=== PATIENT | female | born 1935 | race Caucasian/White ===

== ENCOUNTER 2017-01-10 18:32 | Emergency (ER) | payer MEDICARE ==
[2017-01-10] MEDS ORDERED: Ondansetron INJ* 2 MG/ML VIAL IV ONE (19:07)
[2017-01-10] MEDS ORDERED: Morphine INJ* 2 MG/ML 1 ML SYRINGE IV ONE (19:07)
[2017-01-10] MEDS ORDERED: NS 0.9% 1000 ML* 2,000 ML IV ONE (19:07)
[2017-01-10 19:52] LABS: Hematocrit 38 % (35-47); Hemoglobin 12.6 g/dl (12.0-16.0); Mean Corpuscular HGB Conc 33 g/dl (31-36); Mean Corpuscular Hemoglobin 31 pg (27-31); Mean Corpuscular Volume 94 fL (80-97); Mean Platelet Volume 9 um3 (7.4-10.4); Red Blood Count 4.05 10^6/ul (4.0-5.4); Red Cell Distribution Width 14 % (10.5-15); White Blood Count 5.8 10^3/ul (3.5-10.8)
[2017-01-10 20:09] LABS: Troponin I 0.03 ng/mL (<0.04)
[2017-01-10 20:11] LABS: ALT 9 U/L (7-52); AST 15 U/L (13-39); Albumin 3.8 g/dL (3.2-5.2); Alkaline Phosphatase 64 U/L (34-104); Amylase 68 U/L (29-103); Anion Gap 6 mmol/L (2-11); BUN/Creatinine Ratio 21.4 (8-20); Blood Urea Nitrogen 18 mg/dL (6-24); C Reactive Protein < 1.00 mg/L (< 5.00); CO2 Carbon Dioxide 25 mmol/L (22-32); Calcium 8.6 mg/dL (8.6-10.3); Chloride 107 mmol/L (101-111); Creatine Kinase 26 U/L (10-223); EGFR African American 83.3 (>60); EGFR Non-African American 64.8 (>60); Globulin 2.5 g/dL (2-4); Glucose 90 mg/dL (70-100); Lipase 22 U/L (11.0-82.0); Potassium 3.6 mmol/L (3.5-5.0); Sodium 138 mmol/L (133-145); Total Protein 6.3 g/dL (6.4-8.9)
[2017-01-10] MEDS ORDERED: Iohexol 300* (CONTRAST) 10 ML SDV IV ONE (20:57)
[2017-01-10 21:03] LABS: Urine Bacteria Absent (Absent); Urine Bilirubin Negative (Negative); Urine Glucose Negative (Negative); Urine Nitrite Negative (Negative)
--- NOTE | 2017-01-10 21:46 | RAD ---
CLINICAL HISTORY: Bilateral lower quadrant abdominal pain COMPARISON: None TECHNIQUE: Multiple contiguous axial CT scans were obtained of the abdomen and pelvis after the administration of intravenous contrast. Coronal and sagittal multiplanar reformations are submitted for review. Oral contrast was administered. Delayed images were obtained through the abdomen and pelvis. FINDINGS: LUNG BASES: The lung bases are clear. LIVER: The liver is diffusely low in attenuation compared to the spleen. There are low-attenuation lesions of the liver, the largest measuring 30 Hounsfield units in attenuation and is partially calcified. The others are too small to definitively characterize BILE DUCTS: There is no intrahepatic or extrahepatic biliary dilatation. GALLBLADDER: The gallbladder is normal, without pericholecystic inflammatory change. PANCREAS: The pancreas is normal, without mass or ductal dilatation. SPLEEN: Normal in size and appearance. UPPER GI TRACT: Evaluation of the gastrointestinal tract is limited by incomplete gastric distention. The upper GI tract is unremarkable. SMALL BOWEL AND MESENTERY: The small bowel is normal in contour, course, and caliber. There is no obstruction or dilatation. COLON: The colon is normal in contour, course, caliber. There is no pericolonic inflammatory change. There is large amount of stool within the colon. There is a tubular, vermiform, hollow viscus that is blind ending, and originates from the cecum, consistent with a normal appendix. There is no periappendiceal inflammatory change. ADRENALS: There is a 1.3 cm left adrenal nodule measuring 15 tonsils units in attenuation KIDNEYS: Simple renal cysts are noted BLADDER: The bladder is incompletely distended but is grossly normal. PELVIC ORGANS: The pelvic organs are not visualized. AORTA: There is calcific atherosclerotic disease of the abdominal aorta and its branches, without aneurysmal dilatation IVC: Unremarkable LYMPH NODES: There is no lymphadenopathy by size criteria. ABDOMINAL WALL: There is no evidence for abdominal wall hernia. BONES AND SOFT TISSUES: There is diffuse osteopenia. Degenerative changes are noted of the spine OTHER: None IMPRESSION: 1. INDETERMINATE LOW-ATTENUATION LESIONS OF THE LIVER. CLINICALLY INDICATED, THIS CAN BE FURTHER EVALUATED WITH HEPATIC ULTRASOUND, CONTRAST ENHANCED MRI OF THE ABDOMEN, MULTIPHASE CONTRAST-ENHANCED LIVER PROTOCOL CT OF THE ABDOMEN. 2. ATHEROSCLEROSIS. 3. INDETERMINATE LEFT ADRENAL NODULE. AN INCIDENTAL FINDING IN THE ABSENCE OF HISTORY OF MALIGNANCY, THIS CAN BE FOLLOWED UP WITH ADRENAL PROTOCOL MRI OR ADRENAL PROTOCOL CT IN ONE YEAR. 4. NO ACUTE CT PATHOLOGY OF THE VISUALIZED ABDOMEN OR PELVIS
--- NOTE | 2017-01-10 22:08 | ED ---
Mraielena Crawford Auryana, scribed for Chacorta Bo MD on 01/10/17 at 1910 . Abdominal Pain/Female - HPI Summary HPI Summary: 81 year old female comes in with intermittent abdominal fullness and bloating starting "a while ago". Patient states that she came in today because she has not been getting better. She reports small bowel movements-some improvement today, vomiting x1 on 4 days ago, decreased appetite with weight loss, and facial flushing, but denies diarrhea, blood in stool, SOB, chest pain, fever, and chills. Pain is improved with bowel movements. Recent course of ABX for U.R.I. Patient also reports that she has been under a lot of stress-10/28/16 's passing- and believes she has "ulcers". She denies any recent colonoscopy. PMHx is significant for hysterectomy and depression but denies any history of diverticulitis. Social history is significant for tobacco and alcohol use - History of Current Complaint Chief Complaint: EDAbdPain Stated Complaint: ABD PAIN Time Seen by Provider: 01/10/17 18:49 Hx Obtained From: Patient Hx Last Menstrual Period: N/A ?: No Onset/Duration: Gradual Onset, Still Present Timing: Intermittent Episode Lasting Severity Initially: Mild Severity Currently: Mild Location: Diffuse Radiates: No Character: Other: - bloating Aggravating Factor(s): Nothing Alleviating Factor(s): Nothing Associated Signs and Symptoms: Positive: Decreased Appetite - with weight loss, Vomiting - x1 4 days ago, Other: - small bowel movements, facial flushing. Negative: Chest Pain, Blood in Stool, Diarrhea Allergies/Adverse Reactions: Allergies Allergy/AdvReac Type Severity Reaction Status Date / Time No Known Allergies Allergy Verified 01/10/17 19:23 Home Medications: Home Medications Fluoxetine HCl [Prozac] 40 mg PO 01/10/17 [History] PMH/Surg Hx/FS Hx/Imm Hx Cardiovascular History: Denies: Hx Congenital Heart Disease Respiratory History: Denies: Hx Chronic Obstructive Pulmonary Disease (COPD) Psychiatric History: Reports: Hx Depression - Surgical History Surgery Procedure, Year, and Place: Hysterectomy Infectious Disease History: No Infectious Disease History: Denies: Traveled Outside the [place] in Last 30 Days - Family History Known Family History: Positive: Other - parkinsons - Social History Occupation: Retired Lives: With Family Alcohol Use: Occasionally Alcohol Amount: pt Hx Substance Use: No Substance Use Type: Reports: None Hx Tobacco Use: Yes Smoking Status (MU): Current Every Day Smoker Type: Cigarettes Review of Systems Constitutional: Other - facial flushing Eyes: Negative ENT: Negative Cardiovascular: Negative Negative: Chest Pain Respiratory: Negative Negative: Shortness Of Breath, Cough Positive: Abdominal Pain - fullness, Vomiting - 4 days ago, Other - decreased appetite with weight loss and small bowel movements. Negative: Nausea Genitourinary: Negative Musculoskeletal: Negative Skin: Negative Neurological: Negative Psychological: Normal All Other Systems Reviewed And Are Negative: Yes Physical Exam - Summary Physical Exam Summary: The patient is well-nourished in no acute distress and in no acute pain. The skin is warm and dry and skin color reflects adequate perfusion. Decreased skin turgor. HEENT: The head is normocephalic and atraumatic. The pupils are equal and reactive. The conjunctivae are clear and without drainage. Nares are patent and without drainage. Mouth reveals dry mucous membranes and the throat is without erythema and exudate. The external ears are intact. The ear canals are patent and without drainage. The tympanic membranes are intact. Neck is supple with full range of motion and non-tender. There are no carotid bruits. There is no neck vein distension. Respiratory: Chest is non-tender. Lungs are clear to auscultation and breath sounds are symmetrical and equal. No rales, rhonchi or wheezing. Cardiovascular: Heart is regular rate and rhythm. There is no murmur or rub auscultated. There is no peripheral edema and pulses are symmetrical and equal. Abdomen: The abdomen is soft and tender in the RLQ/LLQ. No percussion tenderness. No bruit. There are normal bowel sounds heard in all four quadrants and there is no organomegaly palpated. No pulsatile mass. Musculoskeletal: There is no back pain noted. Extremities are non-tender with full range of motion. There is good capillary refill- 2 seconds. There is no peripheral edema or calf tenderness elicited. Neurological: Patient is alert and oriented to person, place and time. The patient has symmetrical motor strength in all four extremities. Cranial nerves are grossly intact. Deep tendon reflexes are symmetrical and equal in all four extremities. Psychiatric: The patient has an appropriate affect and does not exhibit any anxiety or depression. Triage Information Reviewed: Yes Vital Signs On Initial Exam: Initial Vitals Temp Pulse Resp BP Pulse Ox 98.2 F 89 16 190/86 96 01/10/17 18:33 01/10/17 18:33 01/10/17 18:33 01/10/17 18:33 01/10/17 18:33 Vital Signs Reviewed: Yes - [place] Coma Scale Coma Scale Total: 15 Diagnostics - Vital Signs Vital Signs Temp Pulse Resp BP Pulse Ox 01/10/17 18:45 86 158/74 95 01/10/17 18:44 85 97 01/10/17 18:35 98.2 F 89 16 190/86 96 01/10/17 18:33 98.2 F 89 16 190/86 96 - Laboratory Lab Results: Lab Results 01/10/17 01/10/17 01/10/17 Range/Units 18:30 18:30 18:30 WBC 5.8 (3.5-10.8) 10^3/ul RBC 4.05 (4.0-5.4) 10^6/ul Hgb 12.6 (12.0-16.0) g/dl Hct 38 (35-47) % MCV 94 (80-97) fL MCH 31 (27-31) pg MCHC 33 (31-36) g/dl RDW 14 (10.5-15) % Plt Count 221 (150-450) 10^3/ul MPV 9 (7.4-10.4) um3 Neut % (Auto) 67.9 (38-83) % Lymph % (Auto) 21.0 L (25-47) % Coal % (Auto) 7.9 (1-9) % Eos % (Auto) 2.2 (0-6) % Baso % (Auto) 1.0 (0-2) % Absolute Neuts (auto) 4.0 (1.5-7.7) 10^3/ul Absolute Lymphs (auto) 1.2 (1.0-4.8) 10^3/ul Absolute Monos (auto) 0.5 (0-0.8) 10^3/ul Absolute Eos (auto) 0.1 (0-0.6) 10^3/ul Absolute Basos (auto) 0.1 (0-0.2) 10^3/ul Absolute Nucleated RBC 0 10^3/ul Nucleated RBC % 0 Sodium 138 (133-145) mmol/L Potassium 3.6 (3.5-5.0) mmol/L Chloride 107 (101-111) mmol/L Carbon Dioxide 25 (22-32) mmol/L Anion Gap 6 (2-11) mmol/L BUN 18 (6-24) mg/dL Creatinine 0.84 (0.51-0.95) mg/dL Est GFR ( Amer) 83.3 (>60) Est GFR (Non-Af Amer) 64.8 (>60) BUN/Creatinine Ratio 21.4 H (8-20) Glucose 90 (70-100) mg/dL Lactic Acid 0.6 (0.5-2.0) mmol/L Calcium 8.6 (8.6-10.3) mg/dL Total Bilirubin 0.40 (0.2-1.0) mg/dL AST 15 (13-39) U/L ALT 9 (7-52) U/L Alkaline Phosphatase 64 (34-104) U/L Total Creatine Kinase 26 (10-223) U/L Troponin I 0.03 (<0.04) ng/mL C-Reactive Protein < 1.00 (< 5.00) mg/L Total Protein 6.3 L (6.4-8.9) g/dL Albumin 3.8 (3.2-5.2) g/dL Globulin 2.5 (2-4) g/dL Albumin/Globulin Ratio 1.5 (1-3) Amylase 68 (29-103) U/L Lipase 22 (11.0-82.0) U/L Urine Color Urine Appearance Urine pH (5-9) Ur Specific [place] (1.010-1.030) Urine Protein (Negative) Urine Ketones (Negative) Urine Blood (Negative) Urine Nitrate (Negative) Urine Bilirubin (Negative) Urine Urobilinogen (Negative) Ur Leukocyte Esterase (Negative) Urine WBC (Auto) (Absent) Urine RBC (Auto) (Absent) Urine Bacteria (Absent) Urine Glucose (Negative) 01/10/17 Range/Units 20:40 WBC (3.5-10.8) 10^3/ul RBC (4.0-5.4) 10^6/ul Hgb (12.0-16.0) g/dl Hct (35-47) % MCV (80-97) fL MCH (27-31) pg MCHC (31-36) g/dl RDW (10.5-15) % Plt Count (150-450) 10^3/ul MPV (7.4-10.4) um3 Neut % (Auto) (38-83) % Lymph % (Auto) (25-47) % Coal % (Auto) (1-9) % Eos % (Auto) (0-6) % Baso % (Auto) (0-2) % Absolute Neuts (auto) (1.5-7.7) 10^3/ul Absolute Lymphs (auto) (1.0-4.8) 10^3/ul Absolute Monos (auto) (0-0.8) 10^3/ul Absolute Eos (auto) (0-0.6) 10^3/ul Absolute Basos (auto) (0-0.2) 10^3/ul Absolute Nucleated RBC 10^3/ul Nucleated RBC % Sodium (133-145) mmol/L Potassium (3.5-5.0) mmol/L Chloride (101-111) mmol/L Carbon Dioxide (22-32) mmol/L Anion Gap (2-11) mmol/L BUN (6-24) mg/dL Creatinine (0.51-0.95) mg/dL Est GFR ( Amer) (>60) Est GFR (Non-Af Amer) (>60) BUN/Creatinine Ratio (8-20) Glucose (70-100) mg/dL Lactic Acid (0.5-2.0) mmol/L Calcium (8.6-10.3) mg/dL Total Bilirubin (0.2-1.0) mg/dL AST (13-39) U/L ALT (7-52) U/L Alkaline Phosphatase (34-104) U/L Total Creatine Kinase (10-223) U/L Troponin I (<0.04) ng/mL C-Reactive Protein (< 5.00) mg/L Total Protein (6.4-8.9) g/dL Albumin (3.2-5.2) g/dL Globulin (2-4) g/dL Albumin/Globulin Ratio (1-3) Amylase (29-103) U/L Lipase (11.0-82.0) U/L Urine Color Straw Urine Appearance Clear Urine pH 7.0 (5-9) Ur Specific [place] 1.006 L (1.010-1.030) Urine Protein Negative (Negative) Urine Ketones Trace H (Negative) Urine Blood Negative (Negative) Urine Nitrate Negative (Negative) Urine Bilirubin Negative (Negative) Urine Urobilinogen Negative (Negative) Ur Leukocyte Esterase Trace H (Negative) Urine WBC (Auto) Trace(0-5/hpf) (Absent) Urine RBC (Auto) Trace(0-2/hpf) (Absent) Urine Bacteria Absent (Absent) Urine Glucose Negative (Negative) Result Diagrams: 01/10/17 18:30 01/10/17 18:30 Lab Statement: Any lab studies that have been ordered have been reviewed, and results considered in the medical decision making process. - CT ABD/PEL CT Interpretation: Positive (See Comments) - IMPRESSION: 1. INDETERMINATE LOW- ATTENUATION LESIONS OF THE LIVER. CLINICALLY INDICATED, THIS CAN BE FURTHER EVALUATED WITH HEPATIC ULTRASOUND, CONTRAST ENHANCED MRI OF THE ABDOMEN, MULTIPHASE CONTRAST-ENHANCED LIVER PROTOCOL CT OF THE ABDOMEN. 2. ATHEROSCLEROSIS. 3. INDETERMINATE LEFT ADRENAL NODULE. AN INCIDENTAL FINDING IN THE ABSENCE OF HISTORY OF MALIGNANCY, THIS CAN BE FOLLOWED UP WITH ADRENAL PROTOCOL MRI OR ADRENAL PROTOCOL CT IN ONE YEAR. 4. NO ACUTE CT PATHOLOGY OF THE VISUALIZED ABDOMEN OR PELVIS CT Interpretation Completed By: Radiologist - EKG 18:36 Cardiac Rate: Tachycardia EKG Rhythm: Sinus Tachycardia ST Segment: Normal Ectopy: None EKG Interpretation: Sinus Rhythm with PACs, no ST elevation, NML axis, No STEMI Re-Evaluation - Re-Evaluation First Eval Re-Evaluation Time: 20:58 - assess pain level and overall condition Change: Improved Comment: states feels a little better- refused pain medication Second Eval Re-Evaluation Time: 21:51 - discussed CT ABD/PEL results Change: Improved Comment: will discharge home Abdominal Pain Fem Course/Dx - Course Course Of Treatment: 81 year old female comes to the ED with abdominal bloating/ fullness, decreased appetite with weight loss, and small bowel movements. She reports being very stressed since husbands passing (10/28/16). Labs, EKG, and CT ABD/PEL ordered. Labs- NML. EKG shows sinus tachycardia with PACs-no STEMI, no ST elevation, nml axis. CT ABD/PEL- IMPRESSION: 1. INDETERMINATE LOW- ATTENUATION LESIONS OF THE LIVER. CLINICALLY INDICATED, THIS CAN BE FURTHER EVALUATED WITH HEPATIC ULTRASOUND, CONTRAST ENHANCED MRI OF THE ABDOMEN, MULTIPHASE CONTRAST-ENHANCED LIVER PROTOCOL CT OF THE ABDOMEN. 2. ATHEROSCLEROSIS. 3. INDETERMINATE LEFT ADRENAL NODULE. AN INCIDENTAL FINDING IN THE ABSENCE OF HISTORY OF MALIGNANCY, THIS CAN BE FOLLOWED UP WITH ADRENAL PROTOCOL MRI OR ADRENAL PROTOCOL CT IN ONE YEAR. 4. NO ACUTE CT PATHOLOGY OF THE VISUALIZED ABDOMEN OR PELVIS. Will discharge home. advise to increase fluids, take miralax , and follow up with Daphne Hatfield. - Diagnoses Differential Diagnosis: Positive: Appendicitis, Bowel Obstruction, Constipation , Diverticulitis, Gall Bladder Disease, Other - colitis Provider Diagnoses: Constipation, Dehydration Discharge - Discharge Plan Condition: Stable Disposition: HOME Patient Education Materials: Constipation (ED), Dehydration (ED), Polyethylene Glycol 3350 (By mouth) Referrals: Daphne Wood MD [Primary Care Provider] - 2 Days Additional Instructions: Increase fluids to stay hydrated and take Miralax for constipation relief The documentation as recorded by the Marielena rivera Auryana accurately reflects the service I personally performed and the decisions made by , Chacorta Bo MD.
[2017-01-10 22:50] VITALS: BP 179/74
== END 2017-01-10 22:50 | disposition home or self-care (01) ==
LOC: ED 18:32
DX: K59.00 Constipation, unspecified (principal); E86.0 Dehydration; R63.0 Anorexia; R11.10 Vomiting, unspecified
CPT/HCPCS: 36415; 74177; 80053; 81003; 81015; 82150; 82550; 83605; 83690; 84484; 85025; 86140; 87086; 93005; 96374; 96375; 99283; J2270; J2405; Q9967

== ENCOUNTER 2017-06-17 01:36 | Emergency (ER) | payer MEDICARE ==
[2017-06-17 02:31] LABS: Hematocrit 33 % (35-47); Hemoglobin 11.3 g/dl (12.0-16.0); Mean Corpuscular HGB Conc 34 g/dl (31-36); Mean Corpuscular Hemoglobin 32 pg (27-31); Mean Corpuscular Volume 94 fL (80-97); Mean Platelet Volume 9 um3 (7.4-10.4); Red Blood Count 3.55 10^6/ul (4.0-5.4); Red Cell Distribution Width 14 % (10.5-15); White Blood Count 5.2 10^3/ul (3.5-10.8)
[2017-06-17 02:48] LABS: Albumin 3.9 g/dL (3.2-5.2); BUN/Creatinine Ratio 33.7 (8-20); C Reactive Protein 2.61 mg/L (< 5.00); Calcium 8.8 mg/dL (8.6-10.3); EGFR African American 84.2 (>60); EGFR Non-African American 65.5 (>60); Globulin 2.5 g/dL (2-4); Potassium 3.5 mmol/L (3.5-5.0); Total Bilirubin 0.3 mg/dL (0.2-1.0); Total Protein 6.4 g/dL (6.4-8.9); Troponin I 0.01 ng/mL (<0.04)
[2017-06-17] MEDS ORDERED: Iohexol 300* (CONTRAST) 10 ML SDV IV ONE (04:38)
[2017-06-17 06:15] LABS: Urine Bilirubin Negative (Negative); Urine Glucose Negative (Negative); Urine Nitrite Negative (Negative)
--- NOTE | 2017-06-17 07:53 | RAD ---
INDICATION: Abdominal pain COMPARISON: None TECHNIQUE: An AP portable view obtained at 0224 hours is submitted. FINDINGS: Bones/Soft Tissues: There are no acute bony findings. Cardiomediastinal: The cardiomediastinal silhouette is normal. Lungs: There are no infiltrates. Pleura: There are no pleural effusions. Other: None IMPRESSION: NEGATIVE EXAMINATION
--- NOTE | 2017-06-17 08:04 | RAD ---
INDICATION: 82-year-old with right lower quadrant pain COMPARISON: CT January 10, 2017 TECHNIQUE: Axial source images were obtained from the hemidiaphragms to the symphysis pubis following administration of oral and intravenous contrast. 59 mL Omnipaque 300 was utilized. Coronal and sagittal reconstructed images were acquired. Lung bases: There are emphysematous changes in the lung bases. Liver: The liver is mildly enlarged. There are no new suspicious. There are several low-density hepatic lesions which likely cysts or hemangiomas. The appearance is stable. There is no ductal dilatation. Gallbladder: There are no calcified gallstones. There is no evidence of wall thickening or pericholecystic fluid. Spleen: The spleen is normal in size. There are no masses. Pancreas: There is no focal pancreatic mass or ductal dilatation. Adrenal glands: There is suspected mild adrenal hyperplasia. Kidneys: The kidneys are normal in size and position. There are prompt nephrograms and there is prompt excretion bilaterally. There are no new renal parenchymal masses. There are renal cysts, unchanged . There are several renal calcifications. Unchanged. These may represent nonobstructive calculi or could be vascular in origin. Adenopathy: There is no evidence of adenopathy by size criteria. Fluid collections: There are no free or localized fluid collections. Vessels:There are atherosclerotic changes involving the aorta and iliac vessels. There is no focal aneurysm. The IVC appears normal. GI tract: There are no acute CT bowel findings. There is no obstruction. The stomach and small bowel appear normal. The lower GI tract is normal. The cecum, ileocecal valve, and terminal ileum appear normal. The appendix is visualized and appear normal. Pelvic organs: There is hysterectomy. There is no adnexal mass Bladder: There are no bladder masses. Abdominal and pelvic soft tissues: There is a small fat-containing left inguinal hernia.. Osseous structures: There are no acute osseous findings. Other: None IMPRESSION: NO ACUTE CT FINDINGS. NO MASS OR INFLAMMATORY CHANGES. NORMAL APPENDIX.
[2017-06-17 08:32] VITALS: BP 189/83
--- NOTE | 2017-06-17 14:25 | ED ---
Liban Crawford Rebecca, scribed for Yenny Jerez MD on 06/17/17 at 0410 . Abdominal Pain/Female - HPI Summary HPI Summary: Pt is an 82 y/o F BIBA who presents to ED c/o RLE pain. Pt reports the pain has been present for "quite a while." The pain worsened tonight while she was standing in her kitchen where EMS found her guarding upon arrival. Upon arrival in the ED, pain has significantly improved, now ranked 1-2/10 and charcaterized as aching, though on triage pain was noted to be 3/10. Sx aggravated by nothing , alleviated by spontaneous resolution. Denies SOB. Pt was not given pain medication while en route to [facility] ED. Pt confirms that her appendix is still present. Pt recently picked up Librax and Prozac. - History of Current Complaint Chief Complaint: EDAbdPain Stated Complaint: ABD PAIN Hx Obtained From: Patient Hx Last Menstrual Period: N/A Onset/Duration: Still Present, Worse Since - Tonight Severity Initially: Severe Severity Currently: Mild Pain Intensity: 2 Pain Scale Used: 0-10 Numeric Location: Discrete At: RLQ Character: Other: - Aching Aggravating Factor(s): Nothing Alleviating Factor(s): Spontaneous Resolution Associated Signs and Symptoms: Positive: Negative Allergies/Adverse Reactions: Allergies Allergy/AdvReac Type Severity Reaction Status Date / Time No Known Allergies Allergy Verified 01/10/17 19:23 Home Medications: Home Medications chlordiazePOXIDE/Clidinium [Librax] 2.5 - 5 mg PO DAILY 06/17/17 [History Confirmed 06/17/17] PMH/Surg Hx/FS Hx/Imm Hx Endocrine/Hematology History: Denies: Hx Diabetes Cardiovascular History: Denies: Hx Congenital Heart Disease, Hx Hypertension Respiratory History: Denies: Hx Chronic Obstructive Pulmonary Disease (COPD) History: Denies: Hx Dialysis, Hx Renal Disease Psychiatric History: Reports: Hx Depression - Surgical History Surgery Procedure, Year, and Place: Hysterectomy Infectious Disease History: No Infectious Disease History: Denies: Traveled Outside the [place] in Last 30 Days - Family History Known Family History: Positive: Other - parkinsons - Social History Alcohol Use: Daily Alcohol Amount: several per day Hx Substance Use: No Substance Use Type: Reports: None Hx Tobacco Use: Yes Smoking Status (MU): Current Every Day Smoker Type: Cigarettes Review of Systems Negative: Shortness Of Breath Positive: Abdominal Pain All Other Systems Reviewed And Are Negative: Yes Physical Exam Triage Information Reviewed: Yes Vital Signs On Initial Exam: Initial Vitals Temp Pulse Resp BP Pulse Ox 98.4 F 78 16 139/66 98 06/17/17 01:41 06/17/17 01:41 06/17/17 01:41 06/17/17 01:41 06/17/17 01:41 Vital Signs Reviewed: Yes Appearance: Positive: Well-Appearing, Well-Nourished, Pain Distress - Mild Skin: Positive: Warm, Skin Color Reflects Adequate Perfusion Head/Face: Positive: Normal Head/Face Inspection Eyes: Positive: Conjunctiva Clear ENT: Positive: Normal ENT inspection Neck: Positive: Supple Respiratory/Lung Sounds: Positive: Clear to Auscultation, Breath Sounds Present , Other - No respiratory distress Cardiovascular: Positive: RRR, Pulses are Symmetrical in both Upper and Lower Extremities, Other - Brisk capillary refill. Negative: Murmur Abdomen Description: Positive: Nontender, No Organomegaly, Soft. Negative: CVA Tenderness (R), CVA Tenderness (L), Distended, Guarding, Hepatomegaly, McBurney' s Point Tenderness, Peritoneal Signs, Pulsatile Mass, Splenomegaly Bowel Sounds: Positive: Present Musculoskeletal: Positive: Strength/ROM Intact Neurological: Positive: Sensory/Motor Intact, Alert, Oriented to Person Place, Time, Facial Symmetry, Speech Normal Psychiatric: Positive: Normal - Brandon Coma Scale Coma Scale Total: 15 Diagnostics - Vital Signs Vital Signs Temp Pulse Resp BP Pulse Ox 06/17/17 04:00 81 23 95 06/17/17 03:54 80 22 179/85 94 06/17/17 03:30 81 23 195/86 94 06/17/17 03:00 79 21 175/83 95 06/17/17 02:34 80 23 155/79 96 06/17/17 01:41 98.4 F 78 16 139/66 98 - Laboratory Lab Results: Lab Results 06/17/17 06/17/17 06/17/17 Range/Units 02:20 02:20 02:20 WBC 5.2 (3.5-10.8) 10^3/ul RBC 3.55 L (4.0-5.4) 10^6/ul Hgb 11.3 L (12.0-16.0) g/dl Hct 33 L (35-47) % MCV 94 (80-97) fL MCH 32 H (27-31) pg MCHC 34 (31-36) g/dl RDW 14 (10.5-15) % Plt Count 196 (150-450) 10^3/ul MPV 9 (7.4-10.4) um3 Neut % (Auto) 70.0 (38-83) % Lymph % (Auto) 17.4 L (25-47) % Navarro % (Auto) 7.9 (1-9) % Eos % (Auto) 3.9 (0-6) % Baso % (Auto) 0.8 (0-2) % Absolute Neuts (auto) 3.7 (1.5-7.7) 10^3/ul Absolute Lymphs (auto) 0.9 L (1.0-4.8) 10^3/ul Absolute Monos (auto) 0.4 (0-0.8) 10^3/ul Absolute Eos (auto) 0.2 (0-0.6) 10^3/ul Absolute Basos (auto) 0 (0-0.2) 10^3/ul Absolute Nucleated RBC 0 10^3/ul Nucleated RBC % 0 INR (Anticoag Therapy) (0.89-1.11) APTT (26.0-36.3) seconds Sodium 137 (133-145) mmol/L Potassium 3.5 (3.5-5.0) mmol/L Chloride 104 (101-111) mmol/L Carbon Dioxide 25 (22-32) mmol/L Anion Gap 8 (2-11) mmol/L BUN 28 H (6-24) mg/dL Creatinine 0.83 (0.51-0.95) mg/dL Est GFR ( Amer) 84.2 (>60) Est GFR (Non-Af Amer) 65.5 (>60) BUN/Creatinine Ratio 33.7 H (8-20) Glucose 140 H (70-100) mg/dL Lactic Acid 1.9 (0.5-2.0) mmol/L Calcium 8.8 (8.6-10.3) mg/dL Total Bilirubin 0.30 (0.2-1.0) mg/dL AST 15 (13-39) U/L ALT 12 (7-52) U/L Alkaline Phosphatase 75 (34-104) U/L Total Creatine Kinase 31 (10-223) U/L Troponin I 0.01 (<0.04) ng/mL C-Reactive Protein 2.61 (< 5.00) mg/L B-Natriuretic Peptide ( - 100) pg/mL Total Protein 6.4 (6.4-8.9) g/dL Albumin 3.9 (3.2-5.2) g/dL Globulin 2.5 (2-4) g/dL Albumin/Globulin Ratio 1.6 (1-3) Amylase 57 (29-103) U/L Lipase 20 (11.0-82.0) U/L 06/17/17 06/17/17 Range/Units 02:20 02:20 WBC (3.5-10.8) 10^3/ul RBC (4.0-5.4) 10^6/ul Hgb (12.0-16.0) g/dl Hct (35-47) % MCV (80-97) fL MCH (27-31) pg MCHC (31-36) g/dl RDW (10.5-15) % Plt Count (150-450) 10^3/ul MPV (7.4-10.4) um3 Neut % (Auto) (38-83) % Lymph % (Auto) (25-47) % Navarro % (Auto) (1-9) % Eos % (Auto) (0-6) % Baso % (Auto) (0-2) % Absolute Neuts (auto) (1.5-7.7) 10^3/ul Absolute Lymphs (auto) (1.0-4.8) 10^3/ul Absolute Monos (auto) (0-0.8) 10^3/ul Absolute Eos (auto) (0-0.6) 10^3/ul Absolute Basos (auto) (0-0.2) 10^3/ul Absolute Nucleated RBC 10^3/ul Nucleated RBC % INR (Anticoag Therapy) 0.84 L (0.89-1.11) APTT 28.4 (26.0-36.3) seconds Sodium (133-145) mmol/L Potassium (3.5-5.0) mmol/L Chloride (101-111) mmol/L Carbon Dioxide (22-32) mmol/L Anion Gap (2-11) mmol/L BUN (6-24) mg/dL Creatinine (0.51-0.95) mg/dL Est GFR ( Amer) (>60) Est GFR (Non-Af Amer) (>60) BUN/Creatinine Ratio (8-20) Glucose (70-100) mg/dL Lactic Acid (0.5-2.0) mmol/L Calcium (8.6-10.3) mg/dL Total Bilirubin (0.2-1.0) mg/dL AST (13-39) U/L ALT (7-52) U/L Alkaline Phosphatase (34-104) U/L Total Creatine Kinase (10-223) U/L Troponin I (<0.04) ng/mL C-Reactive Protein (< 5.00) mg/L B-Natriuretic Peptide 91 ( - 100) pg/mL Total Protein (6.4-8.9) g/dL Albumin (3.2-5.2) g/dL Globulin (2-4) g/dL Albumin/Globulin Ratio (1-3) Amylase (29-103) U/L Lipase (11.0-82.0) U/L Result Diagrams: 06/17/17 02:20 06/17/17 02:20 Lab Statement: Any lab studies that have been ordered have been reviewed, and results considered in the medical decision making process. - Radiology CXR Xray Interpretation: No Acute Changes - NAD Radiology Interpretation Completed By: ED Physician - CT CT Abd/Pel CT Interpretation Completed By: Radiologist - Non bowel obstruction, colitis, diverticulitis, free fluid or free air. Normal appendix. Small probable hepatic cysts or hemangiomas, one with a punctate calcification. Unremarkable pancreas and galbladder. Bilateral renal cysts. Vascular calcifications versus small nonobstructing stones right kidney. Indeterminate 2 cm left adrenal nodule. Small left inguinal region hernia containing fat. Hysterectomy. Emphysematous changes lung bases. ED phsyician reviewed radiology report and agrees. - EKG 0405 Cardiac Rate: NL - 82 bpm EKG Rhythm: Sinus Rhythm EKG Interpretation: Nl AV/IV CT, nl QTC, LAD EKG Comparison: Other - Compared with EKG on 01/10/2017 she is now in sinus rhythm Re-Evaluation - Re-Evaluation First Eval Re-Evaluation Time: 05:35 Change: Improved Comment: Pt reports that she is feeling pretyt well with pain improves. Reports that her renuka is currently not present and that if she were home at this time, she would not have called EMS. Pt is surprised that her BP has been elevated because she is typically hypotensive. Denies dysuria and SOB. While evaluaitng the pt, her BP is 173/85. Denies SUTTON, chest pain. She receives injections and states that she epxerineced L-sided temporal pain a few days ago, but that pain is currently not bothering her. Typically BP is around 130/70-60. Second Eval Re-Evaluation Time: 06:43 Change: Improved Comment: Pt was asleep upon arrival in the room and she is without any pain. Denies any SUTTON, CP, SOB. BP was 171/77. Abdominal Pain Fem Course/Dx - Course Course Of Treatment: Pt is an 82 y/o F BIBA who presents to ED c/o RLE pain. Pt reports the pain has been present for "quite a while." The pain worsened tonight while she was standing in her kitchen where EMS found her guarding upon arrival. Upon arrival in the ED, pain has significantly improved, now ranked 1-2 /10 and charcaterized as aching, though on triage pain was noted to be 3/10. Sx aggravated by nothing, alleviated by spontaneous resolution. Denies SOB. Pt was not given pain medication while en route to [facility] ED. Pt confirms that her appendix is still present. Pt recently picked up Librax and Prozac. CXR reveals no acute findings, as read by ED physicain. CT Abd/Pel report found above. UA negative for UTI. Troponin of 0.01. Pt will be D/C to home with Dx of abdominal pain and asymptomatic hypertension. She understands and agrees. Patient medications reviewed this visit. Elevated BP noted. - Diagnoses Provider Diagnoses: Abdominal pain, Asymptomatic hypertension Discharge - Discharge Plan Condition: Stable Disposition: HOME Patient Education Materials: Acute Abdominal Pain (ED), Hypertension (ED) Referrals: Daphne Reyes MD [Primary Care Provider] - Additional Instructions: See Dr. Reyes as scheduled today. Your CT abd and pelvis with oral and IV contrast was negative. Your appenix was normal. We have given you a copy of your labs. You had elevated blood pressure while you were here in the ER, without any chest pain, shortness of breath or headache or neurologic changes. The highest was 198/72 and the lowest BP after 171/77 after it had been elevated. Your initial BP was 139/66. Return to the ED if you have any new or worsening symptoms. The documentation as recorded by the Liban rivera Rebecca accurately reflects the service I personally performed and the decisions made by me, Yenny Jerez MD.
== END 2017-06-17 10:06 | disposition home or self-care (01) ==
LOC: ED 01:36
DX: R10.9 Unspecified abdominal pain (principal); F17.210 Nicotine dependence, cigarettes, uncomplicated; I10 Essential (primary) hypertension
CPT/HCPCS: 36415; 71010; 74177; 80053; 81003; 82150; 82550; 83605; 83690; 83880; 84484; 85025; 85610; 85730; 86140; 93005; 99284; Q9967

== ENCOUNTER 2019-11-08 00:40 | Inpatient (IN) | payer MEDICARE ==
--- NOTE | 2019-11-08 00:56 | ED ---
Adult Trauma - HPI Summary HPI Summary: Complains of left hip pain status post mechanical fall. Patient on floor for 2 hours before being found. Patient denies any other pain, injury or symptoms. - History of Current Complaint Chief Complaint: EDFall Stated Complaint: LEG INJURY PER EMS Time Seen by Provider: 11/08/19 00:49 Hx Obtained From: Patient Hx Last Menstrual Period: N/A Mechanism of Injury: Fall Loss of Consciousness: unsure Onset of Pain: Immediate Onset Severity: Moderate Current Severity: Moderate Pain Intensity: 6 Pain Scale Used: 0-10 Numeric Location: Abdomen/Pelvis Character: Aching, Sharp Aggravating Factor(s): Movement Alleviating Factor(s): Nothing Associated Signs & Symptoms: Positive: Negative - Additional Pertinent History Primary Care Physician: MARCELO - Allergy/Home Medications Allergies/Adverse Reactions: Allergies Allergy/AdvReac Type Severity Reaction Status Date / Time No Known Allergies Allergy Verified 11/08/19 00:47 Home Medications: Home Medications FLUoxetine CAP* [PROzac CAP*] 60 mg PO DAILY 11/08/19 [History Confirmed ] PMH/Surg Hx/FS Hx/Imm Hx Endocrine/Hematology History: Denies: Hx Diabetes Cardiovascular History: Denies: Hx Congenital Heart Disease, Hx Hypertension Respiratory History: Denies: Hx Chronic Obstructive Pulmonary Disease (COPD) History: Denies: Hx Dialysis, Hx Renal Disease Musculoskeletal History: Reports: Hx Back Problems - low back pain reported in session Sensory History: Denies: Hx Contacts or Glasses, Hx Hearing Aid Opthamlomology History: Denies: Hx Contacts or Glasses EENT History: Denies: Hx Deafness Psychiatric History: Reports: Hx Depression - Surgical History Surgery Procedure, Year, and Place: Hysterectomy Infectious Disease History: No Infectious Disease History: Denies: Hx of Known/Suspected MRSA, Traveled Outside the [place] in Last 30 Days - Family History Known Family History: Positive: Other - Parkinson's - Social History Alcohol Use: Daily Alcohol Amount: several per day Hx Substance Use: No Substance Use Type: Reports: None Hx Tobacco Use: Yes Smoking Status (MU): Current Every Day Smoker Type: Cigarettes Review of Systems Constitutional: Negative Eyes: Negative ENT: Negative Cardiovascular: Negative Respiratory: Negative Gastrointestinal: Negative Genitourinary: Negative Musculoskeletal: Other Skin: Negative Neurological/Mental Status: Negative Psychological: Normal All Other Systems Reviewed And Are Negative: Yes Physical Exam - Summary Physical Exam Summary: Tenderness to palpation of left hip. No obvious deformity, ecchymosis, erythema , swelling. Normal exam of remainder of left lower extremity. PMS intact distally. Normal physical exam otherwise. Triage Information Reviewed: Yes Vital Signs On Initial Exam: Initial Vitals Temp Pulse Resp BP Pulse Ox 98.4 F 89 18 172/81 100 11/08/19 00:45 11/08/19 00:45 11/08/19 00:45 11/08/19 00:45 11/08/19 00:45 Vital Signs Reviewed: Yes Appearance: Positive: Well-Appearing Skin: Positive: Warm Head/Face: Positive: Normal Head/Face Inspection Eyes: Positive: Normal Neck: Positive: Supple Respiratory/Lung Sounds: Positive: Clear to Auscultation Cardiovascular: Positive: Normal Abdomen Description: Positive: Nontender Musculoskeletal: Positive: Normal Neurological: Positive: Normal Psychiatric: Positive: Normal AVPU Assessment: Alert - Brandon Coma Scale Best Eye Response: 4 - Spontaneous Best Motor Response: 6 - Obeys Commands Best Verbal Response: 5 - Oriented Coma Scale Total: 15 Procedures - Sedation Patient Received Moderate/Deep Sedation with Procedure: No Diagnostics - Vital Signs Vital Signs Temp Pulse Resp BP Pulse Ox 11/08/19 00:45 98.4 F 89 18 172/81 100 - Laboratory Result Diagrams: 11/08/19 19:32 11/08/19 19:32 Lab Statement: Any lab studies that have been ordered have been reviewed, and results considered in the medical decision making process. Adult Trauma Course/Dx - Course Course Of Treatment: Complains of left hip pain status post mechanical fall. Patient on floor for 2 hours before being found. Patient denies any other pain , injury or symptoms. Vital signs within normal limits. X-ray positive for left lateral neck fracture. Admitted to hospitalist. - Diagnoses Provider Diagnoses: Hip fracture, left Discharge ED - Sign-Out/Discharge Documenting (check all that apply): Patient Departure - Discharge Plan Condition: Stable Disposition: ADMITTED TO [facility] - Billing Disposition and Condition Condition: STABLE Disposition: Admitted to [facility]
[2019-11-08 01:57] LABS: ABS Lymphocytes 0.4 10^3/ul (1.0-4.8); ABS Monocytes 0.3 10^3/ul (0-0.8); Eosinophil % 0.2 %; Hematocrit 35 % (35-47); Hemoglobin 11.6 g/dL (12.0-16.0); Lymphocyte % 3.9 %; Mean Corpuscular HGB Conc 34 g/dL (31-36); Mean Corpuscular Hemoglobin 33 pg (27-31); Mean Corpuscular Volume 97 fL (80-97); Mean Platelet Volume 9.4 fL (7.4-10.4); Nucleated Red Blood Cells % 0.1; Platelet Count 222 10^3/uL (150-450); Red Blood Count 3.55 10^6 /uL (3.70-4.87); Red Cell Distribution Width 14 % (10-15); White Blood Count 9.6 10^3/uL (3.5-10.8)
[2019-11-08 02:14] LABS: ALT 18 U/L (7-52); AST 23 U/L (13-39); Albumin 4.5 g/dL (3.2-5.2); Albumin/Globulin Ratio 1.8 (1-3); Alkaline Phosphatase 102 U/L (34-104); Anion Gap 9 mmol/L (2-11); BUN/Creatinine Ratio 22.7 (8-20); Blood Urea Nitrogen 29 mg/dL (6-24); C Reactive Protein < 1.00 mg/L (<8.01); CO2 Carbon Dioxide 24 mmol/L (22-32); Calcium 9.1 mg/dL (8.6-10.3); Chloride 105 mmol/L (101-111); Creatine Kinase 69 U/L (10-223); EGFR African American 47.8 (>60); EGFR Non-African American 39.5 (>60); Globulin 2.5 g/dL (2-4); Glucose 136 mg/dL (70-100); Potassium 3.5 mmol/L (3.5-5.0); Sodium 138 mmol/L (135-145)
[2019-11-08] MEDS ORDERED: Morphine 4 MG/ML VIAL (1 ml) 4 MG/ML VIAL IV ONE (02:47)
[2019-11-08] MEDS ORDERED: Ondansetron INJ* 2 MG/ML VIAL IV ONE (02:47)
[2019-11-08] MEDS ORDERED: HYDROcodone/ACETAMIN 5-325 MG* 1 TAB PO PRN (03:10)
[2019-11-08] MEDS ORDERED: Morphine 4 MG/ML VIAL (1 ml) 4 MG/ML VIAL IV PRN (03:10)
--- OUTSIDE RECORDS SUMMARY | 2019-11-08 03:11 | XMS REPORT | Continuity of Care Document ---
:1935 External Reference #:[id number] Author Name Daphne Reyes MD Address [address] [place] [address] Problems Active Problems Provider Date Tobacco user Elisa Fields MD Onset: 06/05/2013 Age related macular degeneration Elisa Fields MD Onset: 03/27/2015 Major depressive disorder Elisa Fields MD Onset: 03/27/2015 Alcohol abuse Yunier Abbott PA Onset: 03/29/2016 Social History Type Date Description Comments Sex Unknown Tobacco Use Start: Unknown Patient is a current >60 years X 1 pack, now cigarette smoker, smokes 3/4 pack year every day ETOH Use Currently consumes alcohol Martini 1-2 shots qday Tobacco Use Start: Unknown Patient is a current smoker, smokes every day Smoking Status Reviewed: 06/25/19 Patient is a current smoker, smokes every day Allergies, Adverse Reactions, Alerts Active Allergies Reaction Severity Comments Date NKDA 01/19/2011 None 06/29/2007 Medications Active Medications SIG Qnty Indications Ordering Provider Date Loperamide HCL 1 po qd may take 30caps R19.7 Daphne Reyes 06/25/2019 2mg a second prn MD Garrick Capsules loose stool-Hold if no BM x 2 days Pantoprazole Sodium 1 by mouth every K21.9 Daphne Reyes 06/14/2019 day MD Garrick 20mg Tablets DR Metamucil Smooth 1/2 cap a day Daphne Reyes 12/01/2018 Texture MD Garrick 28.3% Powder Theragran-M E44.1 Daphne Reyes 10/17/2018 Tablets MD Garrick Vitamin D3 1 by mouth every E55.9 Daphne Reyes 09/29/2018 1000Unit day MD Garrick Capsules Fluticasone 2 sprays in each 16gm M26.601 Daphne Reyes 09/26/2018 Propionate nostril daily MD Garrick 50mcg/Act Suspension Fluoxetine HCL take 3 capsules 90caps F33.9 Daphne Reyes 11/25/2015 20mg by mouth once MD Garrick Capsules daily History Medications Chlordiazepoxide-Clidinium 1 po qd january 30caps R19.7 Amy, 06/25/2019 - 5-2.5mg Capsules take a Daphne Mccauley MD 06/25/2019 second prn Pantoprazole Sodium 1 by mouth 90tabs M54.5 Amy, 04/30/2019 - 40mg Tablets DR every day Daphne Mccauley MD 06/14/2019 Immunizations CPT Code Status Date Vaccine Lot # [id number] Given 06/25/2019 Influenza Vac, Quadrivalent, Split, 0.5mL Dosage, [id number] Im Use 16142 Given 05/19/2018 Influenza Vac, Quadrivalent, Split, 0.5mL Dosage, [id number] Im Use 22403 Given 06/17/2017 Influenza Vac, Quadrivalent, Split, 0.5mL Dosage, [id number] Im Use 80960 Given 02/14/2017 Pneumococcal 23 Immunization Adult Or [id number] Immunosuppressed Patient 11783 Given 05/31/2016 Influenza Vac, Quadrivalent, Split, 0.5mL Dosage, [id number] Im Use 72004 Given 12/02/2015 Tdap (Adacel) Ages 7 And Above Only [id number] 45006 Given 07/08/2015 Prevnar 13 Pneumococal Conjugate Vaccine [id number] 11364 Given 09/17/2009 Afluria Or Fluvirin Flu Vac Intramuscular [id number] 41726 Given 07/19/2007 Afluria Or Fluvirin Flu Vac Intramuscular 26580 Given 07/21/2005 Afluria Or Fluvirin Flu Vac Intramuscular [id number] 60935 Given 07/20/2004 Afluria Or Fluvirin Flu Vac Intramuscular Vital Signs Date Vital Result Comment 10/01/2019 2:02pm Body Temperature 98.8 F Weight 97.00 lb Heart Rate 88 /min BP Systolic 130 mmHg BP Diastolic 74 mmHg Height 62.5 inches 5'2.50" BMI (Body Mass Index) 17.5 kg/m2 06/25/2019 2:10pm Body Temperature 98.7 F Weight 98.00 lb Heart Rate 92 /min BP Systolic 128 mmHg BP Diastolic 60 mmHg Height 62.5 inches 5'2.50" BMI (Body Mass Index) 17.6 kg/m2 Results Test Acquired Date Facility Test Result H/L Range Note Laboratory test finding 10/01/2019 [facility] Vitamin B12 <pending> Vit D 25Oh <pending> Laboratory test finding 10/01/2019 [facility] Folate <pending> Iron Panel 04/30/2019 [facility] Iron, Total 79 g/dL 50-170 1 Transferrin 201.0 mg/dL Low 203.0-362.0 Tibc (calc) 281 g/dL 261-478 % Iron Saturation 28.1 % 13.0-45.0 Laboratory test finding 04/30/2019 [facility] Ferritin 96.7 ng/ml 11.0- 306.8 Vitamin D 25 Hydroxy 50 ng/mL 30-100 2 CBC with Auto Diff-fcmg 04/30/2019 [facility] WBC 5.2 K/uL 4.1-11.0 RBC 3.69 M/uL Low 4.00-5.40 Hemoglobin 11.6 gm/dL Low 12.0-16.0 Hematocrit 34.2 % Low 36.0-47.0 MCV 92.7 fL 80.0-97.0 MCH 31.3 pg 27.0-32.0 MCHC 33.8 g/dL 32.0-36.0 RDW 13.7 % 11.5-14.5 PLT Count 251 K/ul 140-400 MPV 11.2 FL High 7.1-10.7 Neutrophil 65.5 % 35.0-75.0 Lymphocyte 19.5 % 16.0-52.0 Monocyte 8.3 % 2.0-10.0 Eosinophil 4.9 % 0.0-5.0 Basophil 1.8 % 0.0-4.0 Abs Neutrophils 3.4 K/uL 2.1-8.0 Abs Lymphocytes 1.0 K/uL 0.8-5.5 Abs Monocytes 0.4 K/uL 0.1-1.0 Abs Eosinophils 0.3 K/uL 0.0-0.5 Abs Basophils 0.1 K/uL 0.0-0.3 Laboratory test finding 04/26/2019 [facility] H. Pylori Stool Ag SEE NOTE 3 Stool Panel 04/26/2019 [facility] Enteric Pathogens By PCR SEE NOTE 4 Lactoferrin,Fecal POSITIVE (Neg) 5 C Diff Toxin B/PCR-RL 04/26/2019 [facility] Specimen Description STOOL C Diff Toxin B NEGATIVE (Neg) 027 Nap1 B1 NEGATIVE (Neg) Comment NOTE: IF REFLEX <SEE NOTE> 6 Ova And Parasite Exm 04/26/2019 [facility] Oap Wet Mount Negative 7 [phone] Oap Trichrome Stain Negative 8 CBC with Auto Diff-fcmg 04/25/2019 [facility] WBC 4.7 K/uL 4.1-11.0 RBC 3.88 M/uL Low 4.00-5.40 Hemoglobin 12.1 gm/dL 12.0-16.0 Hematocrit 36.1 % 36.0-47.0 MCV 93.1 fL 80.0-97.0 MCH 31.3 pg 27.0-32.0 MCHC 33.6 g/dL 32.0-36.0 RDW 14.0 % 11.5-14.5 PLT Count 227 K/ul 140-400 MPV 10.0 FL 7.1-10.7 Neutrophil 72.6 % 35.0-75.0 Lymphocyte 17.9 % 16.0-52.0 Monocyte 5.9 % 2.0-10.0 Eosinophil 2.4 % 0.0-5.0 Basophil 1.2 % 0.0-4.0 Abs Neutrophils 3.4 K/uL 2.1-8.0 Abs Lymphocytes 0.8 K/uL 0.8-5.5 Abs Monocytes 0.3 K/uL 0.1-1.0 Abs Eosinophils 0.1 K/uL 0.0-0.5 Abs Basophils 0.1 K/uL 0.0-0.3 Comprehensive Met Panel-[facility] 04/25/2019 [facility] Sodium 142 mmol/L 135- 146 9 Potassium 4.5 mmol/L 3.5-5.2 Chloride# 105 mmol/L 97-110 10 Carbon Dioxide 27 mmol/L 24-34 Calcium 9.4 mg/dL 8.5-10.5 11 Glucose 108 mg/dL High 70-105 BUN 27 mg/dL High 6-26 Creatinine 1.1 mg/dL 0.5-1.4 Total Protein 6.7 g/dL 6.0-8.0 Albumin 4.1 g/dL 3.6-4.9 Globulin 2.6 g/dL 2.0-3.5 A/G Ratio 1.6 Ratio 1.0-2.2 Total Bilirubin 0.3 mg/dL 0.1-1.3 Alkaline Phosphatase 92 U/L 24-140 Alt 12 U/L 3-42 Ast 16 U/L 8-42 Anion Gap 10 mmol/L 5-15 12 Female Egfr 45 Low >60 13 Male Egfr 60 Low >60 14 Laboratory test finding 04/25/2019 [facility] Lipase 25 U/L 11-82 1 This sample is drawn by:NB. 2 Clinical Guidelines for recommended serum 25(OH)Vitamin D Deficient at less than 20 ng/mL Insufficient at 20 to <30 ng/mL Sufficient at 30-100 ng/mL Toxicity at greater than 100 ng/mL 3 SPECIMEN DESCRIPTION STOOL RESULT NEGATIVE FOR H. PYLORI ANTIGEN BY EIA REPORT STATUS FINAL 04/27/2019 Unless otherwise specified, testing performed [place] [address] 4 SPECIMEN DESCRIPTION STOOL SPECIAL REQUESTS NONE RESULT NEGATIVE FOR ENTERIC PATHOGENS BY PCR. NOTE: THIS MOLECULAR ASSAY DETECTS THE FOLLOWING ENTERIC PATHOGENS: CAMPYLOBACTER GROUP (COLI, JEJUNI, GOLD), SALMONELLA SPECIES, SHIGELLA SPECIES (DYSENTERIAE, BOYDII, SONNEI, FLEXNERI), VIBRIO GROUP (CHOLERAE, PARAHAEMOLYTICUS), YERSINIA ENTEROCOLITICA, SHIGA TOXIN 1, SHIGA TOXIN 2, NOROVIRUS GROUP 1 AND 2, ROTAVIRUS A. REPORT STATUS FINAL 04/27/2019 Unless otherwise specified, testing performed by [facility] [address] [place] [address] 5 PERFORMED AT [address] [place] [address] Unless otherwise specified, testing performed by [facility] [address] [place] [address] 6 NOTE: IF REFLEX CULTURE FOR KLEBSIELLA OXYTOCA IS CLINICALLY INDICATED, PLEASE CONTACT THE [facility] ([phone]) WITHIN 3 DAYS OF THIS REPORT. Unless otherwise specified, testing performed by [facility] [address] [place] [address] 7 Reference range: Negative 8 Reference range: Negative TEST INFORMATION: Ova and Parasite Exam, Fecal (Immunocompromised or Travel History) Method for identification of Ova and Parasites includes wet mount and trichromes stain. Due to the various shedding cycles of many parasites, three separate stool specimens collected over a 5-7-day period are recommended for ova and parasite examination. A single negative result does not rule out the possibility of a parasitic infection. Stool antigen testing is the optimal test method for determining the parasitic presence of Giardia, Cryptosporidium spp, or Entamoeba histolytica. The ova and parasite exam does not specifically detect Cryptosporidium, Cyclospora, Cystoisospora, and Microsporidia. For Cryptosporidium, refer to Cryptosporidium Antigen by EIA ([employer] test code 1823743). For Cyclospora and Cystoisospora, refer to Parasitology Stain by Modified [facility]-Fast ([employer] test code 6020568). For Microsporidia, refer to Microsporidia Stain ([employer] test code 2323893). Performed by [facility], [address] [place] [id number] www[facility], Aj Ramos MD, Lab. Director 9 Updated reference range on new analyzer 10 Updated reference range on new analyzer 11 Updated reference range 01-10-2019 12 Updated Reference Range 13 Concerning GFR Guidelines for Americans: Normal function or mild renal disease, if clinically at risk: >/= 60 mL/min Moderately decreased: 30-59 Severely decreased: 15-29 Renal failure: <15 There is reduced accuracy above 60ml/min/1.73 m squared, but the numeric value may be clinically useful in the near 60 range 14 Concerning GFR Guidelines: Normal function or mild renal disease, if clinically at risk: >/= 60 mL/min Moderately decreased: 30-59 Severely decreased: 15-29 Renal failure: <15 There is reduced accuracy above 60ml/min/1.73 m squared, but the numeric value may be clinically useful in the near 60 range Glomerular Filtration Rate (GFR) is estimated based on the CKD-EPI equation, which assumes a steady state for creatinine as recommended by the National Kidney Disease Education Program in conjunction with the National Institutes of Health and the National Kidney Foundation. Clinical conditions in which it may be necessary to measure GFR by using clearance methods include extremes of age and body size, severe malnutrition or obesity, diseases of skeletal muscle, paraplegia or quadriplegia, vegetarian diet, rapidly changing kidney function, and calculation of the dose of potentially toxic drugs that are excreted by the kidneys. Procedures Description No Information Available Medical Devices Description No Information Available Encounters Type Date Location Provider Dx Diagnosis Office Visit 06/25/2019 Daphne Jefferson R19.7 Diarrhea, unspecified 2:00p MD Garrick F10.10 Alcohol abuse, uncomplicated M54.5 Low back pain F33.9 Major depressive disorder, recurrent, unspecified K21.9 Gastro-esophageal reflux disease without esophagitis Z23 Encounter for immunization Z68.1 Body mass index (BMI) 19.9 or less, adult Office Visit 04/30/2019 2:30p Daphne Jefferson R19.7 Diarrhea, unspecified MD Garrick F10.10 Alcohol abuse, uncomplicated K58.2 Mixed irritable bowel syndrome F33.9 Major depressive disorder, recurrent, unspecified M54.5 Low back pain E55.9 Vitamin D deficiency, unspecified Z68.1 Body mass index (BMI) 19.9 or less, adult Office Visit 04/25/2019 10:40a Yunier Ash PA R19.7 Diarrhea, unspecified K58.2 Mixed irritable bowel syndrome F10.10 Alcohol abuse, uncomplicated Z68.1 Body mass index (BMI) 19.9 or less, adult Assessments Date Code Description Provider 10/01/2019 F33.9 Major depressive disorder, recurrent, Daphne Reyes MD unspecified 10/01/2019 E44.1 Mild protein-calorie malnutrition Daphne Reyes MD 10/01/2019 F10.10 Alcohol abuse, uncomplicated Daphne Reyes MD 10/01/2019 R19.7 Diarrhea, unspecified Daphne Reyes MD 10/01/2019 M54.5 Low back pain Daphne Reyes MD 10/01/2019 K21.9 Gastro-esophageal reflux disease without Daphne Reyes MD esophagitis 10/01/2019 D64.9 Anemia, unspecified Daphne Reyes MD 10/01/2019 E55.9 Vitamin D deficiency, unspecified Daphne Reyes MD 10/01/2019 H53.451 Other localized visual field defect, RIGHT Daphne Reyes MD eye 10/01/2019 Z68.1 Body mass index (BMI) 19.9 or less, adult Daphne Reyes MD 06/25/2019 R19.7 Diarrhea, unspecified Daphne Reyes MD 06/25/2019 F10.10 Alcohol abuse, uncomplicated Daphne Reyes MD 06/25/2019 M54.5 Low back pain Daphne Reyes MD 06/25/2019 F33.9 Major depressive disorder, recurrent, Daphne Reyes MD unspecified 06/25/2019 K21.9 Gastro-esophageal reflux disease without Daphne Reyes MD esophagitis 06/25/2019 Z23 Encounter for immunization Daphne Reyes MD 06/25/2019 Z68.1 Body mass index (BMI) 19.9 or less, adult Daphne Reyes MD 04/30/2019 D64.9 Anemia, unspecified [facility] 04/30/2019 R19.7 Diarrhea, unspecified Daphne Reyes MD 04/30/2019 E55.9 Vitamin D deficiency, unspecified [facility] 04/30/2019 R19.7 Diarrhea, unspecified [facility] 04/30/2019 F10.10 Alcohol abuse, uncomplicated Daphne Reyes MD 04/30/2019 K58.2 Mixed irritable bowel syndrome Daphne Reyes MD 04/30/2019 F33.9 Major depressive disorder, recurrent, Dapnhe Reyes MD unspecified 04/30/2019 M54.5 Low back pain Daphne Reyes MD 04/30/2019 E55.9 Vitamin D deficiency, unspecified Daphne Reyes MD 04/30/2019 Z68.1 Body mass index (BMI) 19.9 or less, adult Daphne Reyes MD 04/25/2019 R19.7 Diarrhea, unspecified Yunier Abbott PA 04/25/2019 K58.2 Mixed irritable bowel syndrome Yunier Abbott PA 04/25/2019 F10.10 Alcohol abuse, uncomplicated Yunier Abbott PA 04/25/2019 Z68.1 Body mass index (BMI) 19.9 or less, adult Yunier Abbott PA 04/25/2019 R19.7 Diarrhea, unspecified [facility] Plan of Treatment Future Appointment(s):01/07/2020 1:15 pm - Daphne Reyes MD at [facility]/01 - AmyDaphne MDF33.9 Major depressive disorder, recurrent, unspecifiedFollow up:3-4 mos as AWV/EV/PEE44.1 Mild protein-calorie fofdblxmcpuiD64.10 Alcohol abuse, kgwvsffliekxaS59.7 Diarrhea, slegekiagksX43.5 Low back painK21.9 Gastro-esophageal reflux disease without pdpcwwyaotyX69.9 Anemia, dubthqzswebX03.9 Vitamin D deficiency, kwdacvmclwpK69.451 Other localized visual field defect, RIGHT eyeZ68.1 Body mass index (BMI) 19.9 or less , adult Functional Status Description No Information Available Mental Status Description No Information Available Referrals Refer to Reason for Referral Status Appt Date Hong Navarrete M.D. 05/10-SCHEDULED WITH MICHAEL AND IS Closed 2018 [facility] [address] [place] [id number] [phone]
--- OUTSIDE RECORDS SUMMARY | 2019-11-08 03:11 | XMS REPORT | Continuity of Care Document ---
:1935 External Reference #:[id number] Author Name Dayo Luz M.D. Address [address] [place] [address] Care Team Providers Name Role Phone Daphne Reyes M.D. - Family Care Team Information Vocational Trainer [phone] Medicine Problems Active Problems Provider Date Anxiety Dayo Luz M.D. Onset: 03/03/2015 Exudative age-related macular degeneration Dayo Luz M.D. Onset: 03/10 Pseudophakia Dayo Luz M.D. 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 Onset: of right eye Age-related exudative macular degeneration Anaya Willingham O.D. Onset: of left eye Social History Type Date Description Comments Sex Unknown ETOH Use Consumes liquor once daily Tobacco Use Start: Unknown Light tobacco smoker (10 or fewer cigarettes/day) Recreational Drug Use Denies Drug Use Smoking Status Reviewed: 09/17/19 Light tobacco smoker (10 or fewer cigarettes/day) Allergies, Adverse Reactions, Alerts Description No Known Drug Allergies Medications Active Medications SIG Qnty Indications Ordering Provider Date Multi Vitamin Daily Unknown Tablets Advil as needed Unknown 200mg Tablets Fluoxetine HCL Take 3 Capsules By Unknown 20mg Mouth Every Day Capsules Budesonide TK 3 CS PO qd Unknown 3mg Caps DR Part Loperamide HCL TK 1 C PO Q Day. Unknown 2mg May TK A Second Capsules prn For Loose Stool-Hold If No BM For 2 Days Amlodipine Besylate take 1/2 tablet by Unknown 5mg mouth once daily Tablets Folic Acid take 1 tablet by Unknown 1mg Tablets mouth once daily Tramadol HCL take 1 tablet by Unknown 50mg mouth every 8 Tablets hours if needed for pain Vancomycin HCL take 1 capsule by Unknown 125mg mouth four times a Capsules day Medications Administered in Office Medication SIG Qnty Indications Ordering Provider Date Avastin Bevacizumab Dayo Luz M.D. 11/17/2015 Injection Avastin Bevacizumab Dayo Luz M.D. 10/13/2015 Injection Avastin Bevacizumab Dayo Luz M.D. 08/25/2015 Injection Avastin Bevacizumab Dayo Luz M.D. 07/14/2015 Injection Avastin Bevacizumab Dayo Luz M.D. 04/21/2015 Injection Avastin Bevacizumab Dayo Luz M.D. 03/03/2015 Injection Avastin Bevacizumab Dayo Luz M.D. 01/06/2015 Injection Unclassified Biologics, I.E. Dayo Luz M.D. 10/18/2014 Avastin Injection Unclassified Biologics, I.E. Adams Landry M.D. 06/25/2014 Avastin Injection Unclassified Biologics, I.EMaria Landry M.D. 04/23/2014 Avastin Injection Unclassified Biologics, I.EMaria Landry M.D. 02/06/2014 Avastin Injection Unclassified Biologics, I.EMaria Landry M.D. 11/28/2013 Avastin Injection Unclassified Biologics, I.E. Adams Landry M.D. 09/26/2013 Avastin Injection Unclassified Biologics, I.EMaria Landry M.D. 06/26/2013 Avastin Injection Unclassified Biologics, I.EMaria Landry M.D. 04/24/2013 Avastin Injection Unclassified Biologics, I.EMaria Landry M.D. 02/13/2013 Avastin Injection Unclassified Biologics, I.E. Adams Landry M.D. 01/15/2013 Avastin Injection Unclassified Biologics, I.EMaria Landry M.D. 11/15/2012 Avastin Injection Unclassified Biologics, I.E. Adams Landry M.D. 09/19/2012 Avastin Injection Unclassified Biologics, I.E. Adams Landry M.D. 08/08/2012 Avastin Injection Injection Dexamethasone Sodium Adams Landry M.D. 08/08/2012 Phosphate, 1 MG Injection Unclassified Biologics, I.E. Adams Landry M.D. 06/29/2012 Avastin Injection Unclassified Biologics, I.E. Adams Landry M.D. 05/25/2012 Avastin Injection Injection Dexamethasone Sodium Adams Landry M.D. 05/25/2012 Phosphate, 1 MG Injection Unclassified Biologics, I.E. Adams Landry M.D. 04/20/2012 Avastin Injection Injection Dexamethasone So Landyr M.D. 04/20/2012 Phosphate, 1 MG Injection Unclassified Biologics, I.E. Adams Landry M.D. 01/11/2012 Avastin Injection Injection Dexamethasone So Landry M.D. 01/11/2012 Phosphate, 1 MG Injection Unclassified Biologics, I.E. Adams Landry M.D. 08/17/2011 Avastin Injection Unclassified Biologics, I.EMaria Landry M.D. 06/23/2011 Avastin Injection Unclassified Biologics, I.EMaria Landry M.D. 05/24/2011 Avastin Injection Unclassified Biologics, I.E. Adams Landry M.D. 04/19/2011 Avastin Injection Immunizations Description No Information Available Vital Signs Date Vital Result Comment 11/17/2015 2:29pm BP Systolic 141 mmHg BP Diastolic 77 mmHg Heart Rate 88 /min Respiratory Rate 12 /min 10/13/2015 1:28pm BP Systolic 128 mmHg BP Diastolic 75 mmHg Heart Rate 78 /min Respiratory Rate 16 /min Results Description No Information Available Procedures Date Code Description Status 09/14/2019 28615 Est Patient Comprehensive Exam Completed Medical Devices Description No Information Available Encounters Description No Information Available Assessments Date Code Description Provider 09/17/2019 H35.3211 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 degeneration, left eye, with inactive choroidal neovascularization 09/14/2019 H35.3211 Exudative age-related macular Anaya Willingham O.D. degeneration, right eye, with active choroidal neovascularization 09/14/2019 H35.3222 Exudative age-related macular Anaya Willingham O.D. degeneration, left eye, with inactive choroidal neovascularization Plan of Treatment Future Appointment(s):03/03/2020 1:30 pm - Dayo Luz M.D. at Dayo Luz MD, 09/17/2019 - Dayo Luz M.D.H35.3211 Exudative age-related macular degeneration, right eye, with active choroidal neovascularizationComments:Smoking can increase the risk of developing or worsening any eye related disease, as well as affect your overall health. If you are a smoker, we strongly recommend that you quit.If you are not a smoker, we strongly recommend that you do not start. Dr. Luz can detect changes in your Macular Degeneration that require treatment in your right eye. It is very important to keep all of your appointments and follow Dr. Luz's instructions. If you have any questions, please call our office.H35.3222 Exudative age- related macular degeneration, left eye, with inactive choroidal neovascularizationComments:The wet Macular Degeneration in your left eye appears to be inactive at this time. Continue to monitor your vision, with each eye separately. Use your Amsler Grid and continue taking the AREDS 2 Formula Vitamins. If you notice any changes in your vision before your next appointment, please [facility] at to schedule an appointment.Follow up: Functional Status Description No Information Available Mental Status Description No Information Available Referrals Description No Information Available
--- OUTSIDE RECORDS SUMMARY | 2019-11-08 03:11 | XMS REPORT | Continuity of Care Document ---
:1935 External Reference #:[id number] Author Name Yuan Young M.D. Address [address] [place] [address] Care Team Providers Name Role Phone Daphne Reyes M.D. - Family Care Team Information Survey Technician Medicine Problems Active Problems Provider Date Anxiety [...] Use Denies Drug Use Smoking Status Reviewed: 10/05/19 Light tobacco smoker (10 or fewer cigarettes/day) [...] Landry M.D. 04/23/2014 Avastin Injection Unclassified Biologics, I.EMaira Landry M.D. 02/06/2014 Avastin Injection Unclassified Biologics, [...] M.D. 04/20/2012 Avastin Injection Injection Dexamethasone So Landry M.D. 04/20/2012 Phosphate, 1 MG Injection Unclassified Biologics, I.E. Adams Landry M.D. 01/11/2012 Avastin Injection Injection Dexamethasone So Landry M.D. 01/11/2012 Phosphate, 1 MG Injection Unclassified Biologics, I.E. Adams Landry M.D. 08/17/2011 Avastin Injection Unclassified Biologics, I.E. Adams Landry M.D. 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 degeneration, left eye, with inactive choroidal neovascularization 09/17/2019 H35.3211 Exudative age-related macular Dayo Luz [...] Dayo Luz M.D. at [facility], 10/05/2019 - Yuan Young M.D.H35.3211 Exudative age-related macular degeneration, right eye, with active choroidal neovascularizationComments:Smoking can increase the risk of developing or worsening any eye related disease, as well as affect your overall health. If you are a smoker, we strongly recommend that you quit.If you are not a smoker, we strongly recommend that you do not start. You have wet Macular Degeneration. Check your AmslerGrid, with each eye separately, and take the AREDS II formula vitamins. If you notice any changes inyour vision, please call the office to schedule a sooner appointment.Follow up:6 Month Follow Up DFE You can expect to have your eyes dilated at your next visit. If Dr. Young orders any additional testing, it may require extra time. We recommend that you bring sunglasses, as dilation drops often make you light sensitive until they wear off. We always recommend you bring someone to drive you home if you are uncomfortable driving with your eyes dilated. If you have any questions before your next visit, feel free to call our office at .H31.9061 Exudative age-related macular degeneration, left eye, with inactive choroidal neovascularizationComments:The wet Macular Degeneration in your left eye appears to be inactive at this time. Continue to monitor your vision, with each eye separately. Use your Amsler Grid and continue taking the AREDS 2 Formula Vitamins. If you notice any changes in your vision before your next appointment, please call theoffice at to schedule an appointment.Follow up: Functional Status Description No Information Available Mental Status Description No Information Available Referrals Description No Information Available
[2019-11-08] MEDS ORDERED: Thiamine INJ* 100 MG, Folic Acid IV* 1 MG, Multiple Vitamin IV ADULT* 10 ML in NS 0.9% ... IV ONE (03:25)
[2019-11-08 03:32] LABS: Urine Appearance Clear; Urine Bilirubin Negative (Negative); Urine Blood Negative (Negative); Urine Color Straw; Urine Glucose Negative (Negative); Urine Ketones Negative (Negative); Urine Nitrite Negative (Negative); Urine Protein Negative (Negative); Urine Specific Gravity 1.011 (1.010-1.030); Urine Urobilinogen Negative (Negative)
[2019-11-08] MEDS ORDERED: LORazepam TAB(*) 1 MG PO SCH (04:00)
--- NOTE | 2019-11-08 05:53 | HP ---
CC: Dr. Reyes; Dr. King * HISTORY AND PHYSICAL: DATE OF ADMISSION: 11/08/19 PRIMARY CARE PROVIDER: Dr. Reyes. ATTENDING PHYSICIAN WHILE IN THE HOSPITAL: Stefany East MD * (report dictated by Eddie Palmer NP) CONSULTING ORTHOPEDIST: Dr. King. CHIEF COMPLAINT: 1. Fall. 2. Hip pain. HISTORY OF PRESENT ILLNESS: Ms. Hedrick is an 84-year-old female patient who carries a history of depression and diverticulosis. She does smoke a pack of cigarettes a day and also drinks 2 vodka drinks every day, who comes in to the ER today stating she was going to pick something up, she was leaning forward, she went to go pick it up and that she lost her balance and fell, landed on her left side, did not hit her head, did not have loss of consciousness, had no chest pain prior to or after the event, but states that she was in a significant amount of pain particularly in her left hip. She states that she crawled to get to the phone, she called her friend who came over and tried to help, lift her up but they were unable to, she was in severe pain. They could tell that clearly something was wrong or broken. They called 911 and the patient presented to the hospital. She states that prior to this, she did not have any fevers or chills. No nausea or vomiting. No URI symptoms. She had been feeling well. She says generally she can walk up a flight of stairs and she does not get chest pain or shortness of breath. In the ER, she was found to have a fractured left hip, and because of this, we were asked to evaluate for admission. PAST MEDICAL HISTORY: 1. Depression. 2. Diverticulosis. PAST SURGICAL HISTORY: She has had a hysterectomy. MEDICATIONS: Home medications according to the patient includes Prozac 60 mg daily. ALLERGIES TO MEDICATIONS: Include no known drug allergies. FAMILY HISTORY: Her mother was healthy, of old age. Father had a history of depression. SOCIAL HISTORY: She is a pack a day smoker. She does drink vodka daily, 2 drinks. She lives alone. Surrogate decision maker is her son Gopi. REVIEW OF SYSTEMS: There is no documented fever. She denies having any significant weight change. No double vision. No ear discharge. No rhinorrhea. No sore throat. No thyroid enlargement. Denied having any chest pain. There is no orthopnea. No nocturnal dyspnea. There is no abdominal pain. There is no nausea, no vomiting. No dysuria, no frequency. No seizure, no loss of consciousness. No pruritus, no skin ulceration. Review of 14 systems completed, all others negative. PHYSICAL EXAMINATION GENERAL: At this time, Ms. Hedrick is an 84-year-old female patient, she is sitting in the ED stretcher, she does not appear to be in any acute distress. She is well nourished, well developed. VITAL SIGNS: Blood pressure 194/73, pulse 106, respirations 20, O2 sat 98%, temperature 98.4. HEENT: Head: Atraumatic, normocephalic. Eyes: EOMs are intact. Sclerae anicteric, not pale. Throat: Oral mucosa appears to be moist. No oropharyngeal erythema. NECK: Supple. LUNGS: Diminished in the bases. She had equal diaphragmatic expansion. HEART: Heart sounds S1, S2. Regular rate and rhythm. No murmurs, rubs, or gallops. ABDOMEN: Soft, flat, nontender. Bowel sounds present. EXTREMITIES: She cannot move the left lower extremity due to pain. It is clearly rotated and shortened. Distal CSM checks are intact. She had 5/5 strength in the upper extremities. NEUROLOGICAL: She is awake, alert. She is oriented x3. Speech clear. Tongue midline. Motor Hotel Manager equal. No gross focal deficits. SKIN: Intact. DIAGNOSTIC STUDIES/LAB DATA: WBC 9.6, RBC 3.55, hemoglobin 11.6, hematocrit 35 , platelet count 222. Sodium 138, potassium 3.5, chloride 105, bicarb 24, BUN 29, creatinine 1.28, slightly elevated from her baseline, glucose 136. Calcium 9.1. Total bili 0.3, AST 23, ALT 18, alk phos 102. CK 69. CRP less than 1. Albumin 4.5. She had a hip x-ray obtained today which does show a left hip fracture. She had a left femur x-ray, I do not see any gross fracture. There is a chest x- ray obtained, which shows an elevated diaphragm on the right side, which is chronic in nature, no effusions or infiltrates noted. She had a CT of the lumbar spine, I am awaiting the official report. She had a pelvis CT, which showed impression: Acute traumatic left femoral neck fracture. Old medical records reviewed. ASSESSMENT AND PLAN: Ms. Hedrick is an 84-year-old female patient coming in to the ER today with complaints of mechanical fall. On further evaluation, was found to have a left hip fracture. She will be admitted under inpatient status for: 1. Left hip fracture. At this point, the ER did touch base with Surgery. The patient will be made n.p.o. in case that she is taken today. In terms of risk stratification, I note her blood pressure is very elevated which could be pain related. My plan will be to treat her pain and see if this improves. If not, we could consider starting something like amlodipine and I would like to get an EKG to better risk stratify her. Her biggest risk is her advanced age and the fact that she is a continued smoker. There is probably some component of undiagnosed possibly chronic obstructive pulmonary disease, so will need aggressive pulmonary toileting postoperatively, but at this point, again I would like to try to get the blood pressure a little bit better controlled and then again assess her EKG. If this is stable and the blood pressure is stable, she is medically optimized for surgery. 2. Depression. Continue meds as prescribed. 3. Blood pressure, again it is elevated here. I think it is probably related to pain. She just received her first dose of morphine, so I would like to see if with pain control, the blood pressure comes down. If it does not, I will have a low threshold to start something given that her blood pressure is in the 190s. She is asymptomatic. 4. Alcoholism. I will go ahead and start her on the WAM protocol and I have ordered banana bag. 5. DVT prophylaxis: High risk, placed on heparin subcu. 6. Code status: She is a DNR/DNI. 7. Fluid, electrolytes, and nutrition: She will be n.p.o. pending orthopedic evaluation in case they decide to proceed to surgery today. TIME SPENT: Time spent on admission was 60 minutes, greater than half the time was spent [id number] with the patient obtaining my history and physical, other half time spent going over the plan of care with the patient and implementing plan of care. I did discuss the plan of care with my attending Dr. East, she is in agreement. EDDIE PALMER NP [id number]/[facility] #: [id number] [facility]OSPITALKate
[2019-11-08 05:58] LABS: ABS Lymphocytes 0.6 10^3/ul (1.0-4.8); ABS Monocytes 0.8 10^3/ul (0-0.8); ABS Neutrophils 10.5 10^3/ul (1.5-7.7); Hematocrit 35 % (35-47); Hemoglobin 11.5 g/dL (12.0-16.0); Lymphocyte % 4.8 %; Mean Corpuscular HGB Conc 33 g/dL (31-36); Mean Corpuscular Hemoglobin 32 pg (27-31); Mean Corpuscular Volume 97 fL (80-97); Mean Platelet Volume 9.8 fL (7.4-10.4); Platelet Count 242 10^3/uL (150-450); Red Blood Count 3.61 10^6 /uL (3.70-4.87); Red Cell Distribution Width 14 % (10-15); White Blood Count 11.8 10^3/uL (3.5-10.8)
[2019-11-08 06:06] LABS: INR 0.9 (0.82-1.09)
[2019-11-08] MEDS: amLODIPine TAB* 5 MG PO SCH ×2 (06:11→09:15)
[2019-11-08] MEDS: Heparin VIAL(*) 5000 UNITS/ML VIAL (FIVE THOUSAND) SUBCUT SCH ×2 (06:11→14:25)
[2019-11-08 06:22] LABS: Potassium 3.7 mmol/L (3.5-5.0)
[2019-11-08 06:27] LABS: BUN/Creatinine Ratio 24.1 (8-20); EGFR African American 55.8 (>60); EGFR Non-African American 46.1 (>60)
[2019-11-08] MEDS: Morphine INJ* 2 MG/ML 1 ML SYRINGE (TWO MG - NEW SYRINGE VERSION) IV PRN ×3 (07:34→17:41)
[2019-11-08] MEDS: hydrALAZINE IV* 20 MG/ML VIAL IV SLOW PU PRN ×2 (07:37→20:17)
[2019-11-08] MEDS: Cyclobenzaprine TAB* 10 MG PO PRN ×2 (09:15→20:17)
[2019-11-08] MEDS: FLUoxetine CAP* 20 MG PO SCH (09:15)
[2019-11-08] MEDS: Folic Acid TAB* 1 MG PO SCH (09:15)
[2019-11-08] MEDS: Multivitamins/Minerals TAB PO SCH (09:16)
[2019-11-08] MEDS: Thiamine TAB* 100 MG TAB PO SCH (09:16)
--- NOTE | 2019-11-08 09:33 | PN ---
Subjective Date of Service: 11/08/19 Interval History: Patient is still in very significant pain. Patient states the pain is in her hip. Patient denies sensory abnormalities in the fractured leg. Patient has chronic abdominal pain and diarrhea, but this is decreased. Patient denies F/C, N/V, CP, SOB, orthopnea, dizziness, headache, or other pain. Family History: Unchanged from Admission Social History: Unchanged from Admission Past Medical History: Unchanged from Admission Objective Active Medications: Acetaminophen (Tylenol Tab*) 650 mg PO Q4H PRN PRN Reason: PAIN - MILD Hydrocodone Bitart/Acetaminophen ([place] 5-325 Tab*) 1 tab PO Q4H PRN PRN Reason: PAIN - MODERATE Amlodipine Besylate (Norvasc Tab*) 5 mg PO DAILY [facility] Last Admin: 11/08/19 09:15 Dose: 5 mg Cyclobenzaprine HCl (Flexeril Tab*) 5 mg PO BID PRN PRN Reason: SPASMS Last Admin: 11/08/19 09:15 Dose: 5 mg Fluoxetine HCl (Prozac Cap*) 60 mg PO DAILY [facility] Last Admin: 11/08/19 09:15 Dose: 60 mg Folic Acid (Folvite Tab*) 1 mg PO DAILY [facility] Last Admin: 11/08/19 09:15 Dose: 1 mg Heparin Sodium (Porcine) (Heparin Vial(*)) 5,000 units SUBCUT Q8HR [facility] Last Admin: 11/08/19 06:11 Dose: 5,000 units Hydralazine HCl (Apresoline Iv*) 5 mg IV SLOW PU Q6H PRN PRN Reason: Systolic Bp Greater Than: 170 Last Admin: 11/08/19 07:37 Dose: 5 mg Sodium Chloride (Ns 0.9% 1000 Ml) 1,000 mls @ 75 mls/hr IV PER RATE [facility] Lorazepam (Ativan Tab(*)) 0 - 6 mg PO .PER [facility] PROTOCOL [facility]; Protocol Morphine Sulfate (Morphine Inj (Syringe))*) 2 mg IV Q4H PRN PRN Reason: PAIN - SEVERE Last Admin: 11/08/19 07:34 Dose: 2 mg Multivitamins/Minerals (Theragran/Minerals Tab*) 1 tab PO DAILY [facility] Last Admin: 11/08/19 09:16 Dose: Not Given Ondansetron HCl (Zofran Inj*) 4 mg IV Q6H PRN PRN Reason: NAUSEA Thiamine HCl (Vitamin B-1 Tab*) 100 mg PO DAILY [facility] Last Admin: 11/08/19 09:16 Dose: 100 mg Vital Signs - 8 hr 11/08/19 11/08/19 11/08/19 01:39 01:42 02:00 Temperature Pulse Rate 99 99 100 Respiratory 21 16 18 Rate Blood Pressure 201/100 200/92 (mmHg) O2 Sat by Pulse 100 100 100 Oximetry 11/08/19 11/08/19 11/08/19 02:12 02:46 02:51 Temperature Pulse Rate 99 101 Respiratory 16 17 20 Rate Blood Pressure 199/104 198/104 (mmHg) O2 Sat by Pulse 100 99 Oximetry 11/08/19 11/08/19 11/08/19 02:59 03:01 03:13 Temperature Pulse Rate 101 104 104 Respiratory 20 25 20 Rate Blood Pressure 181/88 194/73 (mmHg) O2 Sat by Pulse 98 98 98 Oximetry 11/08/19 11/08/19 11/08/19 03:42 03:55 04:00 Temperature Pulse Rate 107 110 110 Respiratory 19 34 24 Rate Blood Pressure 206/98 190/105 (mmHg) O2 Sat by Pulse 99 97 97 Oximetry 11/08/19 11/08/19 11/08/19 04:12 04:42 05:15 Temperature 97.3 F Pulse Rate 110 112 Respiratory 21 30 20 Rate Blood Pressure 194/99 199/153 200/95 (mmHg) O2 Sat by Pulse 97 98 Oximetry 11/08/19 11/08/19 11/08/19 05:30 05:56 06:04 Temperature 98.7 F Pulse Rate 109 106 Respiratory 20 20 Rate Blood Pressure 186/88 190/105 (mmHg) O2 Sat by Pulse 98 Oximetry 11/08/19 11/08/19 11/08/19 07:27 07:33 07:34 Temperature 97.5 F Pulse Rate 105 Respiratory 20 19 20 Rate Blood Pressure 187/76 (mmHg) O2 Sat by Pulse 98 Oximetry 11/08/19 09:27 Temperature Pulse Rate Respiratory Rate Blood Pressure 157/76 (mmHg) O2 Sat by Pulse Oximetry Oxygen Devices in Use Now: Nasal Cannula Appearance: Patient is an 84yo female who appears stated age and is sitting in the bed in NAD. Eyes: No Scleral Icterus, PERRLA Ears/Nose/Mouth/Throat: NL Teeth, Lips, Gums, Clear Oropharnyx, Mucous Membranes Moist Neck: NL Appearance and Movements; NL JVP, Trachea Midline Respiratory: Symmetrical Chest Expansion and Respiratory Effort, Clear to Auscultation Cardiovascular: NL Sounds; No Murmurs; No JVD, No Edema, - - Tachycardia Abdominal: NL Sounds; No Tenderness; No Distention, No Hepatosplenomegaly Lymphatic: No Cervical Adenopathy Extremities: No Edema, No Clubbing, Cyanosis Skin: No Rash or Ulcers, No Nodules or Sclerosis Neurological: Alert and Oriented x 3, NL Sensation, NL Muscle Strength and Tone , - - CN II-XII intact. Result Diagrams: 11/08/19 05:29 11/08/19 05:29 Assess/Plan/Problems-Billing Assessment: Patient is an 84yo female with a PMH for likely COPD, Likely HTN, here with a mechanical fall and a hip fracture, pending surgery. With severe HTN which is improving. - Patient Problems (1) Hip fracture Current Visit: Yes Status: Acute Code(s): S72.009A - FRACTURE OF UNSP PART OF NECK OF UNSP FEMUR, INIT SNOMED Code(s): 946132505 Comment: - Patient had a mechanical fall at home without head trauma or loss of conciousness - Patient is pending surgical repair of hip. - Patient's RCRI is 0, indicating a 3.9% change of MACE at 30 days. - Patient shows no signs of HF and is capable of >4 METs at baseline - Patient is markedly hypertensive, but this is improving. - Patient is medically optimized for surgery without need for additional cardiac testing (2) Tobacco abuse Current Visit: Yes Status: Acute Code(s): Z72.0 - TOBACCO USE SNOMED Code( s): 831021246 Comment: - Ongoing, likely COPD complicating - At risk for surgical complications with ongoing tobacco abuse. (3) Hypertension Current Visit: No Status: Acute Priority: Medium Code(s): I10 - ESSENTIAL (PRIMARY) HYPERTENSION SNOMED Code(s): 20289411 Comment: - Claims BP only elevated in Hospital - Markedly hypertensive without signs of end organ damage - Improving on Norvasc and Hydralazine PRN - Will likely need vacuum tester cans BP medications. (4) Depression Current Visit: Yes Status: Acute Code(s): F32.9 - MAJOR DEPRESSIVE DISORDER , SINGLE EPISODE, UNSPECIFIED SNOMED Code(s): 79701426 Comment: - Continue Prozac (5) DVT prophylaxis Current Visit: No Status: Acute Priority: Low Code(s): BJS7953 - SNOMED Code(s): 587861243 Comment: - Preop SCDs, hold heparin Status and Disposition: Inpatient for surgical hip management.
[2019-11-08] MEDS: NS 0.9% 1000 ML** 1,000 ML IV SCH (10:30)
--- NOTE | 2019-11-08 15:08 | PN ---
Progress Note - Progress Note Date of Service: 11/08/19 Note: Orthopedic consult done and dictated. Dr. King handed the patient off to me. Impression: Displaced left femoral neck fracture. Plan: Left total hip replacement. Surgery discussed with the patient and while I was examining her her son from [facility]. called and I discussed the fracture and the care I recommended with him. The particular advantage of the total hip over the hemiarthroplasty is that it is more certain to relieve pain in the long run than gaudencio arthroplasty. Leno Montaño MD.
--- NOTE | 2019-11-08 18:15 | CONS ---
CONSULTATION NOTE: DATE OF CONSULT: 11/08/19 LOCATION: Room 350. CHIEF COMPLAINT: Left hip region pain. 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 She states that for the past month she has used a cane and this is for security and she feels like her left knee bothers her some over time. Yesterday, as she was bending over to get something off the floor, she unfortunately fell and fractured her left hip. She did not have any prodrome to this fall and did not lose consciousness. After the fall, she managed to crawl and drag herself to a phone and then called for help and she was brought by ambulance to the hospital. The patient was carefully evaluated in the emergency room. She had an x-ray of the left hip. She had a study of her lumbar spine that did not show fracture, but does show arthritis and disk disease especially at lumbar 1 and 2 and she has no marked spinal stenosis. The patient was admitted last night by Eddie Palmer NP and then seen this morning by the hospitalist service, Mr. Tobias. PAST MEDICAL HISTORY: She has had depression and diverticulitis. PAST SURGICAL HISTORY: She is status post hysterectomy and oophorectomy. DAILY MEDICATIONS: Prozac 60 mg. SOCIAL HISTORY: She is a smoker of 1 pack per day. Two vodkas per day. PHYSICAL EXAM: Current examination: She is responsive, cooperative, breathing easily. She lifts her head off the pillow without any complaint of head or neck pain. Both of her arms elevate to shoulder elevation of 130 degrees. No marked discomfort with that. The left hip is tender. The left thigh has some swelling and tenderness. The left knee has an effusion. No marked tenderness of the left distal thigh or the knee. The left calf is soft and nontender. The dorsalis pedis pulse is 2+ on the left. The left foot is without swelling. The left ankle has active movements up and down and the toes are moving up and down actively. The right leg, she is able to do a heel slide and the right ankle has active up and down movements. No swelling of the right foot. DIAGNOSTIC STUDIES/LAB DATA: The x-ray shows a displaced left femoral neck fracture. The lumbar spine does not have any fracture. Today, the patient's laboratory work shows white blood count 11,800, hemoglobin 11.5, hematocrit 35, platelets 242,000. The electrolytes are normal. The BUN is 27, the creatinine is 1.12. The INR is 0.90 and the urinalysis is satisfactory. IMPRESSION AND PLAN: Displaced left femoral neck fracture. The patient is active and independent at home. Today, I discussed with her that we could do a hemiarthroplasty or a total hip arthroplasty and we have recommended a left total hip arthroplasty. I discussed this with the patient and with her son. The advantage of the total hip over the hemiarthroplasty is that the total hip replacement is somewhat more reliable for long-term pain relief. The plan is to proceed with a left total hip replacement on 11/09/19. The patient has felt to be clear and stable medically. She does have left ventricular hypertrophy. [id number]/[facility] #: [id number] JORDAN
[2019-11-08 19:53] LABS: ABS Lymphocytes 0.4 10^3/ul (1.0-4.8); ABS Monocytes 0.5 10^3/ul (0-0.8); ABS Neutrophils 8.6 10^3/ul (1.5-7.7); Hematocrit 34 % (35-47); Hemoglobin 11.4 g/dL (12.0-16.0); Lymphocyte % 4.6 %; Mean Corpuscular HGB Conc 34 g/dL (31-36); Mean Corpuscular Hemoglobin 33 pg (27-31); Mean Corpuscular Volume 97 fL (80-97); Mean Platelet Volume 9.7 fL (7.4-10.4); Platelet Count 209 10^3/uL (150-450); Red Blood Count 3.49 10^6 /uL (3.70-4.87); Red Cell Distribution Width 14 % (10-15); White Blood Count 9.6 10^3/uL (3.5-10.8)
[2019-11-08 20:09] LABS: EGFR African American 67.5 (>60); EGFR Non-African American 55.8 (>60)
[2019-11-08 20:22] LABS: Activated Partial Thrombo Time 43.8 seconds (26.0-38.0); INR 0.97 (0.82-1.09)
[2019-11-08] MEDS: Ondansetron INJ* 2 MG/ML VIAL IV PRN (21:15)
[2019-11-08] MEDS ORDERED: LORazepam INJ* 2 MG/ML 1 ML VIAL IV PUSH ONE (21:21)
[2019-11-08] MEDS ORDERED: Lorazepam PYXIS KEY PRN (21:21)
[2019-11-08] MEDS ORDERED: LORazepam INJ* 2 MG/ML 1 ML VIAL ONE (21:27)
[2019-11-08] MEDS ORDERED: Lorazepam PYXIS KEY ONE (21:28)
[2019-11-08] MEDS ORDERED: Heparin VIAL(*) 5000 UNITS/ML VIAL (FIVE THOUSAND) SUBCUT SCH (22:00)
[2019-11-09] MEDS: Acetaminophen TAB* 325 MG PO PRN (00:12)
[2019-11-09] MEDS: Morphine INJ* 2 MG/ML 1 ML SYRINGE (TWO MG - NEW SYRINGE VERSION) IV PRN ×2 (00:13→09:11)
[2019-11-09] MEDS: NS 0.9% 1000 ML** 1,000 ML IV SCH (02:40)
[2019-11-09] MEDS ORDERED: Buffered Lidocaine 1% SYRIN* 1 ML/SYRINGE INTRADERM ONE (08:29)
[2019-11-09] MEDS ORDERED: Famotidine IV* 10 MG/ML 2 ML (20 mg) IV ONE (08:29)
[2019-11-09] MEDS: hydrALAZINE IV* 20 MG/ML VIAL IV SLOW PU PRN (08:42)
[2019-11-09] MEDS: amLODIPine TAB* 5 MG PO SCH ×2 (08:54→10:21)
[2019-11-09] MEDS: FLUoxetine CAP* 20 MG PO SCH ×2 (08:55→10:21)
[2019-11-09] MEDS: Multivitamins/Minerals TAB PO SCH ×2 (08:55→10:21)
[2019-11-09] MEDS: Thiamine TAB* 100 MG TAB PO SCH ×2 (08:55→10:21)
[2019-11-09] MEDS: Folic Acid TAB* 1 MG PO SCH ×2 (08:55→10:21)
[2019-11-09] MEDS ORDERED: Lactated Ringers 1000 ML Bag* 1,000 ML IV SCH ×2 (09:00→18:16)
[2019-11-09] MEDS ORDERED: ceFAZolin 2 GM in NS PREMIX(*) 2 GM/100 ML BAG IVPB ONE (12:54)
[2019-11-09] MEDS ORDERED: Rocuronium* 10 MG/ML VIAL ONE (13:19)
[2019-11-09] MEDS ORDERED: Etomidate* 2 MG/ML 10 ML VIAL ONE (13:19)
[2019-11-09] MEDS ORDERED: Bupivacaine 0.5% W/EPI SDV* 30 ML VIAL ONE (13:26)
[2019-11-09] MEDS ORDERED: Phenylephrine 1% NASAL* 15 ML BOT ONE (13:48)
[2019-11-09] MEDS ORDERED: HYDROmorphone INJ1* 1 MG/ML SYRINGE ONE (15:01)
[2019-11-09] MEDS ORDERED: Sugammadex * 200 MG/2 ML VIAL IV PUSH ONE (15:03)
[2019-11-09] MEDS ORDERED: Metoprolol Tartrate IV* 1 MG/ML 5 ML VIAL ONE (15:25)
[2019-11-09] MEDS ORDERED: HYDROmorphone INJ1* 1 MG/ML SYRINGE IV PRN (15:58)
[2019-11-09] MEDS ORDERED: Naloxone* 0.4 MG/ML 1 ML VIAL IV PRN (15:58)
[2019-11-09] MEDS ORDERED: Ondansetron INJ* 2 MG/ML VIAL IV PRN (15:58)
[2019-11-09] MEDS ORDERED: Acetaminophen IV 1GM/100ML * 1,000 MG/100 ML VIAL IVPB ONE (15:58)
[2019-11-09] MEDS ORDERED: Dexamethasone IV* 4 MG/ML 1 ML (4 MG) IV SLOW PU ONE (16:00)
[2019-11-09] MEDS ORDERED: Dexamethasone IV* 4 MG/ML 1 ML (4 MG) ONE ×2 (16:15→16:23)
[2019-11-09] MEDS ORDERED: Acetaminophen IV 1GM/100ML * 100 ML ONE (16:15)
[2019-11-09] MEDS ORDERED: Dexamethasone IV* 4 MG/ML 5 ML VIAL (20 MG) ONE (16:22)
--- NOTE | 2019-11-09 18:15 | PN ---
Hospitalist Progress Note Date of Service: 11/09/19 Discussed patient with PACU nurses. Patient unable to support her airway and needing nasal trumpet. Patient to be transferred to ICU. Discussed transfer with ICU attending who will be taking over patient's care.
--- NOTE | 2019-11-09 18:27 | PN ---
Progress Note - Progress Note Date of Service: 11/09/19 Note: Consultation Note -- Critical Care Requesting Physician: Dr Montaño Reason for consult: ICU level of care postop Limitations in history/physical: Limited to only chart review and nursing. Patient level 5 caveat Date of consult: 11/09/19 HPI: 84F with known medical history of depression and diverticulosis who had a fall at home on 11/08/19. Ultimately discussed she had fractured her left hip. She was admitted to [facility] and underwent left total hip replacement. Post-op, she was obtunded, requiring nasal trumpet. Ortho has requested her to be monitored in ICU post op. ROS: ROS unable to be obtained secondary to mental status change PMHx: depression, diverticulosis PSHx: hysterectomy Family History: mother no medical problems, father depression Social History: tobacco and etoh use Allergies: NKDA Home Medications: FLUoxetine CAP* [PROzac CAP*] 60 mg PO DAILY 11/08/19 [History Confirmed ] Tele: sinus tach Vitals: Vital Signs 11/08/19 11/08/19 11/08/19 18:19 19:12 20:17 Temperature 99.1 F Pulse Rate 99 98 Respiratory 18 18 20 Rate Blood Pressure 187/72 190/77 (mmHg) O2 Sat by Pulse 97 97 Oximetry 11/08/19 11/08/19 11/08/19 20:20 20:25 21:32 Temperature Pulse Rate Respiratory 18 20 Rate Blood Pressure 180/89 (mmHg) O2 Sat by Pulse Oximetry 11/08/19 11/08/19 11/09/19 22:16 22:37 00:00 Temperature Pulse Rate 101 103 Respiratory 20 20 18 Rate Blood Pressure 160/89 (mmHg) O2 Sat by Pulse 95 Oximetry 11/09/19 11/09/19 11/09/19 00:04 00:13 02:11 Temperature 100.0 F 98.3 F Pulse Rate 99 105 Respiratory 16 18 20 Rate Blood Pressure 170/86 159/80 (mmHg) O2 Sat by Pulse 96 95 Oximetry 11/09/19 11/09/19 11/09/19 02:59 03:44 04:59 Temperature 97.8 F Pulse Rate 99 Respiratory 18 20 18 Rate Blood Pressure 150/88 (mmHg) O2 Sat by Pulse 96 Oximetry 11/09/19 11/09/19 11/09/19 05:55 08:02 09:11 Temperature 98.3 F 97.5 F Pulse Rate 100 102 Respiratory 20 22 20 Rate Blood Pressure 158/82 181/79 (mmHg) O2 Sat by Pulse 96 95 Oximetry 11/09/19 11/09/19 11/09/19 10:00 10:26 15:39 Temperature 97.8 F Pulse Rate 103 83 Respiratory 16 18 Rate Blood Pressure 151/65 (mmHg) O2 Sat by Pulse 97 90 Oximetry 11/09/19 11/09/19 11/09/19 15:40 15:46 15:52 Temperature 99.3 F Pulse Rate 87 85 92 Respiratory 22 18 21 Rate Blood Pressure 162/78 136/78 167/66 (mmHg) O2 Sat by Pulse 92 93 95 Oximetry 11/09/19 11/09/19 11/09/19 15:56 16:00 16:06 Temperature Pulse Rate 87 85 85 Respiratory 17 16 21 Rate Blood Pressure 162/73 171/85 171/74 (mmHg) O2 Sat by Pulse 100 100 100 Oximetry 11/09/19 11/09/19 11/09/19 16:11 16:16 16:31 Temperature Pulse Rate 85 85 88 Respiratory 19 18 18 Rate Blood Pressure 150/68 149/62 172/77 (mmHg) O2 Sat by Pulse 99 97 100 Oximetry 11/09/19 11/09/19 11/09/19 16:45 16:46 17:00 Temperature 100.0 F Pulse Rate 84 82 Respiratory 21 23 Rate Blood Pressure 135/57 139/67 (mmHg) O2 Sat by Pulse 98 96 Oximetry 11/09/19 11/09/19 11/09/19 17:15 17:31 17:45 Temperature Pulse Rate 85 86 86 Respiratory 20 22 21 Rate Blood Pressure 151/74 164/72 146/65 (mmHg) O2 Sat by Pulse 98 93 99 Oximetry 11/09/19 11/09/19 18:00 18:14 Temperature 100.0 F Pulse Rate 86 Respiratory 22 Rate Blood Pressure 143/74 (mmHg) O2 Sat by Pulse 97 Oximetry Intake and Output Last 24 Hours 11/07/19 11/08/19 11/09/19 11/10/19 06:59 06:59 06:59 06:59 Intake Total 200 2089 1200 Output Total 2775 250 Balance 200 -686 950 Weight 92 lb 112 lb 12.8 oz Intake: IV Fluids 200 1769 1200 BANANA BAG 200 789 LR 1100 NS 980 NS 100ML, Cefazolin 2G 100 Oral 0 320 Output: De 2775 250 O2: 10L facemask Infusions: LR @ 100 Current Medications: Acetaminophen (Tylenol Tab*) 650 mg PO Q4H PRN PRN Reason: PAIN - MILD Last Admin: 11/09/19 00:12 Dose: 650 mg Amlodipine Besylate (Norvasc Tab*) 5 mg PO DAILY [facility] Last Admin: 11/09/19 10:21 Dose: 5 mg Dexamethasone Sodium Phosphate (Decadron Iv*) 8 mg IV SLOW PU ONCE ONE Stop: 11/09/19 16:01 Last Admin: 11/09/19 16:25 Dose: 8 mg Fluoxetine HCl (Prozac Cap*) 60 mg PO DAILY [facility] Last Admin: 11/09/19 10:21 Dose: 60 mg Folic Acid (Folvite Tab*) 1 mg PO DAILY [facility] Last Admin: 11/09/19 10:21 Dose: 1 mg Hydralazine HCl (Apresoline Iv*) 5 mg IV SLOW PU Q6H PRN PRN Reason: Systolic Bp Greater Than: 170 Last Admin: 11/09/19 08:42 Dose: 5 mg Cefazolin Sodium 1 gm/ Sodium (Chloride) 50 mls @ 200 mls/hr IVPB Q8H [facility] Stop: 11/10/19 13:44 Lorazepam (Ativan Tab(*)) 0 - 6 mg PO .PER [facility] PROTOCOL [facility]; Protocol Miscellaneous (Ativan Pyxis Stubbs) 1 ea N/A .ATIVAN IV STUBBS PRN PRN Reason: PYXIS STUBBS Multivitamins/Minerals (Theragran/Minerals Tab*) 1 tab PO DAILY [facility] Last Admin: 11/09/19 10:21 Dose: 1 tab Naloxone HCl (Narcan*) 0.08 mg IV Q2M PRN PRN Reason: severe induced resp depression Ondansetron HCl (Zofran Inj*) 4 mg IV Q6H PRN PRN Reason: NAUSEA Last Admin: 11/08/19 21:15 Dose: 4 mg Ondansetron HCl (Zofran Inj*) 4 mg IV ONCE PRN PRN Reason: NAUSEA/VOMITING Thiamine HCl (Vitamin B-1 Tab*) 100 mg PO DAILY [facility] Last Admin: 11/09/19 10:21 Dose: 100 mg Physical Exam: Constitutional: obtunded but does attempt to open her eyes, laying on stretcher no apparent distress Head: normocephalic, atraumatic Eyes: no pallor, no icterus ENT: dry mucous membranes, nasal trumpet in place Neck: soft, supple, no jvd, no stridor CVS: normal rate, regular, no murmur Chest/Resp: bilateral air entry, diminished throughout, no rhales, no wheeze, no rhonchi, no acc muscle use Abdomen/GI: soft, nontender, nondistended, BS+ Ext/Msk: warm, pulses+, no edema, post op wedge in place Skin: intact, warm Neuro: obtunded but does attempt to open eyes. Follows commands. Moving all extremities, no gross focal deficit Labs: Laboratory Results - last 24 hr 11/08/19 11/08/19 11/08/19 19:32 19:32 19:32 WBC 9.6 RBC 3.49 L Hgb 11.4 L Hct 34 L MCV 97 MCH 33 H MCHC 34 RDW 14 Plt Count 209 MPV 9.7 Neut % (Auto) 89.4 Lymph % (Auto) 4.6 [place] % (Auto) 5.7 Eos % (Auto) 0.0 Baso % (Auto) 0.3 Absolute Neuts (auto) 8.6 H Absolute Lymphs (auto) 0.4 L Absolute Monos (auto) 0.5 Absolute Eos (auto) 0.0 Absolute Basos (auto) 0.0 Absolute Nucleated RBC 0.0 Nucleated RBC % 0.0 INR (Anticoag Therapy) 0.97 APTT 43.8 H BUN 20 Creatinine 0.95 Est GFR ( Amer) 67.5 Est GFR (Non-Af Amer) 55.8 Blood Type Antibody Screen 11/08/19 11/09/19 19:32 04:45 WBC RBC Hgb Hct MCV MCH MCHC RDW Plt Count MPV Neut % (Auto) Lymph % (Auto) [place] % (Auto) Eos % (Auto) Baso % (Auto) Absolute Neuts (auto) Absolute Lymphs (auto) Absolute Monos (auto) Absolute Eos (auto) Absolute Basos (auto) Absolute Nucleated RBC Nucleated RBC % INR (Anticoag Therapy) APTT BUN Creatinine Est GFR ( Amer) Est GFR (Non-Af Amer) Blood Type O Positive O Positive Antibody Screen Negative Imaging: Pelvis xray 11/09: s/p left complete hip replacement in place with normal alignment Hip/pelvis left 11/08: Displaced left subcapital femoral neck fracture Assessment: 84F who presents on 11/08/19 after fall at home, found to have left hip fracture. S/p left total hip replacement on 11/09. Post-op, she was not able to oxygenate, too lethargic so a nasal trumpet was placed with good effect. ICU team asked to consult and transfer to ICU Plan: Neuro- - AMS: d/t anesthesia. Patient will need time to clear anesthesia. Monitor for changes in mental status -Delirium prec; avoid BDZ CVS- - No active issues - Maintain MAP>65 as long as SBP<160 Resp- - Hypoxia: acute. Patient unable to oxygenate at this time on her own so a nasal trumpet was placed with a facemask with positive results. Patient likely needs to clear anesthesia and will continue to improve. -Wean Fio2 to keep sat>92% - Aspiration prec, Pulmonary Toilet ID- - No active issues GI- -Nutrition: NPO Renal- -strict I/O, replete to keep K>4, Mg>2 -de Heme- - SCDs for DVT prophy;laxis when cleared by ortho Endo- Maintain BG<200, insulin protocol as needed Musculsk- pressure ulcer prophylaxis. Bedrest. Wounds- none Nutrition-npo DVT prophylaxis:scds when cleared by ortho De Catheter:continue Disposition: Admit to ICU; Expected LOS>2 midnights; Patient requires Critical Care/ICU for airway monitoring and management Patient Clinical Status: stable Code Status: FULL Dr Conteh had lengthy discussion with son Gopi Hedrick. Dr Conteh has informed her son of her condition and possible outcomes. He states that patient was DNR/ DNI before surgery and this was rescinded for surgery. He would like to keep patient FULL CODE for 24hrs, which will be 11/10/19 @ 1300. At that time, she will go back to DNR/DNI. However, we do not have copy of MOL so he will need to complete this Total Critical Care time is 45 minutes
[2019-11-09] MEDS: ceFAZolin 1 GM ADVAN(*) 1 GM in NS 0.9% 50 ML* 50 ML IVPB SCH (21:27)
--- NOTE | 2019-11-10 01:51 | OP ---
DATE OF OPERATION: 11/09/19 - ROOM #337 DATE OF : 31 SURGICAL CARE: Left hip. SURGEON: Leno Montaño MD. SOLID TIRE FINISHER: SUSI Sanchez; nurse first aid. ANESTHESIOLOGIST: Dr. Monterroso. ANESTHESIA: Endotracheal tube, general. PRE-OP DIAGNOSIS: Displaced left femoral neck fracture. POST-OP DIAGNOSIS: Displaced left femoral neck fracture. OPERATIVE PROCEDURE: Left total hip arthroplasty. COMPONENTS UTILIZED: Kailyn Continuum cup 46 mm outer diameter with 1 screw and on the liner, it is an elevated liner located posteriorly. The liner is a polyethylene and it is for a 28 head. The femoral side is a reduced neck M/L taper standard size 7.5 and the head is a -3.5, 28 mm cobalt-chrome head. COMPLICATIONS: There were no complications. DRAINS: There were no drains. BLOOD LOSS: 100 mL. REPLACEMENT: Crystalloid fluids. INDICATIONS: Displaced left femoral neck fracture. We thought this was the best recommendation for this patient. Local anesthetic was inserted around the hip prosthesis and in the skin and subcutaneous tissues at the end of the case, 30 mL of 0.5% Marcaine with epinephrine. DESCRIPTION OF PROCEDURE: The patient was brought to the operating room in the hospital bed. The general anesthetic and insertion of the endotracheal tube was done in the bed. The patient was then gently moved to the operating room table and placed in a right lateral position. The downside right axilla was padded. The downside right hip had a blanket underneath it to raise the pelvis towards the ceiling. The pelvis was secured over the ASIS and the sacrum with hip positioner and the downside leg was checked to see there was no pressure on the peroneal nerve at the fibular head and neck. The blankets were placed between the legs and the groin was sealed off. The left hip was given a preliminary chlorhexidine prep and then a formal ChloraPrep from the left hip to the foot and then carefully draped and sealed off in the usual fashion for left hip arthroplasty. We did our universal protocol time-out confirming Mercedes Hedrick and a plan for left hip arthroplasty. We all agreed and we proceeded. The left hip was approached with a curving posterolateral skin incision going from the greater trochanter distally for an inch and a half and curving proximally and posteriorly for 2.5 inches. The skin and subcu divided down to the deep fascia. Careful hemostasis was checked and achieved throughout the case utilizing electrocautery. The fascia megan was opened in line with the skin incision and the fascia over the gluteus skyler the same. The gluteus skyler was split bluntly and a Charnley retractor was inserted. The trochanteric bursa had some blood tinging from the femoral neck fracture. Careful posterior approach to the hip was done retracting the gluteus medius anteriorly with a blunt Hohmann retractor, and when we got a little deeper, the gluteus medius and minimus retracted anteriorly with a blunt Hohmann retractor. The piriformis and conjoint tendon were each marked with #2 Surgidac sutures and this suture also included the underlying capsular flap and these were repaired at the end of the case. Careful posterior approach was then done to the hip and the femoral neck fracture was exposed first. The femoral neck was marked approximately a fingerbreadth proximal to the lesser trochanter and divided and the fracture part of the neck was then removed. The femoral head was then secured with a corkscrew and it was removed. The acetabulum was cleaned medially with a curette. The labrum was debrided a little bit anteriorly, retraction in the acetabulum with a sharp Hohmann anteriorly and posteriorly, and blunt Hohmann superiorly and inferiorly. The acetabulum was reamed 40 through 46, and at 46, we had nice bleeding subchondral and cancellous bone. A 46 Continuum cup was impacted into position in 45 degrees of abduction, 20 degrees of anteversion, and a single screw was placed superiorly, an elevated liner was placed posteriorly. On the femoral side, we used a canal finder, trochanteric reamer. Broaching was done 4, 5, 6, and 7.5. With the 7.[address], we did a trial reduction with a reduced neck plus 0 head and this was tight. The final prosthesis was a reduced neck M/L taper size 7.5. It was impacted into position in approximately 15 to 20 degrees of anteversion and a -3.5, 28 mm cobalt- chrome head was then applied to the clean trunnion. The hip was reduced. There was a negative push-pull in extension, no tendency towards levering with IR, ER and extension. Flexion of 90 degrees allowed, adduction and IR of 30 to 40 degrees prior to dislocation. During closure, we checked and achieved hemostasis. We irrigated several times with saline and swabbed the soft tissues with clean lap sponges to remove debris. The piriformis and conjoint tendon were repaired at the posterosuperior greater trochanter through two drill holes. The fascia megan closed with interrupted #1 Polysorb in figure- of-eight fashion, fascia of the gluteus skyler closed with 0 Polysorb in figure -of-eight fashion and then in simple fashion. Deep and superficial subcu closed with 0 Polysorb and then the superficial subcu closed with 2-0 Polysorb inverted. The hip prosthesis was infiltrated with 15 mL of Marcaine 0.5% with epinephrine in the skin and subcu another 15 mL. The skin was closed with ritika. The skin was washed and dried and covered with Betadine-soaked release followed by sterile gauze, ABD pads, and then paper tape. The patient was returned to the hospital bed and to the recovery room in stable and satisfactory condition having tolerated the procedure very well. [id number]/CPS #: [id number] JORDAN
[2019-11-10] MEDS ORDERED: LORazepam INJ* 2 MG/ML 1 ML VIAL IV PUSH SCH (03:00)
[2019-11-10] MEDS ORDERED: Dexmedetomidine* 1,000 MCG in NS 0.9% 250 ML* 240 ML IV SCH (03:00)
[2019-11-10] MEDS ORDERED: Acetaminophen IV 1GM/100ML * 1,000 MG/100 ML VIAL IVPB ONE ×2 (03:13→09:13)
[2019-11-10] MEDS ORDERED: Succinylcholine* 20 MG/ML 10 ML VIAL ONE ×2 (03:46→03:50)
[2019-11-10] MEDS ORDERED: Etomidate* 2 MG/ML 20 ML VIAL (40 MG) ONE (03:50)
[2019-11-10] MEDS ORDERED: Propofol* 100 ML ONE (03:53)
--- NOTE | 2019-11-10 03:59 | PN ---
Hospitalist Progress Note Paged for agonal breathing. Pt has audible secretions in her airways, unable to be suctioned out. Her saturation is steadily dropping. CXR showed developing aspiration PNA in right lower lobe Called family multiple times to inform of change in clinical status but no response. She is full code at this time, intubated for airway protection.
[2019-11-10] MEDS ORDERED: Propofol* 100 ML IV SCH (04:00)
[2019-11-10] MEDS: Pantoprazole IV* 40 MG IV SCH (04:35)
[2019-11-10] MEDS: ceFAZolin 1 GM ADVAN(*) 1 GM in NS 0.9% 50 ML* 50 ML IVPB SCH ×2 (04:46→13:50)
[2019-11-10 05:10] LABS: ABS Lymphocytes 0.2 10^3/ul (1.0-4.8); ABS Monocytes 0.7 10^3/ul (0-0.8); Hematocrit 33 % (35-47); Hemoglobin 10.9 g/dL (12.0-16.0); Mean Corpuscular HGB Conc 34 g/dL (31-36); Mean Corpuscular Hemoglobin 33 pg (27-31); Mean Corpuscular Volume 98 fL (80-97); Mean Platelet Volume 10.1 fL (7.4-10.4); Nucleated Red Blood Cells % 0.1; Platelet Count 183 10^3/uL (150-450); Red Blood Count 3.32 10^6 /uL (3.70-4.87); Red Cell Distribution Width 13 % (10-15); White Blood Count 8.9 10^3/uL (3.5-10.8)
[2019-11-10 05:27] LABS: BUN/Creatinine Ratio 25.5 (8-20); Calcium 8.7 mg/dL (8.6-10.3); EGFR African American 59.5 (>60); EGFR Non-African American 49.2 (>60); Potassium 3.4 mmol/L (3.5-5.0)
--- NOTE | 2019-11-10 05:27 | PN ---
<Tiff Romeo - Last Filed: 11/10/19 06:12> Procedures - Sedation Patient Received Moderate/Deep Sedation with Procedure: No <ChapinKianna - Last Filed: 11/10/19 06:14> Progress Note - Progress Note Date of Service: 11/10/19 Attestations Scribe Attestation: Kianna Crawford, scribed for Tiff Romeo MD on 11/10/19 at 0613. Procedures - Sedation Patient Received Moderate/Deep Sedation with Procedure: No - Intubation Time of Intubation: 03:51 Intubation Method: orotracheal Tube Size (cm): 7.5 Medications: Succinylcholine - and etomidate Breath Sounds after Intubation: equal - bilaterally Intubation Complications: no complications Post Intubation Xray: Yes Progress/Xray Impression: Post intubation x-ray shows tube is above the chris - Attestation Statements Document Initiated by Scribe: Yes Documenting Scribe: Kianna Samson Provider For Whom Scribe is Documenting (Include Credential): Tiff Romeo MD Scribe Attestation: Kianna Crawford, scribed for Tiff Romeo MD on 11/10/19 at 0613. Status of Scribe Document: Ready
--- NOTE | 2019-11-10 09:27 | PN ---
Progress Note - Progress Note Date of Service: 11/10/19 Note: POD#1 VSStable and she is intubated due to resp. difficulties. X-ray left hip post op is satisfactory. All posture is good. No left swelling. Left hip is dry. We favor Heparin 5000 U q 12 h. Left PT pulse is 2 plus. Hct is 33%. K is 3.4, replacement given. Mobilize as soon as extubated. Leno Montaño MD.
[2019-11-10] MEDS: Chlorhexidine MOUTHWASH 0.12%* 15 ML UDC SWISH SPIT SCH ×3 (09:59→21:02)
[2019-11-10] MEDS: Heparin VIAL(*) 5000 UNITS/ML VIAL (FIVE THOUSAND) SUBCUT SCH (09:59)
[2019-11-10] MEDS: KCL 10 MEQ/50 ML IVPREMIX* 10 MEQ/50 ML BAG IV SCH ×3 (10:25→13:50)
--- NOTE | 2019-11-10 11:12 | PN ---
Date of Service: 11/10/19 Critical Care Services: The patient was intubated yesterday for desaturation and inability to protect her airway. Vital Signs: Temp Pulse Resp BP SpO2 FiO2 97.9 F 79 16 130/77 100 35 11/10/19 07:38 11/10/19 08:00 11/10/19 06:00 11/10/19 08:00 11/10/19 08:00 08:13 Physical Exam: Gen: intubated and sedated HEENT: nc/at perrla Lungs: cta b no wheezes and no rhonchi Cardiac: s1s2 rrr no murmurs and no rubs Abdomen: soft nt/nt bs+ Extremities: leg in supportive bind Left hip dressing Neuro: moves around off sedation Fluid Balance (Past 24 Hours): I= O= Net Intake & Output 11/08/19 11/09/19 11/10/19 11/11/19 06:59 06:59 06:59 06:59 Intake Total 200 2089 1355 Output Total 2775 875 175 Balance 200 -686 480 -175 Weight 92 lb 112 lb 12.8 oz 113 lb Intake: IV Fluids 200 1769 1234 BANANA BAG 200 789 LR 1100 NS 980 34 NS 100ML, Cefazolin 2G 100 IVPB 121 ABX - CEFAZOLIN 121 Oral 0 320 Output: Blanco 2775 875 175 Labs: Laboratory Results - last 24 hr 11/10/19 11/10/19 04:43 04:43 WBC 8.9 RBC 3.32 L Hgb 10.9 L Hct 33 L MCV 98 H MCH 33 H MCHC 34 RDW 13 Plt Count 183 MPV 10.1 Neut % (Auto) 90.1 Lymph % (Auto) 2.0 [place] % (Auto) 7.4 Eos % (Auto) 0.0 Baso % (Auto) 0.5 Absolute Neuts (auto) 8.0 H Absolute Lymphs (auto) 0.2 L Absolute Monos (auto) 0.7 Absolute Eos (auto) 0.0 Absolute Basos (auto) 0.0 Absolute Nucleated RBC 0.0 Nucleated RBC % 0.1 Sodium 136 Potassium 3.4 L Chloride 103 Carbon Dioxide 23 Anion Gap 10 BUN 27 H Creatinine 1.06 H Est GFR ( Amer) 59.5 Est GFR (Non-Af Amer) 49.2 BUN/Creatinine Ratio 25.5 H Glucose 184 H Calcium 8.7 Impression: Assessment: 1. S/p ventilator dependent respiratoy failure hypoxic second to somnolence post anesthesia 2. hx of tobacco abuse 3. Alcohol use 4. Essential htn 5. S/p Left hip surgery 6. DNR/DNI revoked at 1300 11/10/2019 at 1300 DNR will be reinstituted DNI waived till 1300 on 11/11/2019. 7. Acute kidney injury Plan: -patient intubated currently; we will stop sedation and attempt a spontaneous breathing trial and extubation; if fails reintubate till 1300 11/11/2019 -Tylenol for pain -LR at 50ml/hr started -thiamine folic acid and mvi to continue; ativan on as a prn basis -Heparin sub q for dvt ppx -potassium is replaced -spoke to son Gopi Hedrick; he was updated on the status of the patient. He want his mother to be re-intubated if necessary till 1300 on 11/11/2019. DNR will start at 1300 today 11/10/2019. Critical Care Time: The patient requires intensive medical decision making to prevent adverse outcomes. The ccm time is 32 minutes.
[2019-11-10] MEDS ORDERED: Lactated Ringers 1000 ML Bag* 500 ML IV ONE (12:00)
[2019-11-10] MEDS: amLODIPine TAB* 5 MG PO SCH (12:20)
[2019-11-10] MEDS: Folic Acid TAB* 1 MG PO SCH (12:20)
[2019-11-10] MEDS: FLUoxetine CAP* 20 MG PO SCH (12:20)
[2019-11-10] MEDS: Thiamine TAB* 100 MG TAB PO SCH (12:21)
[2019-11-10] MEDS: Multivitamins/Minerals TAB PO SCH (12:21)
[2019-11-10 14:31] LABS: TSH (Thyroid Stimulating Horm) 0.2 mcIU/mL (0.34-5.60)
[2019-11-10] MEDS ORDERED: traMADol TAB* 50 MG PO ONE (20:16)
[2019-11-10] MEDS: Nicotine PATCH 14 MG/24 HR* PATCH TRANSDERM SCH (20:34)
[2019-11-10] MEDS: hydrALAZINE IV* 20 MG/ML VIAL IV SLOW PU PRN (21:15)
[2019-11-10] MEDS ORDERED: fentaNYL* 50 MCG/ML 2 ML VIAL (100 MCG VIAL) IV SLOW PU ONE (21:30)
[2019-11-10] MEDS ORDERED: Acetaminophen IV 1GM/100ML * 100 ML IVPB SCH (22:00)
[2019-11-10] MEDS ORDERED: Haloperidol INJ IV/IM* 5 MG/ML AMP IM ONE (22:16)
[2019-11-11] MEDS ORDERED: Dexmedetomidine* 1,000 MCG in NS 0.9% 250 ML* 240 ML IV SCH (00:30)
[2019-11-11] MEDS: Heparin VIAL(*) 5000 UNITS/ML VIAL (FIVE THOUSAND) SUBCUT SCH ×3 (01:02→21:00)
[2019-11-11] MEDS: Acetaminophen IV 1GM/100ML * 100 ML IVPB SCH ×3 (01:02→15:41)
[2019-11-11] MEDS: hydrALAZINE IV* 20 MG/ML VIAL IV SLOW PU PRN (03:11)
[2019-11-11 03:27] LABS: ABS Basophils 0.1 10^3/ul (0-0.2); ABS Lymphocytes 0.5 10^3/ul (1.0-4.8); ABS Monocytes 0.7 10^3/ul (0-0.8); ABS Neutrophils 6.5 10^3/ul (1.5-7.7); Hematocrit 28 % (35-47); Hemoglobin 9.6 g/dL (12.0-16.0); Lymphocyte % 6.5 %; Mean Corpuscular HGB Conc 34 g/dL (31-36); Mean Corpuscular Hemoglobin 33 pg (27-31); Mean Corpuscular Volume 97 fL (80-97); Mean Platelet Volume 10.3 fL (7.4-10.4); Nucleated Red Blood Cells % 0.1; Platelet Count 181 10^3/uL (150-450); Red Blood Count 2.91 10^6 /uL (3.70-4.87); Red Cell Distribution Width 13 % (10-15); White Blood Count 7.8 10^3/uL (3.5-10.8)
[2019-11-11 03:44] LABS: Albumin 3.6 g/dL (3.2-5.2); Albumin/Globulin Ratio 1.4 (1-3); Calcium 9.1 mg/dL (8.6-10.3); EGFR African American 63.6 (>60); EGFR Non-African American 52.6 (>60); Globulin 2.5 g/dL (2-4); Magnesium 1.9 mg/dL (1.9-2.7); Phosphorus 1.8 mg/dL (2.5-5.0); Potassium 3.4 mmol/L (3.5-5.0); Total Bilirubin 0.4 mg/dL (0.2-1.0); Total Protein 6.1 g/dL (6.4-8.9)
--- NOTE | 2019-11-11 10:30 | PN ---
Progress Note - Progress Note Date of Service: 11/11/19 SOAP: Subjective: Pt seen and examined sitting in chair. Doing well. Extubated but confused. Denies CP, SOB. Vital Signs: Temp Pulse Resp BP Pulse Ox 100 F 100 20 136/71 98 11/11/19 04:00 11/11/19 06:30 11/11/19 06:30 11/11/19 06:00 11/11/19 06:30 Laboratory Last Values WBC 7.8 10^3/uL (3.5-10.8) 11/11/19 03:18 RBC 2.91 10^6 /uL (3.70-4.87) L 11/11/19 03:18 Hgb 9.6 g/dL (12.0-16.0) L 11/11/19 03:18 Hct 28 % (35-47) L 11/11/19 03:18 MCV 97 fL (80-97) 11/11/19 03:18 MCH 33 pg (27-31) H 11/11/19 03:18 MCHC 34 g/dL (31-36) 11/11/19 03:18 RDW 13 % (10-15) 11/11/19 03:18 Plt Count 181 10^3/uL (150-450) 11/11/19 03:18 MPV 10.3 fL (7.4-10.4) 11/11/19 03:18 Neut % (Auto) 83.6 % 11/11/19 03:18 Lymph % (Auto) 6.5 % 11/11/19 03:18 [place] % (Auto) 9.2 % 11/11/19 03:18 Eos % (Auto) 0.0 % 11/11/19 03:18 Baso % (Auto) 0.7 % 11/11/19 03:18 Absolute Neuts (auto) 6.5 10^3/ul (1.5-7.7) 11/11/19 03:18 Absolute Lymphs (auto) 0.5 10^3/ul (1.0-4.8) L 11/11/19 03:18 Absolute Monos (auto) 0.7 10^3/ul (0-0.8) 11/11/19 03:18 Absolute Eos (auto) 0.0 10^3/ul (0-0.6) 11/11/19 03:18 Absolute Basos (auto) 0.1 10^3/ul (0-0.2) 11/11/19 03:18 Absolute Nucleated RBC 0.0 10^3/ul 11/11/19 03:18 Nucleated RBC % 0.1 11/11/19 03:18 INR (Anticoag Therapy) 0.97 (0.82-1.09) 11/08/19 19:32 APTT 43.8 seconds (26.0-38.0) H 11/08/19 19:32 Sodium 139 mmol/L (135-145) 11/11/19 03:18 Potassium 3.4 mmol/L (3.5-5.0) L 11/11/19 03:18 Chloride 107 mmol/L (101-111) 11/11/19 03:18 Carbon Dioxide 23 mmol/L (22-32) 11/11/19 03:18 Anion Gap 9 mmol/L (2-11) 11/11/19 03:18 BUN 29 mg/dL (6-24) H 11/11/19 03:18 Creatinine 1.00 mg/dL (0.51-0.95) H 11/11/19 03:18 Est GFR ( Amer) 63.6 (>60) 11/11/19 03:18 Est GFR (Non-Af Amer) 52.6 (>60) 11/11/19 03:18 BUN/Creatinine Ratio 29.0 (8-20) H 11/11/19 03:18 Glucose 120 mg/dL (70-100) H 11/11/19 03:18 Calcium 9.1 mg/dL (8.6-10.3) 11/11/19 03:18 Phosphorus 1.8 mg/dL (2.5-5.0) L 11/11/19 03:18 Magnesium 1.9 mg/dL (1.9-2.7) 11/11/19 03:18 Total Bilirubin 0.40 mg/dL (0.2-1.0) 11/11/19 03:18 AST 40 U/L (13-39) H 11/11/19 03:18 ALT 18 U/L (7-52) 11/11/19 03:18 Alkaline Phosphatase 69 U/L (34-104) 11/11/19 03:18 Ammonia 45 mcmol/L (16-53) 11/10/19 13:45 Total Creatine Kinase 69 U/L (10-223) 11/08/19 01:50 C-Reactive Protein < 1.00 mg/L (<8.01) 11/08/19 01:50 Total Protein 6.1 g/dL (6.4-8.9) L 11/11/19 03:18 Albumin 3.6 g/dL (3.2-5.2) 11/11/19 03:18 Globulin 2.5 g/dL (2-4) 11/11/19 03:18 Albumin/Globulin Ratio 1.4 (1-3) 11/11/19 03:18 TSH 0.20 mcIU/mL (0.34-5.60) L 11/10/19 04:43 Urine Color Straw 11/08/19 03:23 Urine Appearance Clear 11/08/19 03:23 Urine pH 6.0 (5-9) 11/08/19 03:23 Ur Specific [place] 1.011 (1.010-1.030) 11/08/19 03:23 Urine Protein Negative (Negative) 11/08/19 03:23 Urine Ketones Negative (Negative) 11/08/19 03:23 Urine Blood Negative (Negative) 11/08/19 03:23 Urine Nitrate Negative (Negative) 11/08/19 03:23 Urine Bilirubin Negative (Negative) 11/08/19 03:23 Urine Urobilinogen Negative (Negative) 11/08/19 03:23 Ur Leukocyte Esterase Negative (Negative) 11/08/19 03:23 Urine Glucose Negative (Negative) 11/08/19 03:23 Blood Type O Positive 11/09/19 04:45 Antibody Screen Negative 11/09/19 04:45 Objective: Awake, NAD Dressing changed, Incision C/D/I, Calves soft and nontender, NVI distally. Assessment: s/p left total hip replacement POD #2 Plan: OOB, PT/OT WBAT Pain control DVT prophylaxis - Heparin Will transfer from ICU to [facility] today.
[2019-11-11] MEDS: Thiamine TAB* 100 MG TAB PO SCH (13:23)
[2019-11-11] MEDS: Multivitamins/Minerals TAB PO SCH (13:23)
[2019-11-11] MEDS: FLUoxetine CAP* 20 MG PO SCH (13:23)
[2019-11-11] MEDS: amLODIPine TAB* 5 MG PO SCH (13:23)
[2019-11-11] MEDS: Pantoprazole IV* 40 MG IV SCH (13:23)
[2019-11-11] MEDS: Folic Acid TAB* 1 MG PO SCH (13:23)
[2019-11-11] MEDS: Acetaminophen TAB* 325 MG PO PRN ×2 (13:24→20:57)
[2019-11-11] MEDS: Nicotine PATCH 14 MG/24 HR* PATCH TRANSDERM SCH (13:34)
[2019-11-11] MEDS ORDERED: traMADol TAB* 50 MG PO PRN (14:14)
[2019-11-11 15:15] LABS: BUN/Creatinine Ratio 29.6 (8-20); Calcium 9.5 mg/dL (8.6-10.3); EGFR African American 58.2 (>60); EGFR Non-African American 48.1 (>60); Potassium 3.3 mmol/L (3.5-5.0)
[2019-11-11] MEDS ORDERED: BIOFREEZE TOPICAL SCH ×2 (18:00→21:00)
[2019-11-12 05:30] LABS: ABS Lymphocytes 0.7 10^3/ul (1.0-4.8); ABS Monocytes 0.7 10^3/ul (0-0.8); ABS Neutrophils 5.5 10^3/ul (1.5-7.7); Eosinophil % 0.7 %; Hematocrit 28 % (35-47); Hemoglobin 9.4 g/dL (12.0-16.0); Lymphocyte % 10.5 %; Mean Corpuscular HGB Conc 33 g/dL (31-36); Mean Corpuscular Hemoglobin 32 pg (27-31); Mean Corpuscular Volume 97 fL (80-97); Platelet Count 205 10^3/uL (150-450); Red Blood Count 2.92 10^6 /uL (3.70-4.87); Red Cell Distribution Width 14 % (10-15)
[2019-11-12 05:44] LABS: BUN/Creatinine Ratio 32.6 (8-20); EGFR African American 72.8 (>60); EGFR Non-African American 60.1 (>60); Potassium 3.1 mmol/L (3.5-5.0)
[2019-11-12] MEDS ORDERED: Potassium Chloride* LIQUID 20 MEQ/15 ML UDC PO ONE (07:04)
[2019-11-12 07:53] VITALS: BP 155/71
[2019-11-12] MEDS ORDERED: Enoxaparin(*) 40 MG/0.4 ML SYR SUBCUT SCH ×2 (08:00→08:07)
--- NOTE | 2019-11-12 08:13 | PN ---
Progress Note - Progress Note Date of Service: 11/12/19 Note: POD#3 100.4, pulse 90-100. Awake, cooperative, and breathing easily. Hct is 28%, K is 3.1. She lifts her arms and does all exercises for the left hip and ankles. Imp: Stable. Plans: Mobilize per THR protocol and arrange disposition. Acute blood loss anemia and possible chronic anemia.
[2019-11-12] MEDS ORDERED: Enoxaparin(*) 30 MG/0.3 ML SYR SUBCUT SCH (09:00)
[2019-11-12] MEDS ORDERED: amLODIPine TAB* 5 MG PO SCH (09:00)
--- NOTE | 2019-11-12 10:11 | PN ---
Progress Note - Progress Note Date of Service: 11/12/19 SOAP: Subjective: []Pt seen OOB in chair today, hip pain well controlled. Denies CP, SOB, dizziness, nausea. Objective: []Gen: NAD LLE: Dressing changed, incision CDI, thigh soft, DF/PF intact, DP2+, sensation intact to light touch distally Calves supple and nontender without erythema,e dmea or palpable cords Assessment: [] SP LTH Plan: [] WBAT Posterior hip precautions DC to PMRU lovenox 30 mg sq qd x 30 days post op
[2019-11-12] MEDS ORDERED: Simethicone TAB* 80 MG TAB.CHEW PO ONE (10:19)
[2019-11-12] MEDS: FLUoxetine CAP* 20 MG PO SCH (10:21)
[2019-11-12] MEDS: Thiamine TAB* 100 MG TAB PO SCH (10:21)
[2019-11-12] MEDS: Multivitamins/Minerals TAB PO SCH (10:21)
[2019-11-12] MEDS: Folic Acid TAB* 1 MG PO SCH (10:21)
[2019-11-12] MEDS: Nicotine PATCH 14 MG/24 HR* PATCH TRANSDERM SCH (10:22)
[2019-11-12] MEDS: Pantoprazole IV* 40 MG IV SCH (10:25)
[2019-11-12] MEDS: Ondansetron INJ* 2 MG/ML VIAL IV PRN (10:40)
--- NOTE | 2019-11-12 23:17 | DS ---
CC: Dr. Daphne Reyes * DISCHARGE SUMMARY: DATE OF ADMISSION: 11/08/19 DATE OF DISCHARGE: 11/12/19 PRIMARY CARE PROVIDER: Dr. Daphne Reyes. MY ATTENDING WHILE IN THE HOSPITAL: Dr. Rashawn Donald.* (DICTATED BY SUSI SHAHID) PRIMARY DISCHARGE DIAGNOSES: 1. Left hip fracture, status post left total hip arthroplasty. 2. Hypertensive urgency, resolved. 3. Hypoxic respiratory failure requiring brief intubation postoperatively. SECONDARY DISCHARGE DIAGNOSES: 1. Depression. 2. Diverticulosis. STUDIES DONE WHILE IN THE HOSPITAL: Femur x-ray from 11/08/19 read as displaced left subcapital femoral neck fracture. Lumbar spine CT from 11/08/19 read as no spine traumatic abnormalities, mild osteomyelitis, mild arthropathy causing mild C3-C4 canal stenosis, Bosniak type 1 renal cyst, no followup indicated. Pelvic CT from 11/08/19 read as acute traumatic left femoral neck fracture. Pelvis x-ray from 11/09/19 read as left complete hip replacement in place with normal alignment in the LP projection with full assessment requiring orthogonal view. No periprosthetic fracture evident in AP view, lateral cutaneous ritika and typical overlying soft tissue edema and subcutaneous emphysema. Chest x-ray from 11/10/19 shows appropriate placement of endotracheal tube with the tip terminating about the level of the clavicles. Repeat chest x-ray read as appropriately positioned endotracheal tube. MEDICATIONS AT DISCHARGE: 1. Fluoxetine 60 mg p.o. daily. 2. Tylenol 650 mg p.o. q.4 hours as needed. 3. Amlodipine 10 mg p.o. daily. 4. Lovenox 30 mg subcutaneous daily. 5. Folic acid 1 mg p.o. daily. 6. Multivitamin 1 tab p.o. daily. 7. Nicotine patch 14 mg for 24 hours, transdermal daily. 8. Thiamine 100 mg p.o. daily. 9. Tramadol 50 mg p.o. q.6 hours. New medications on discharge: 1. Tylenol. 2. Amlodipine. 3. Lovenox. 4. Folic acid. 5. Multivitamin. 6. Nicotine patch. 7. Thiamine. 8. Tramadol. Medications discontinued on discharge: None. HOSPITAL COURSE: This is a brief summary of the patient's presentation. For more details, please see the history and physical from Eddie Palmer NP on . In brief, the patient is an 84-year-old female with past medical history significant for the above and also has a history of tobacco and alcohol abuse, who had a mechanical fall on the day of her admission where she lost her balance after leaning forward on her left side. Had no loss of consciousness. No chest pain. No head trauma. Had been feeling well prior to this. The patient was admitted to the hospital. The patient had severe hypertension initially, treated with amlodipine and hydralazine to good affect. The patient was seen in consultation by Dr. Leno Montaño and a total hip arthroplasty was planned for 11/09/19. Postoperatively, the patient was obtunded requiring a nasal trumpet. The patient was transferred to the ICU. The patient's DNR was briefly rescinded. The patient was intubated by Dr. Linda Gaffney on . The patient tolerated the intubation well. The patient on 11/10/19 was able to be extubated and was resumed doing well postoperatively. The patient will be transferred out of the ICU. The patient initially was found to be mildly anemic which worsened slightly without any compromise after surgery. The patient had elevated glucose levels while inpatient, but a hemoglobin A1c was not drawn. The patient also had decreased TSH at 0.2 but additionally TFTs were not ordered. The patient was accepted to [facility] for rehab on 11/12/19 after she was transferred out of the ICU and was transferred to [facility] on 11/12/19 for continued rehab. PHYSICAL EXAMINATION ON THE DATE OF DISCHARGE: General: The patient is an 84- year- old female who appears stated age, sitting comfortably in bed, in no acute distress. Vital Signs: At the time of evaluation, temperature 97.6, pulse rate 99, respiratory rate 16, oxygen saturation 96% on room air, blood pressure 155/71. HEENT: Head normocephalic, atraumatic. Sclerae anicteric. No conjunctival injection. Nasal mucosa moist. Oral mucosa moist. No oropharyngeal erythema, discharge, or exudate. Neck: Supple, nontender. No lymphadenopathy. No carotid bruits auscultated. No JVD. Cardiac: Regular rate and rhythm. No clicks, murmurs, gallops, or rubs. Pulses are 2+ in the dorsalis pedis, posterior tibialis, and radial areas. Respiratory: Clear to auscultation bilaterally. No wheezes or rhonchi. Good air exchange bilaterally. Abdomen: Soft, nontender, nondistended. Bowel sounds present and normoactive in all 4 quadrants. No hepatosplenomegaly. No abdominal bruits auscultated. No hepatojugular reflux. Genitourinary: No suprapubic or CVA tenderness. Skin: Left side hip incision covered, not visualized. Neuro: Cranial nerves II through XII intact. No focal deficits. Alert and oriented x3. Psychiatric: Pleasant and cooperative. DISCHARGE PLAN BY PROBLEM: 1. Fall with left hip fracture, status post total hip arthroplasty. The patient is doing well postoperatively. She recovered well from anesthesia after her requiring a brief ICU stay and intubation. However, she appears to have had no ongoing ill effects from this. The patient is currently saturating well on room air. The patient will continue with PT/OT, pain medication, and Lovenox for DVT prophylaxis postoperatively at 30 mg subcutaneous for 30 days. This was started on 11/11/19. 2. Hypertension. The patient was markedly hypertensive on admission. This was a chronic finding. The patient has been started on amlodipine with good response in her blood pressure. This dose was most recently escalated on and her blood pressure should be monitored while she is in rehab. 3. Hyperglycemia. The patient's was hyperglycemic throughout her stay, but no hemoglobin A1c was ordered. It is possible it is related to stress reaction; however, no hemoglobin A1c is available at this time. The patient should have routine screening for diabetes per routine protocol. 4. Depression. Continue the patient's Prozac. 5. History of alcohol abuse, tobacco abuse. Continue the patient's folic acid , thiamine, and nicotine replacement. TIME SPENT: Approximately half an hour was spent on the discharge of this patient, 15 minutes of which was spent [id number] with the patient obtaining history and physical and discussing treatment plan. SUSI SHAHID [id number]/CPS #: [id number] MTDKate
== END 2019-11-12 11:20 | DRG 469 ==
LOC: ED 00:40 → SSU 03:02 → ICU 11-09 18:10 → SSU 11-11 12:00
PROVIDERS: ADMIT Nurse Practitioner Family; ATTEND Internal Medicine
PROC: 0BH17EZ Insertion of Endotracheal Airway into Trachea, Via Natural or Artificial Opening (ICD-10-PCS; 2019-11-09)
PROC: 5A1945Z Respiratory Ventilation, 24-96 Consecutive Hours (ICD-10-PCS; 2019-11-09)
PROC: 0SRB02A Replacement of Left Hip Joint with Metal on Polyethylene Synthetic Substitute, Uncemented, Open Approach (ICD-10-PCS; principal; 2019-11-09 13:00)
DX: S72.012A Unspecified intracapsular fracture of left femur, initial encounter for closed fracture (principal); J95.821 Acute postprocedural respiratory failure; J69.0 Pneumonitis due to inhalation of food and vomit; D62 Acute posthemorrhagic anemia; N17.9 Acute kidney failure, unspecified; W18.30XA Fall on same level, unspecified, initial encounter; F32.9 Major depressive disorder, single episode, unspecified; I16.0 Hypertensive urgency; K57.90 Diverticulosis of intestine, part unspecified, without perforation or abscess without bleeding; R73.9 Hyperglycemia, unspecified; F17.210 Nicotine dependence, cigarettes, uncomplicated; F10.20 Alcohol dependence, uncomplicated; D53.9 Nutritional anemia, unspecified; M51.36 Other intervertebral disc degeneration, lumbar region; M47.9 Spondylosis, unspecified; Y92.9 Unspecified place or not applicable; Z81.8 Family history of other mental and behavioral disorders; Z79.899 Other long term (current) drug therapy
CPT/HCPCS: 36415; 71045; 72131; 72170; 72192; 80048; 80053; 81003; 82140; 82550; 82565; 83735; 84100; 84443; 84520; 85025; 85610; 85730; 86140; 86850; 86900; 86901; 87641; 88305; 88311; 93005; 94002; 94660; 96374; 96375; 99284; A9270-GY; C1713; C1776; J0330; J0360; J0690; J1100; J1170; J1630; J1644; J1650; J2060; J2270; J2405; J2704; J3010; J3411; J3480; J3490

== ENCOUNTER 2019-11-12 10:57 | Inpatient (IN) | payer MEDICARE ==
[2019-11-12] MEDS ORDERED: Senna TAB 8.6 mg* TAB PO PRN (12:08)
[2019-11-12] MEDS ORDERED: Magnesium Hydroxide LIQ* 30 ML UDC PO PRN (12:08)
[2019-11-12] MEDS ORDERED: Ondansetron ODT TAB* 4 MG PO PRN (12:16)
[2019-11-12] MEDS ORDERED: traMADol TAB* 50 MG PO PRN (12:16)
--- NOTE | 2019-11-12 19:57 | HP ---
ADMISSION HISTORY AND PHYSICAL: DATE OF ADMISSION: 11/12/19 REASON FOR ADMISSION: Left hip fracture, status post left total hip replacement. HISTORY OF PRESENT ILLNESS: Mercedes Hedrick is an 84-year-old female. She smokes a pack of cigarettes a day and also has 2 alcoholic beverages a week. 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 She was able to crawl to the phone and call a friend for help. The friend called 911 and she was brought to [facility] Emergency Room. In the emergency room, she had x-rays taken of her left femur and pelvis. She was found to have a displaced left subcapital femoral neck fracture. She was admitted to the hospital. She had an orthopedic consultation later that day. The patient was taken to the operating room on 11/09/19 and underwent a left total hip replacement. Postoperatively, the patient was observed in the PACU and then the intensive care unit and had to be reintubated. She was intubated for 8 hours before extubation. After extubation , the patient seemed to be doing okay. She was little confused immediately after extubation, but seemed better by the next day. She was felt to have physical therapy and occupational therapy needs. She is now being admitted for inpatient rehab. PAST MEDICAL HISTORY: Significant for COPD. In addition, she has a history of depression and diverticular disease. CURRENT MEDICATIONS: Include: 1. Norvasc. 2. Lovenox for DVT prophylaxis. 3. Prozac. 4. Some nicotine patch. 5. Protonix. 6. Tramadol. 7. Tylenol. ALLERGIES: The patient has no known drug allergies. FAMILY HISTORY: Noncontributory. SOCIAL HISTORY: She lives by herself in a 2-vince house in [place]. The patient does have a son, Gopi, who lives on a different level of the house. REVIEW OF SYSTEMS: The patient reports no current shortness of breath or chest pain. PHYSICAL EXAMINATION VITAL SIGNS: The patient's temperature is 98.0, blood pressure is 150/53, pulse is 96, respirations 20. HEENT: Her extraocular movements are intact. NECK: Supple. LUNGS: Sound clear to auscultation bilaterally. HEART: Sounds were regular. S1, S2 audible. ABDOMEN: Soft and nontender. EXTREMITIES: Her left hip has a wound, which is clean and dry and intact. Her peripheral pulses are intact. NEUROLOGIC: The patient is awake, alert, oriented. Muscle strength seems to be about 5/5 except the left leg, which is about 3-4/5 secondary to pain. FUNCTIONAL EXAM: She transfers with mini assist. ASSESSMENT: Left hip fracture, status post left total hip replacement. PLAN/RECOMMENDATIONS: Integrate her into a comprehensive and therapeutic rehab program. We will have the following goals: 1. Physical Therapy will work with the patient. They are going to work on functional transfer training, ambulation training with a walker. 2. Occupational Therapy will see the patient, work on her activities of daily living including toileting and toilet transfers. 3. Lovenox for DVT prophylaxis. 4. Adequate analgesia without confusing her. 5. Her bowels will be regulated. 6. marketing services manager will be closely involved to make sure that any services and equipment the patient requires are in place prior to discharge. 7. Continue nicotine patch for nicotine addiction. 8. Continue Norvasc for hypertension. 9. Home with appropriate services. ESTIMATED LENGTH OF STAY: 7 to 10 days. [id number]/CPS #: [id number] JORDAN
[2019-11-12] MEDS: Potassium Chlor TAB* 20 MEQ TAB.ER PO SCH (21:33)
[2019-11-12] MEDS: Docusate CAP* 100 MG PO SCH (21:34)
[2019-11-12] MEDS: Simethicone TAB* 80 MG TAB.CHEW PO PRN (21:34)
[2019-11-12] MEDS: Nicotine Patch Removal NOTE FOLLOW UP SCH (21:57)
[2019-11-13] MEDS: FLUoxetine CAP* 20 MG PO SCH (08:18)
[2019-11-13] MEDS: amLODIPine TAB* 5 MG PO SCH (08:19)
[2019-11-13] MEDS: Potassium Chlor TAB* 20 MEQ TAB.ER PO SCH ×2 (08:19→21:05)
[2019-11-13] MEDS: Docusate CAP* 100 MG PO SCH ×2 (08:19→21:05)
[2019-11-13] MEDS: Pantoprazole TAB * 40 MG TAB PO SCH (08:19)
[2019-11-13] MEDS: Folic Acid TAB* 1 MG PO SCH (08:19)
[2019-11-13] MEDS: Thiamine TAB* 100 MG TAB PO SCH (08:20)
[2019-11-13] MEDS: Nicotine PATCH 14 MG/24 HR* PATCH TRANSDERM SCH (08:21)
[2019-11-13] MEDS: Enoxaparin(*) 30 MG/0.3 ML SYR SUBCUT SCH (08:21)
[2019-11-13] MEDS: Acetaminophen TAB* 325 MG PO PRN (08:47)
--- NOTE | 2019-11-13 12:37 | PMRUTEAM ---
PMRU: Team Meeting Current Status: Occupational Therapy: Current Status Current Upper Body Dressing Setup or Clean-up Assist Status Current Lower Body Dressing Substantial/Maximal Status Current Footwear Status Dependent Current Bathing Status Substantial/Maximal Current Grooming Status Setup or Clean-up Assist Current Toileting Status Substantial/Maximal Current Toilet Transfer Status Dependent Current Eating Status Independent Nursing: Current Status Skin Deviations [Left Hip] Incision Skin Deviation Description [ dressing dry and intact Left Hip] Bladder Current Status dependent Bowel Current Status dependent Nutrition Current Status eat about 30% of meals Medication Current Status dependent Rec Therapy: Current Status Summary of Assessment and Will introduce Recreation Therapy services today 3 Clinical Impression /11/2019 Nutrition: Current Status Monitoring full nutrition assessment planned today. PO intake has only been 15-30% of meals. Pt also w/ low BMI. Ebcourage po intake. PHYSICAL THERAPY: CURRENT STATUS: Min Assist of 2 for transfers, supervision bed mobility, ambulates 25 feet with FWW and gait belt, min assist x 2, up 3 steps CG with 2 rails. Goals: Physical Therapy: Goals Ambulation Assistive Devices Rolling Walker Stairs Recommended Devices Two Rails Number of Stairs 3 Occupational Therapy: Goals Goals to be Completed in (Days 7-10 days ) Goal Upper Body Dressing Independent Routine Goal Lower Body Dressing Supervision/Touching Routine Goal Footwear Status Independent Goal Bathing Routine (OT) Supervision/Touching Goal Grooming Routine Independent Goal Toilet Hygiene and Independent Clothing Management Routine Goal Toilet Transfer Routine Independent Goal Functional Transfers for Independent ADL Goal Feeding Routine Independent Goal Light Housekeeping Tasks Partial/Moderate Nutrition: Goals Intervention Goals 1. adequate intake to support hydration and lean body mass without wt loss - ultimately, promote gradual wt gain 10-15# 2. maintain serum electrolytes WNL 3. regulation of bowel pattern; no c/o constipation (or diarrhea) Nursing: Goals Bladder Goal independent Bowel Goal independent Nutrition Goal eat 100% of meals Medication Goal independent Care Plan: Care Plan DVT Prophylaxis- Improve/Maintain Start: 11/12/19 21:58 Freq: DAILY@0700,1900 Status: Active Target: 11/19/19 Protocol: Activity Type Activity Date Activity User E-Sign Co-Sign Detail Recorded Client Recorded Date Recorded By Document 11/13/19 01:14 [id number] 11/13/19 01:15 [id number] 11/13/19 01:14 PMRU Outcome: DVT Prophylaxis Current DVT Outcome/Goals Remains Free of DVT Complies with DVT Prophylaxis /Treatment Demonstrates Knowledge of DVT Prevention/ Treatment Progression Toward Outcome/Goals Progressing Discharge Planning - Improve/Maintain Start: 11/12/19 21:58 Freq: DAILY@0700,0 Status: Active Target: 11/19/19 Protocol: Activity Type Activity Date Activity User E-Sign Co-Sign Detail Recorded Client Recorded Date Recorded By Document 11/13/19 01:14 [id number] 11/13/19 01:15 [id number] 11/13/19 01:14 PMRU Outcome: Discharge Planning Update Patient Family No Current Discharge Planning Outcome/Goals Demonstrates Understanding of Discharge Plan Homecare Referral - See Comment Progression Toward Outcome/Goals Progressing Education-Improve/Maintain Start: 11/12/19 21:58 Freq: DAILY@699,1899 Status: Active Target: 11/19/19 Protocol: Activity Type Activity Date Activity User E-Sign Co-Sign Detail Recorded Client Recorded Date Recorded By Document 11/13/19 01:14 [id number] 11/13/19 01:15 [id number] 11/13/19 01:14 PMRU Outcome: Education Current Education Outcome/Goals Demonstrate/ Verbalize Understanding of Written Discharge Instructions Demonstrates Skills Encourage Questions Progression Toward Outcome/Goals Progressing /GI-Improve/Maintain Start: 11/12/19 21:58 Freq: DAILY@699,1899 Status: Active Target: 11/19/19 Protocol: Activity Type Activity Date Activity User E-Sign Co-Sign Detail Recorded Client Recorded Date Recorded By Document 11/13/19 01:14 [id number] 11/13/19 01:15 [id number] 11/13/19 01:14 PMRU Outcome: Genitourinary/ Gastrointestinal Current Gastrointestinal Outcome/Goals Maintain/ Achieve Bowel Regularity in Accordance with Pt's Baseline Prevent Constipation Laxatives as Ordered Progression Toward Outcome/Goals Progressing Current Genitourinary Outcome/Goals Maintain/ Achieve Urinary Continence Maintain/ Achieve Adequate Urinary Output Remain Free of Hospital- Acquired UTI Progression Toward Outcome/Goals Progressing Outcome/Goals Met Comment pt up to commode Medication Administration Start: 11/12/19 21:58 Freq: DAILY@0700,1900 Status: Active Target: 11/19/19 Protocol: Activity Type Activity Date Activity User E-Sign Co-Sign Detail Recorded Client Recorded Date Recorded By Document 11/13/19 01:14 [id number] 11/13/19 01:15 [id number] 11/13/19 01:14 PMRU Outcome: Medication Administration Assess Patient Knowledge/Teach Med No Education for all Meds Current Bridge Painter Outcome/Goals Patient Independent with Medication Administration at Home Demonstrates Understanding Progression Towards Outcome/Goals Progressing Is Patient Going Home on Lovenox? No Pain/Comfort- Improve/Maintain Start: 11/12/19 21:58 Freq: DAILY@0700,1900 Status: Active Target: 11/19/19 Protocol: Activity Type Activity Date Activity User E-Sign Co-Sign Detail Recorded Client Recorded Date Recorded By Document 11/13/19 01:14 [id number] 11/13/19 01:15 [id number] 11/13/19 01:14 PMRU Outcome: Pain/Comfort Current Pain/Comfort Outcome/Goals Demonstrates Knowledge and Use of Available Comfort Measures Achieves Acceptable Comfort/Pain Level as Determined by Patient/Condit Maintain Comfort Level Allowing Patient to Fully Participate in Rehab Progression Toward Outcome/Goals Progressing Outcome/Goals Met Comment pt declined pain medication , warm pack placed for abd gas pain Safety- Improve/Maintain Start: 11/12/19 12:06 Freq: DAILY@0700,1900 Status: Active Target: 11/19/19 Protocol: Activity Type Activity Date Activity User E-Sign Co-Sign Detail Recorded Client Recorded Date Recorded By Document 11/13/19 01:14 [id number] 11/13/19 01:15 [id number] 11/13/19 01:14 PMRU Outcome: Safety Current Safety Outcome/Goals Remain Free of Injury or Harm Cooperates with Safety Measures for Least Restrictive Environment Prevent Falls/ Injury Progression Toward Outcome/Goals Goal Initiation Outcome/Goals Met Comment BA armed Skin- Improve/Maintain Start: 11/12/19 21:58 Freq: DAILY@0700,1900 Status: Active Target: 11/19/19 Protocol: Activity Type Activity Date Activity User E-Sign Co-Sign Detail Recorded Client Recorded Date Recorded By Document 11/13/19 01:14 [id number] 11/13/19 01:15 [id number] 11/13/19 01:14 PMRU Outcome: Skin Skin Risk Level Mild Risk Current Skin Outcome/Goals Maintain/ Improve Skin Integrity Surgical Incisions Healing Progression Toward Outcome/Goals Goal Initiation - Interdisciplinary Staff Present Shipping Lead Person/Social Work Staff Present: Haley Ceballos LMSW Nursing Staff Present: Kevin Newton RN OT Staff Present: Diamond Fallon PT Staff Present: Cecilia Shah Rec Therapy Staff Present: Kathryn Mata HANDKERCHIEF CUTTER Staff Present: Ralph Amador Medicine Note: Length of Stay: 10 days Anticipated Discharge Destination: home Tentative Discharge Date: November 23 2019 Discharged to: Home
--- NOTE | 2019-11-13 17:56 | PN ---
Progress Note Date of Service: 11/13/19 Note: DONELL KOHLI was visited. Therapy notes read and reviewed. She was discussed in interdisciplinary team rounds. She has a bit of pain in hip but not much. She is feeling better but not eating much Current Medications: Active Medications Generic Name Dose Route Start Last Admin Trade Name Freq PRN Reason Stop Dose Admin Acetaminophen 650 mg 11/12/19 12:08 11/13/19 08:47 Tylenol Tab* PO 650 mg Q6H PRN Administration MILD PAIN or TEMP > 100.4 Amlodipine Besylate 10 mg 11/13/19 09:00 11/13/19 08:19 Norvasc Tab* PO 10 mg DAILY PRINCESS Administration Docusate Sodium 100 mg 11/12/19 21:00 11/13/19 08:19 Colace Cap* PO 100 mg BID PRINCESS Administration Enoxaparin Sodium 30 mg 11/13/19 09:00 11/13/19 08:21 Lovenox(*) SUBCUT 30 mg Q24H PRINCESS Administration Fluoxetine HCl 60 mg 11/13/19 09:00 11/13/19 08:18 Prozac Cap* PO 60 mg DAILY PRINCESS Administration Folic Acid 1 mg 11/13/19 09:00 11/13/19 08:19 Folvite Tab* PO 1 mg DAILY PRINCESS Administration Magnesium Hydroxide 30 ml 11/12/19 12:08 Milk Of Magnesia Liq* PO Q6H PRN CONSTIPATION Nicotine 1 patch 11/13/19 08:00 11/13/19 08:21 Nicotine Patch 14 Mg/24 Hr* TRANSDERM 1 patch 0800 PRINCESS Administration Ondansetron HCl 4 mg 11/12/19 12:16 Zofran Odt Tab* PO Q6H PRN NAUSEA Pantoprazole Sodium 40 mg 11/13/19 09:00 11/13/19 08:19 Protonix Tab* PO 40 mg DAILY PRINCESS Administration Pharmacy Profile Note 1 note 11/12/19 21:00 11/12/19 21:57 Nicotine Patch Removal Note* FOLLOW UP 1 note 2100 PRINCESS Administration Potassium Chloride 20 meq 11/12/19 21:00 11/13/19 08:19 Klor Con Er Tab* PO 11/14/19 23:59 20 meq BID PRINCESS Administration Senna 2 tab 11/12/19 12:08 Senokot 8.6 Mg Tab* PO BEDTIME PRN CONSTIPATION Simethicone 80 mg 11/12/19 17:55 11/12/19 21:34 Mylicon Tab* PO 80 mg Q6H PRN Administration DYSPEPSIA Thiamine HCl 100 mg 11/13/19 09:00 11/13/19 08:20 Vitamin B-1 Tab* PO 100 mg DAILY PRINCESS Administration Tramadol HCl 50 mg 11/12/19 12:16 Ultram* PO Q6H PRN PAIN - MODERATE Vital Signs: Vital Signs Temp Pulse Resp BP Pulse Ox 98.4 F 98 18 107/58 95 11/13/19 16:02 11/13/19 16:02 11/13/19 16:02 11/13/19 16:02 11/13/19 16:02 Exam: GENERAL: Alert and oriented LUNGS: Clear HEART: Reg rhythm ABDOMEN: Soft +BS EXTREMITIES: left hip wound C/D/I NEUROLOGIC: Sensation intact. Strength 5/5 except left hip due to pain Assessment/Plan: 1. Left Hip fracture, S/P L PATRICK: PT/OT. WBAT. 2. COPD: Has not needed inhalers 3. Hypokalemia: Potassium supplement. Will recheck in am 4. DVT Prophylaxis: Lovenox 5. Advance Directives: DNR. Has MOLST 6. Nicotine addiction: will ask for tobacco cessation education 11/13/19 17:53 11/13/19 17:54 11/13/19 17:56
[2019-11-13] MEDS: Simethicone TAB* 80 MG TAB.CHEW PO PRN (21:05)
[2019-11-13] MEDS: Nicotine Patch Removal NOTE FOLLOW UP SCH (21:11)
[2019-11-14 05:53] LABS: ABS Basophils 0.1 10^3/ul (0-0.2); ABS Eosinophils 0.1 10^3/ul (0-0.6); ABS Lymphocytes 0.7 10^3/ul (1.0-4.8); ABS Monocytes 0.5 10^3/ul (0-0.8); ABS Neutrophils 4.6 10^3/ul (1.5-7.7); Eosinophil % 2.2 %; Hematocrit 29 % (35-47); Hemoglobin 9.4 g/dL (12.0-16.0); Lymphocyte % 11.3 %; Mean Corpuscular HGB Conc 33 g/dL (31-36); Mean Corpuscular Hemoglobin 32 pg (27-31); Mean Corpuscular Volume 97 fL (80-97); Mean Platelet Volume 9.8 fL (7.4-10.4); Platelet Count 230 10^3/uL (150-450); Red Blood Count 2.94 10^6 /uL (3.70-4.87); Red Cell Distribution Width 14 % (10-15)
[2019-11-14 06:09] LABS: Albumin 3.3 g/dL (3.2-5.2); Albumin/Globulin Ratio 1.2 (1-3); BUN/Creatinine Ratio 32.5 (8-20); Calcium 8.6 mg/dL (8.6-10.3); EGFR African American 78.9 (>60); EGFR Non-African American 65.2 (>60); Globulin 2.7 g/dL (2-4); Potassium 4.3 mmol/L (3.5-5.0); Total Bilirubin 0.5 mg/dL (0.2-1.0)
[2019-11-14] MEDS: Nicotine PATCH 14 MG/24 HR* PATCH TRANSDERM SCH (07:40)
[2019-11-14] MEDS: Pantoprazole TAB * 40 MG TAB PO SCH (09:10)
[2019-11-14] MEDS: FLUoxetine CAP* 20 MG PO SCH (09:10)
[2019-11-14] MEDS: Thiamine TAB* 100 MG TAB PO SCH (09:10)
[2019-11-14] MEDS: Potassium Chlor TAB* 20 MEQ TAB.ER PO SCH ×2 (09:10→20:08)
[2019-11-14] MEDS: amLODIPine TAB* 5 MG PO SCH (09:10)
[2019-11-14] MEDS: Folic Acid TAB* 1 MG PO SCH (09:11)
[2019-11-14] MEDS: Acetaminophen TAB* 325 MG PO PRN ×2 (09:11→20:08)
[2019-11-14] MEDS: Docusate CAP* 100 MG PO SCH ×2 (09:12→20:09)
[2019-11-14] MEDS: Enoxaparin(*) 30 MG/0.3 ML SYR SUBCUT SCH (09:12)
[2019-11-14] MEDS: BEANO PO SCH (18:36)
--- NOTE | 2019-11-14 19:27 | PN ---
Progress Note Date of Service: 11/14/19 Note: DONELL KOHLI was visited. Therapy notes read and reviewed. Her potassium has normalized and she feels good. I ordered Biofreeze for her right hip which has been bothering her Current Medications: Active Medications Generic Name Dose Route Start Last Admin Trade Name Freq PRN Reason Stop Dose Admin Acetaminophen 650 mg 11/12/19 12:08 11/14/19 09:11 Tylenol Tab* PO 650 mg Q6H PRN Administration MILD PAIN or TEMP > 100.4 Amlodipine Besylate 10 mg 11/13/19 09:00 11/14/19 09:10 Norvasc Tab* PO 10 mg DAILY PRINCESS Administration Docusate Sodium 100 mg 11/12/19 21:00 11/14/19 09:12 Colace Cap* PO Not Given BID PRINCESS Enoxaparin Sodium 30 mg 11/13/19 09:00 11/14/19 09:12 Lovenox(*) SUBCUT 30 mg Q24H PRINCESS Administration Fluoxetine HCl 60 mg 11/13/19 09:00 11/14/19 09:10 Prozac Cap* PO 60 mg DAILY PRINCESS Administration Folic Acid 1 mg 11/13/19 09:00 11/14/19 09:11 Folvite Tab* PO 1 mg DAILY PRINCESS Administration Magnesium Hydroxide 30 ml 11/12/19 12:08 Milk Of Magnesia Liq* PO Q6H PRN CONSTIPATION Nicotine 1 patch 11/13/19 08:00 11/14/19 07:40 Nicotine Patch 14 Mg/24 Hr* TRANSDERM 1 patch 0800 PRINCESS Administration Pto: Beano 1 Tab 1 tab 11/15/19 16:30 11/14/19 18:36 PO 1 tab 1630 PRINCESS Administration Pto: Biofreeze 1 1 applic 11/14/19 21:00 Applic) TOPICAL BID PRINCESS Ondansetron HCl 4 mg 11/12/19 12:16 Zofran Odt Tab* PO Q6H PRN NAUSEA Pantoprazole Sodium 40 mg 11/13/19 09:00 11/14/19 09:10 Protonix Tab* PO 40 mg DAILY PRINCESS Administration Pharmacy Profile Note 1 note 11/12/19 21:00 11/13/19 21:11 Nicotine Patch Removal Note* FOLLOW UP 1 note 2100 PRINCESS Administration Potassium Chloride 20 meq 11/12/19 21:00 11/14/19 09:10 Klor Con Er Tab* PO 11/14/19 23:59 20 meq BID PRINCESS Administration Senna 2 tab 11/12/19 12:08 Senokot 8.6 Mg Tab* PO BEDTIME PRN CONSTIPATION Simethicone 80 mg 11/12/19 17:55 11/13/19 21:05 Mylicon Tab* PO 80 mg Q6H PRN Administration DYSPEPSIA Thiamine HCl 100 mg 11/13/19 09:00 11/14/19 09:10 Vitamin B-1 Tab* PO 100 mg DAILY PRINCESS Administration Tramadol HCl 50 mg 11/12/19 12:16 Ultram* PO Q6H PRN PAIN - MODERATE Vital Signs: Vital Signs Temp Pulse Resp BP Pulse Ox 97.7 F 90 18 102/45 99 11/14/19 15:06 11/14/19 15:06 11/14/19 15:06 11/14/19 15:06 11/14/19 15:57 Lab Results: Laboratory Results - last 24 hr 11/14/19 11/14/19 05:45 05:45 WBC 6.0 RBC 2.94 L Hgb 9.4 L Hct 29 L MCV 97 MCH 32 H MCHC 33 RDW 14 Plt Count 230 MPV 9.8 Neut % (Auto) 77.2 Lymph % (Auto) 11.3 [place] % (Auto) 8.4 Eos % (Auto) 2.2 Baso % (Auto) 0.9 Absolute Neuts (auto) 4.6 Absolute Lymphs (auto) 0.7 L Absolute Monos (auto) 0.5 Absolute Eos (auto) 0.1 Absolute Basos (auto) 0.1 Absolute Nucleated RBC 0.0 Nucleated RBC % 0.0 Sodium 137 Potassium 4.3 Chloride 106 Carbon Dioxide 27 Anion Gap 4 BUN 27 H Creatinine 0.83 Est GFR ( Amer) 78.9 Est GFR (Non-Af Amer) 65.2 BUN/Creatinine Ratio 32.5 H Glucose 134 H Calcium 8.6 Total Bilirubin 0.50 AST 27 ALT 19 Alkaline Phosphatase 83 Total Protein 6.0 L Albumin 3.3 Globulin 2.7 Albumin/Globulin Ratio 1.2 Exam: GENERAL: Alert and oriented LUNGS: Clear HEART: Reg rhythm ABDOMEN: Soft +BS EXTREMITIES: left hip wound C/D/I NEUROLOGIC: Sensation intact. Strength 5/5 except left hip due to pain Assessment/Plan: 1. Left Hip fracture, S/P L PATRICK: PT/OT. WBAT. 2. COPD: Has not needed inhalers 3. Hypokalemia: Resolved 4. DVT Prophylaxis: Lovenox 5. Advance Directives: DNR. Has MOLST 6. Nicotine addiction: will ask for tobacco cessation education 11/14/19 19:27 11/14/19 19:28
[2019-11-14] MEDS: BIOFREEZE TOPICAL SCH (20:09)
[2019-11-14] MEDS: Nicotine Patch Removal NOTE FOLLOW UP SCH (22:01)
[2019-11-15] MEDS: Docusate CAP* 100 MG PO SCH ×2 (08:30→19:57)
[2019-11-15] MEDS: Folic Acid TAB* 1 MG PO SCH (08:31)
[2019-11-15] MEDS: Thiamine TAB* 100 MG TAB PO SCH (08:31)
[2019-11-15] MEDS: FLUoxetine CAP* 20 MG PO SCH (08:31)
[2019-11-15] MEDS: amLODIPine TAB* 5 MG PO SCH (08:32)
[2019-11-15] MEDS: Enoxaparin(*) 30 MG/0.3 ML SYR SUBCUT SCH (08:32)
[2019-11-15] MEDS: Pantoprazole TAB * 40 MG TAB PO SCH (08:32)
[2019-11-15] MEDS: Acetaminophen TAB* 325 MG PO PRN ×2 (08:33→20:06)
[2019-11-15] MEDS: Nicotine PATCH 14 MG/24 HR* PATCH TRANSDERM SCH (10:27)
[2019-11-15] MEDS: BIOFREEZE TOPICAL SCH ×2 (10:29→20:08)
[2019-11-15] MEDS: BEANO PO SCH (16:55)
--- NOTE | 2019-11-15 19:35 | PN ---
Progress Note Date of Service: 11/15/19 Note: DONELL KOHLI was visited. Therapy notes read and reviewed. She has few complaints, thinks the Biofreeze is helping her right hip. Otherwise doing ok Current Medications: Active Medications Generic Name Dose Route Start Last Admin Trade Name Freq PRN Reason Stop Dose Admin Acetaminophen 650 mg 11/12/19 12:08 11/15/19 08:33 Tylenol Tab* PO 650 mg Q6H PRN Administration MILD PAIN or TEMP > 100.4 Amlodipine Besylate 10 mg 11/13/19 09:00 11/15/19 08:32 Norvasc Tab* PO 10 mg DAILY PRINCESS Administration Docusate Sodium 100 mg 11/12/19 21:00 11/15/19 08:30 Colace Cap* PO Not Given BID PRINCESS Enoxaparin Sodium 30 mg 11/13/19 09:00 11/15/19 08:32 Lovenox(*) SUBCUT 30 mg Q24H PRINCESS Administration Fluoxetine HCl 60 mg 11/13/19 09:00 11/15/19 08:31 Prozac Cap* PO 60 mg DAILY PRINCESS Administration Folic Acid 1 mg 11/13/19 09:00 11/15/19 08:31 Folvite Tab* PO 1 mg DAILY PRINCESS Administration Magnesium Hydroxide 30 ml 11/12/19 12:08 Milk Of Magnesia Liq* PO Q6H PRN CONSTIPATION Nicotine 1 patch 11/13/19 08:00 11/15/19 10:27 Nicotine Patch 14 Mg/24 Hr* TRANSDERM 1 patch 0800 PRINCESS Administration Pto: Beano 1 Tab 1 tab 11/15/19 16:30 11/15/19 16:55 PO 1 tab 1630 PRINCESS Administration Pto: Biofreeze 1 1 applic 11/14/19 21:00 11/15/19 10:29 Applic) TOPICAL 1 applic BID PRINCESS Administration Ondansetron HCl 4 mg 11/12/19 12:16 Zofran Odt Tab* PO Q6H PRN NAUSEA Pantoprazole Sodium 40 mg 11/13/19 09:00 11/15/19 08:32 Protonix Tab* PO 40 mg DAILY PRINCESS Administration Pharmacy Profile Note 1 note 11/12/19 21:00 11/14/19 22:01 Nicotine Patch Removal Note* FOLLOW UP 1 note 2100 PRINCESS Administration Senna 2 tab 11/12/19 12:08 Senokot 8.6 Mg Tab* PO BEDTIME PRN CONSTIPATION Simethicone 80 mg 11/12/19 17:55 11/13/19 21:05 Mylicon Tab* PO 80 mg Q6H PRN Administration DYSPEPSIA Thiamine HCl 100 mg 11/13/19 09:00 11/15/19 08:31 Vitamin B-1 Tab* PO 100 mg DAILY PRINCESS Administration Tramadol HCl 50 mg 11/12/19 12:16 Ultram* PO Q6H PRN PAIN - MODERATE Vital Signs: Vital Signs Temp Pulse Resp BP Pulse Ox 97.9 F 89 24 119/50 98 11/15/19 16:51 11/15/19 16:51 11/15/19 16:51 11/15/19 16:51 11/15/19 16:51 Exam: GENERAL: Alert and oriented LUNGS: Clear HEART: Reg rhythm ABDOMEN: Soft +BS EXTREMITIES: left hip wound C/D/I NEUROLOGIC: Sensation intact. Strength 5/5 except left hip due to pain Assessment/Plan: 1. Left Hip fracture, S/P L PATRICK: PT/OT. WBAT. 2. COPD: Has not needed inhalers 3. Hypokalemia: Resolved 4. DVT Prophylaxis: Lovenox 5. Advance Directives: DNR. Has MOLST 6. Nicotine addiction: will ask for tobacco cessation education 11/15/19 19:35
[2019-11-15] MEDS: Nicotine Patch Removal NOTE FOLLOW UP SCH (21:04)
[2019-11-16] MEDS: Nicotine PATCH 14 MG/24 HR* PATCH TRANSDERM SCH (08:03)
[2019-11-16] MEDS: Enoxaparin(*) 30 MG/0.3 ML SYR SUBCUT SCH (08:04)
[2019-11-16] MEDS: Acetaminophen TAB* 325 MG PO PRN ×2 (08:05→20:02)
[2019-11-16] MEDS: FLUoxetine CAP* 20 MG PO SCH (08:05)
[2019-11-16] MEDS: Folic Acid TAB* 1 MG PO SCH (08:05)
[2019-11-16] MEDS: amLODIPine TAB* 5 MG PO SCH (08:05)
[2019-11-16] MEDS: Thiamine TAB* 100 MG TAB PO SCH (08:05)
[2019-11-16] MEDS: Docusate CAP* 100 MG PO SCH ×2 (08:05→20:01)
[2019-11-16] MEDS: Pantoprazole TAB * 40 MG TAB PO SCH (08:05)
[2019-11-16] MEDS: BIOFREEZE TOPICAL SCH ×2 (10:12→20:03)
[2019-11-16] MEDS: BEANO PO SCH (16:40)
--- NOTE | 2019-11-16 18:41 | PN ---
Progress Note Date of Service: 11/16/19 Note: DONELL KOHLI was visited. Therapy notes read and reviewed. She would like to keep Biofreeze at her bedside. Otherwise has no complaints. Staff worried about her remembering her hip precautions. Current Medications: Active Medications Generic Name Dose Route Start Last Admin Trade Name Freq PRN Reason Stop Dose Admin Acetaminophen 650 mg 11/12/19 12:08 11/16/19 08:05 Tylenol Tab* PO 650 mg Q6H PRN Administration MILD PAIN or TEMP > 100.4 Amlodipine Besylate 10 mg 11/13/19 09:00 11/16/19 08:05 Norvasc Tab* PO 10 mg DAILY PRINCESS Administration Docusate Sodium 100 mg 11/12/19 21:00 11/16/19 08:05 Colace Cap* PO 100 mg BID PRINCESS Administration Enoxaparin Sodium 30 mg 11/13/19 09:00 11/16/19 08:04 Lovenox(*) SUBCUT 30 mg Q24H PRINCESS Administration Fluoxetine HCl 60 mg 11/13/19 09:00 11/16/19 08:05 Prozac Cap* PO 60 mg DAILY PRINCESS Administration Folic Acid 1 mg 11/13/19 09:00 11/16/19 08:05 Folvite Tab* PO 1 mg DAILY PRINCESS Administration Magnesium Hydroxide 30 ml 11/12/19 12:08 Milk Of Magnesia Liq* PO Q6H PRN CONSTIPATION Nicotine 1 patch 11/13/19 08:00 11/16/19 08:03 Nicotine Patch 14 Mg/24 Hr* TRANSDERM 1 patch 0800 PRINCESS Administration Pto: Beano 1 Tab 1 tab 11/15/19 16:30 11/16/19 16:40 PO 1 tab 1630 PRINCESS Administration Pto: Biofreeze 1 1 applic 11/14/19 21:00 11/16/19 10:12 Applic) TOPICAL 1 applic BID PRINCESS Administration Ondansetron HCl 4 mg 11/12/19 12:16 Zofran Odt Tab* PO Q6H PRN NAUSEA Pantoprazole Sodium 40 mg 11/13/19 09:00 11/16/19 08:05 Protonix Tab* PO 40 mg DAILY PRINCESS Administration Pharmacy Profile Note 1 note 11/12/19 21:00 11/15/19 21:04 Nicotine Patch Removal Note* FOLLOW UP 1 note 2100 PRINCESS Administration Senna 2 tab 11/12/19 12:08 Senokot 8.6 Mg Tab* PO BEDTIME PRN CONSTIPATION Simethicone 80 mg 11/12/19 17:55 11/13/19 21:05 Mylicon Tab* PO 80 mg Q6H PRN Administration DYSPEPSIA Thiamine HCl 100 mg 11/13/19 09:00 11/16/19 08:05 Vitamin B-1 Tab* PO 100 mg DAILY PRINCESS Administration Tramadol HCl 50 mg 11/12/19 12:16 Ultram* PO Q6H PRN PAIN - MODERATE Vital Signs: Vital Signs Temp Pulse Resp BP Pulse Ox 97.8 F 89 18 121/47 99 11/16/19 17:00 11/16/19 17:00 11/16/19 17:00 11/16/19 17:00 11/16/19 17:34 Exam: GENERAL: Alert and oriented LUNGS: Clear HEART: Reg rhythm ABDOMEN: Soft +BS EXTREMITIES: left hip wound C/D/I NEUROLOGIC: Sensation intact. Strength 5/5 except left hip due to pain Assessment/Plan: 1. Left Hip fracture, S/P L PATRICK: PT/OT. WBAT. 2. COPD: Has not needed inhalers 3. Hypokalemia: Resolved 4. DVT Prophylaxis: Lovenox 5. Advance Directives: DNR. Has MOLST 6. Nicotine addiction: will ask for tobacco cessation education 11/16/19 18:41
[2019-11-16] MEDS: Nicotine Patch Removal NOTE FOLLOW UP SCH (20:07)
[2019-11-17] MEDS: amLODIPine TAB* 5 MG PO SCH (09:58)
[2019-11-17] MEDS: BIOFREEZE TOPICAL SCH ×2 (09:58→21:25)
[2019-11-17] MEDS: FLUoxetine CAP* 20 MG PO SCH (09:59)
[2019-11-17] MEDS: Folic Acid TAB* 1 MG PO SCH (09:59)
[2019-11-17] MEDS: Enoxaparin(*) 30 MG/0.3 ML SYR SUBCUT SCH (09:59)
[2019-11-17] MEDS: Docusate CAP* 100 MG PO SCH ×2 (09:59→22:06)
[2019-11-17] MEDS: Thiamine TAB* 100 MG TAB PO SCH (10:00)
[2019-11-17] MEDS: Pantoprazole TAB * 40 MG TAB PO SCH (10:00)
[2019-11-17] MEDS: Nicotine PATCH 14 MG/24 HR* PATCH TRANSDERM SCH (11:56)
--- NOTE | 2019-11-17 14:14 | PN ---
Progress Note Date of Service: 11/17/19 Note: DONELL KOHLI was visited. Therapy notes read and reviewed. She has no complaints and feels good. Eating ok. Current Medications: Active Medications Generic Name Dose Route Start Last Admin Trade Name Freq PRN Reason Stop Dose Admin Acetaminophen 650 mg 11/12/19 12:08 11/16/19 20:02 Tylenol Tab* PO 650 mg Q6H PRN Administration MILD PAIN or TEMP > 100.4 Amlodipine Besylate 10 mg 11/13/19 09:00 11/17/19 09:58 Norvasc Tab* PO 10 mg DAILY PRINCESS Administration Docusate Sodium 100 mg 11/12/19 21:00 11/17/19 09:59 Colace Cap* PO 100 mg BID PRINCESS Administration Enoxaparin Sodium 30 mg 11/13/19 09:00 11/17/19 09:59 Lovenox(*) SUBCUT 30 mg Q24H PRINCESS Administration Fluoxetine HCl 60 mg 11/13/19 09:00 11/17/19 09:59 Prozac Cap* PO 60 mg DAILY PRINCESS Administration Folic Acid 1 mg 11/13/19 09:00 11/17/19 09:59 Folvite Tab* PO 1 mg DAILY PRINCESS Administration Magnesium Hydroxide 30 ml 11/12/19 12:08 Milk Of Magnesia Liq* PO Q6H PRN CONSTIPATION Nicotine 1 patch 11/13/19 08:00 11/17/19 11:56 Nicotine Patch 14 Mg/24 Hr* TRANSDERM 1 patch 0800 PRINCESS Administration Pto: Beano 1 Tab 1 tab 11/15/19 16:30 11/16/19 16:40 PO 1 tab 1630 PRINCESS Administration Pto: Biofreeze 1 1 applic 11/14/19 21:00 11/17/19 09:58 Applic) TOPICAL 1 applic BID PRINCESS Administration Ondansetron HCl 4 mg 11/12/19 12:16 Zofran Odt Tab* PO Q6H PRN NAUSEA Pantoprazole Sodium 40 mg 11/13/19 09:00 11/17/19 10:00 Protonix Tab* PO 40 mg DAILY PRINCESS Administration Pharmacy Profile Note 1 note 11/12/19 21:00 11/16/19 20:07 Nicotine Patch Removal Note* FOLLOW UP 1 note 2100 PRINCESS Administration Senna 2 tab 11/12/19 12:08 Senokot 8.6 Mg Tab* PO BEDTIME PRN CONSTIPATION Simethicone 80 mg 11/12/19 17:55 11/13/19 21:05 Mylicon Tab* PO 80 mg Q6H PRN Administration DYSPEPSIA Thiamine HCl 100 mg 11/13/19 09:00 11/17/19 10:00 Vitamin B-1 Tab* PO 100 mg DAILY PRINCESS Administration Tramadol HCl 50 mg 11/12/19 12:16 Ultram* PO Q6H PRN PAIN - MODERATE Vital Signs: Vital Signs Temp Pulse Resp BP Pulse Ox 97.9 F 90 18 141/63 99 11/17/19 05:19 11/17/19 05:19 11/17/19 08:00 11/17/19 05:19 11/17/19 08:00 Exam: GENERAL: Alert and oriented LUNGS: Clear HEART: Reg rhythm ABDOMEN: Soft +BS EXTREMITIES: left hip wound C/D/I NEUROLOGIC: Sensation intact. Strength 5/5 except left hip due to pain Assessment/Plan: 1. Left Hip fracture, S/P L PATRICK: PT/OT. WBAT. 2. COPD: Has not needed inhalers 3. Hypokalemia: Resolved 4. DVT Prophylaxis: Lovenox 5. Advance Directives: DNR. Has MOLST 6. Nicotine addiction: will ask for tobacco cessation education 11/17/19 14:14
[2019-11-17] MEDS: BEANO PO SCH (16:08)
[2019-11-17] MEDS: Acetaminophen TAB* 325 MG PO PRN (22:08)
[2019-11-17] MEDS: Nicotine Patch Removal NOTE FOLLOW UP SCH (22:11)
[2019-11-18] MEDS: Simethicone TAB* 80 MG TAB.CHEW PO PRN (00:24)
[2019-11-18] MEDS: Docusate CAP* 100 MG PO SCH ×2 (10:22→20:50)
[2019-11-18] MEDS: amLODIPine TAB* 5 MG PO SCH (10:22)
[2019-11-18] MEDS: Nicotine PATCH 14 MG/24 HR* PATCH TRANSDERM SCH (10:22)
[2019-11-18] MEDS: Pantoprazole TAB * 40 MG TAB PO SCH (10:23)
[2019-11-18] MEDS: Enoxaparin(*) 30 MG/0.3 ML SYR SUBCUT SCH (10:23)
[2019-11-18] MEDS: FLUoxetine CAP* 20 MG PO SCH (10:23)
[2019-11-18] MEDS: Folic Acid TAB* 1 MG PO SCH (10:23)
[2019-11-18] MEDS: Thiamine TAB* 100 MG TAB PO SCH (10:23)
[2019-11-18] MEDS: BIOFREEZE TOPICAL SCH ×2 (10:23→21:00)
--- NOTE | 2019-11-18 15:56 | PN ---
Progress Note Date of Service: 11/18/19 Note: DONELL KOHLI was visited. Nursing notes read and reviewed. Donell feels good today and she had her hair done. No specific complaints Current Medications: Active Medications Generic Name Dose Route Start Last Admin Trade Name Freq PRN Reason Stop Dose Admin Acetaminophen 650 mg 11/12/19 12:08 11/17/19 22:08 Tylenol Tab* PO 650 mg Q6H PRN Administration MILD PAIN or TEMP > 100.4 Amlodipine Besylate 10 mg 11/13/19 09:00 11/18/19 10:22 Norvasc Tab* PO 10 mg DAILY PRINCESS Administration Docusate Sodium 100 mg 11/12/19 21:00 11/18/19 10:22 Colace Cap* PO 100 mg BID PRINCESS Administration Enoxaparin Sodium 30 mg 11/13/19 09:00 11/18/19 10:23 Lovenox(*) SUBCUT 30 mg Q24H PRINCESS Administration Fluoxetine HCl 60 mg 11/13/19 09:00 11/18/19 10:23 Prozac Cap* PO 60 mg DAILY PRINCESS Administration Folic Acid 1 mg 11/13/19 09:00 11/18/19 10:23 Folvite Tab* PO 1 mg DAILY PRINCESS Administration Magnesium Hydroxide 30 ml 11/12/19 12:08 Milk Of Magnesia Liq* PO Q6H PRN CONSTIPATION Nicotine 1 patch 11/13/19 08:00 11/18/19 10:22 Nicotine Patch 14 Mg/24 Hr* TRANSDERM 1 patch 0800 PRINCESS Administration Pto: Beano 1 Tab 1 tab 11/15/19 16:30 11/17/19 16:08 PO 1 tab 1630 PRINCESS Administration Pto: Biofreeze 1 1 applic 11/14/19 21:00 11/18/19 10:23 Applic) TOPICAL 1 applic BID PRINCESS Administration Ondansetron HCl 4 mg 11/12/19 12:16 11/17/19 15:56 Zofran Odt Tab* PO 4 mg Q6H PRN Administration NAUSEA Pantoprazole Sodium 40 mg 11/13/19 09:00 11/18/19 10:23 Protonix Tab* PO 40 mg DAILY PRINCESS Administration Pharmacy Profile Note 1 note 11/12/19 21:00 11/17/19 22:11 Nicotine Patch Removal Note* FOLLOW UP 1 note 2100 PRINCESS Administration Senna 2 tab 11/12/19 12:08 Senokot 8.6 Mg Tab* PO BEDTIME PRN CONSTIPATION Simethicone 80 mg 11/12/19 17:55 11/18/19 00:24 Mylicon Tab* PO 80 mg Q6H PRN Administration DYSPEPSIA Thiamine HCl 100 mg 11/13/19 09:00 11/18/19 10:23 Vitamin B-1 Tab* PO 100 mg DAILY PRINCESS Administration Tramadol HCl 50 mg 11/12/19 12:16 Ultram* PO Q6H PRN PAIN - MODERATE Vital Signs: Vital Signs Temp Pulse Resp BP Pulse Ox 97.8 F 97 18 133/66 98 11/18/19 05:28 11/18/19 05:28 11/18/19 08:00 11/18/19 05:28 11/18/19 08:00 Exam: GENERAL: Alert and oriented LUNGS: Clear HEART: Reg rhythm ABDOMEN: Soft +BS EXTREMITIES: left hip wound C/D/I NEUROLOGIC: Sensation intact. Strength 5/5 except left hip due to pain Assessment/Plan: 1. Left Hip fracture, S/P L PATRICK: PT/OT. WBAT. 2. COPD: Has not needed inhalers 3. Hypokalemia: Resolved 4. DVT Prophylaxis: Lovenox 5. Advance Directives: DNR. Has MOLST 6. Nicotine addiction: will ask for tobacco cessation education 11/18/19 15:56
[2019-11-18] MEDS: BEANO PO SCH ×2 (18:29→21:43)
[2019-11-18] MEDS: Acetaminophen TAB* 325 MG PO PRN (18:53)
[2019-11-18] MEDS: Nicotine Patch Removal NOTE FOLLOW UP SCH (20:52)
[2019-11-19] MEDS: Acetaminophen TAB* 325 MG PO PRN ×3 (02:42→23:13)
[2019-11-19] MEDS: Docusate CAP* 100 MG PO SCH ×2 (08:29→20:58)
[2019-11-19] MEDS: amLODIPine TAB* 5 MG PO SCH (08:29)
[2019-11-19] MEDS: FLUoxetine CAP* 20 MG PO SCH (08:29)
[2019-11-19] MEDS: Nicotine PATCH 14 MG/24 HR* PATCH TRANSDERM SCH (08:29)
[2019-11-19] MEDS: Enoxaparin(*) 30 MG/0.3 ML SYR SUBCUT SCH (08:29)
[2019-11-19] MEDS: Thiamine TAB* 100 MG TAB PO SCH (08:30)
[2019-11-19] MEDS: Folic Acid TAB* 1 MG PO SCH (08:30)
[2019-11-19] MEDS: Pantoprazole TAB * 40 MG TAB PO SCH (08:30)
[2019-11-19] MEDS: BIOFREEZE TOPICAL SCH ×2 (08:33→20:55)
[2019-11-19] MEDS: BEANO PO SCH (16:43)
--- NOTE | 2019-11-19 18:32 | PN ---
Progress Note Date of Service: 11/19/19 Note: DONELL KOHLI was visited. Therapy notes read and reviewed. She feels good but her appetite is limited. She has no other complaints at present Current Medications: Active Medications Generic Name Dose Route Start Last Admin Trade Name Freq PRN Reason Stop Dose Admin Acetaminophen 650 mg 11/12/19 12:08 11/19/19 15:14 Tylenol Tab* PO 650 mg Q6H PRN Administration MILD PAIN or TEMP > 100.4 Amlodipine Besylate 10 mg 11/13/19 09:00 11/19/19 08:29 Norvasc Tab* PO 10 mg DAILY PRINCESS Administration Docusate Sodium 100 mg 11/12/19 21:00 11/19/19 08:29 Colace Cap* PO 100 mg BID PRINCESS Administration Enoxaparin Sodium 30 mg 11/13/19 09:00 11/19/19 08:29 Lovenox(*) SUBCUT 30 mg Q24H PRINCESS Administration Fluoxetine HCl 60 mg 11/13/19 09:00 11/19/19 08:29 Prozac Cap* PO 60 mg DAILY PRINCESS Administration Folic Acid 1 mg 11/13/19 09:00 11/19/19 08:30 Folvite Tab* PO 1 mg DAILY PRINCESS Administration Magnesium Hydroxide 30 ml 11/12/19 12:08 Milk Of Magnesia Liq* PO Q6H PRN CONSTIPATION Nicotine 1 patch 11/13/19 08:00 11/19/19 08:29 Nicotine Patch 14 Mg/24 Hr* TRANSDERM 1 patch 0800 PRINCESS Administration Pto: Beano 1 Tab 1 tab 11/15/19 16:30 11/19/19 16:43 PO 1 tab 1630 PRINCESS Administration Pto: Biofreeze 1 1 applic 11/14/19 21:00 11/19/19 08:33 Applic) TOPICAL 1 applic BID PRINCESS Administration Non-Formulary Medication 1 applic 11/19/19 21:00 Arnica TOPICAL BID PRINCESS Ondansetron HCl 4 mg 11/12/19 12:16 11/17/19 15:56 Zofran Odt Tab* PO 4 mg Q6H PRN Administration NAUSEA Pantoprazole Sodium 40 mg 11/13/19 09:00 11/19/19 08:30 Protonix Tab* PO 40 mg DAILY PRINCESS Administration Pharmacy Profile Note 1 note 11/12/19 21:00 11/18/19 20:52 Nicotine Patch Removal Note* FOLLOW UP 1 note 2100 PRINCESS Administration Senna 2 tab 11/12/19 12:08 Senokot 8.6 Mg Tab* PO BEDTIME PRN CONSTIPATION Simethicone 80 mg 11/12/19 17:55 11/18/19 00:24 Mylicon Tab* PO 80 mg Q6H PRN Administration DYSPEPSIA Thiamine HCl 100 mg 11/13/19 09:00 11/19/19 08:30 Vitamin B-1 Tab* PO 100 mg DAILY PRINCESS Administration Tramadol HCl 50 mg 11/12/19 12:16 Ultram* PO Q6H PRN PAIN - MODERATE Vital Signs: Vital Signs Temp Pulse Resp BP Pulse Ox 98.3 F 84 20 114/48 98 11/19/19 16:24 11/19/19 16:24 11/19/19 16:24 11/19/19 16:24 11/19/19 16:41 Exam: GENERAL: Alert and oriented LUNGS: Clear HEART: Reg rhythm ABDOMEN: Soft +BS EXTREMITIES: left hip wound C/D/I NEUROLOGIC: Sensation intact. Strength 5/5 except left hip due to pain Assessment/Plan: 1. Left Hip fracture, S/P L PATRICK: PT/OT. WBAT. 2. COPD: Has not needed inhalers 3. Hypokalemia: Resolved 4. DVT Prophylaxis: Lovenox 5. Advance Directives: DNR. Has MOLST 6. Nicotine addiction: nicotone substitute as warranted 11/19/19 18:32
[2019-11-19] MEDS: Simethicone TAB* 80 MG TAB.CHEW PO PRN (20:52)
[2019-11-19] MEDS: ARNICA TOPICAL SCH (20:52)
[2019-11-19] MEDS: Nicotine Patch Removal NOTE FOLLOW UP SCH (20:58)
[2019-11-20] MEDS: Docusate CAP* 100 MG PO SCH ×3 (00:53→20:32)
[2019-11-20] MEDS: Nicotine PATCH 14 MG/24 HR* PATCH TRANSDERM SCH (08:59)
[2019-11-20] MEDS: amLODIPine TAB* 5 MG PO SCH (09:00)
[2019-11-20] MEDS: Thiamine TAB* 100 MG TAB PO SCH (09:00)
[2019-11-20] MEDS: Folic Acid TAB* 1 MG PO SCH (09:00)
[2019-11-20] MEDS: FLUoxetine CAP* 20 MG PO SCH (09:00)
[2019-11-20] MEDS: BIOFREEZE TOPICAL SCH ×3 (09:00→20:32)
[2019-11-20] MEDS: Pantoprazole TAB * 40 MG TAB PO SCH (09:01)
[2019-11-20] MEDS: Enoxaparin(*) 30 MG/0.3 ML SYR SUBCUT SCH (09:01)
[2019-11-20] MEDS: ARNICA TOPICAL SCH ×2 (09:02→20:32)
[2019-11-20] MEDS: Acetaminophen TAB* 325 MG PO PRN ×2 (11:15→20:31)
--- NOTE | 2019-11-20 12:30 | PMRUTEAM ---
PMRU: Team Meeting Current Status: Physical Therapy: Current Status Current Rolling Status Supervision/Touching Current Supine <-> Sit Status Supervision/Touching Current Sit <-> Stand Status Supervision/Touching Current Bed <-> Chair Status Supervision/Touching Transfer/Bed Mobility Rolling Walker Recommended Devices Transfer Mobility Comment pt. is S x 1 for transfers using a 2 w/w . Current Picking Up Object Not attempted Status Current Car Transfer Status Partial/Moderate Current Ambulation Assistance Supervision/Touching Status Ambulation Assistive Device Rolling Walker Ambulation Conditions Two or More Turns Current Ambulation Distance 150' Ambulation Comment Pt. hkas an improved reciprocal type gait pattern . Current Wheelchair Propulsion Not Applicable Ability Status Current Stair Climbing Status Supervision/Touching Stair Climbing Assistive Left Railing,Right Railing Devices Number of Stairs Climbed 10 Current Curb Assistance Status Not attempted Objective Comments Pt. is able to recite all three hip precautions and is now better able to put them into practice . Upon sitting in recliner chair in room pt. said are my hips ok like this . Risk Prevention Engineer responed: I'm glad you checked that means you're thinking about your hip precautions. Occupational Therapy: Current Status Current Upper Body Dressing Setup or Clean-up Assist Status Current Lower Body Dressing Substantial/Maximal Status Current Footwear Status Dependent Current Bathing Status Partial/Moderate Current Grooming Status Setup or Clean-up Assist Current Toileting Status Supervision/Touching Current Toilet Transfer Status Supervision/Touching Current Eating Status Independent Nursing: Current Status Skin Deviations [Coccyx] Other Skin Deviations [Left Hip] Incision Skin Deviation Description [ sl reddened Coccyx] Skin Deviation Description [ healing - SONIYA Left Hip] Bladder Current Status dependent Bowel Current Status dependent Nutrition Current Status eat about 30% of meals Medication Current Status dependent Rec Therapy: Current Status Summary of Assessment and Recreation therapy assessment complete and pt is Clinical Impression aware of services. Pt often has friends and family in to visit with her, but she is open to leisure visits and pet therapy. Pt also appeared to enjoy having the harpist come in to play for her. Treatment Goals Pt will engaged in leisure activities while on the unit, as tolerated Treatment Plan Provide recreation therapy services and encourage involvement Social Work: Current Status Discharge Plan return home with home care svs and support from family and friends Potential for Family Training pt's family and friends are involved and supportive Anticipated Discharge Home Destination Discharge With home care svs and support from family and friends Nutrition: Current Status Monitoring Pt continues on regular unrestricted diet w/ noted improvement in intake; consumed 75-100% all meals yesterday. Additionally, she continues to receive and consume Ensure Enlive at B and HS snack daily , in addition to other nourishment, to optimize kcal/prot intake; will continue to send. Daily BMs , in general. Will continue to monitor and provide further nutrition intervention as indicated. Goals: Physical Therapy: Goals Goals to Be Accomplished in ( 7-10 Days) Goal: Rolling Assistance Independent Goal Supine <-> Sit Status Independent Goal Sit <-> Stand Status Independent Goal Bed <-> Chair Status Independent Transfer/Bed Mobility Rolling Walker Recommended Devices Goal: Picking Up Object Independent Goal: Car Transfer Status Setup or Clean-up Assist Goal: Ambulation Assistance Independent Ambulation Assistive Devices Rolling Walker Ambulation Distance (ft) 150' Goal: Wheelchair Propulsion Not Applicable Ability Goal: Stairs Assistance Independent Stairs Recommended Devices Two Rails Number of Stairs 3 x 5 Goal: Curb Assistance Independent Goal: Home Exercise Program Independent Assistance Occupational Therapy: Goals Goals to be Completed in (Days 7-10 days ) Goal Upper Body Dressing Independent Routine Goal Lower Body Dressing Substantial/Maximal Routine Goal Footwear Status Dependent Goal Bathing Routine (OT) Supervision/Touching Goal Grooming Routine Independent Goal Toilet Hygiene and Supervision/Touching Clothing Management Routine Goal Toilet Transfer Routine Supervision/Touching Goal Functional Transfers for Supervision/Touching ADL Goal Feeding Routine Independent Goal Light Housekeeping Tasks Substantial/Maximal Nutrition: Goals Intervention Goals 1) Adequate po intake to replete lean body mass and support hydration status 2) Maintain fluid/electrolyte balance w/ adequate po intake 3) Maintain bowel regularity w/ adequate po intake and bowel regimen w/o development of diarrhea/ constipation Social Work: Goals Discharge Plan return home with home care svs and support from family and friends Potential for Family Training pt's family and friends are involved and supportive Anticipated Discharge Home Destination Discharge With home care svs and support from family and friends Nursing: Goals Bladder Goal independent Bowel Goal independent Nutrition Goal eat 100% of meals Medication Goal independent Care Plan: Care Plan ADL's - Improve/Maintain Start: 11/12/19 21:58 Freq: DAILY@0700,1900 Status: Active Target: 11/23/19 Protocol: Activity Type Activity Date Activity User E-Sign Co-Sign Detail Recorded Client Recorded Date Recorded By Document 11/19/19 15:00 [id number] 11/19/19 15:00 [id number] 11/19/19 15:00 PMRU Outcome: ADL's/ADL Transfers Orders/Interventions Occupational Therapy Evaluation & Treatment Device Yes Address Deficits Secondary To: L PATRICK Patient to receive OT 5x/wk for 60-120 Therex min/day Self Care Management Group Therapy Neuromuscular ReEducation UE/LE ADL's with Assist Yes: Independent ADL Transfers with Assist Yes: Independent Toileting: Transfers,Clothing Management Yes: ,Hygeine w/Assist Independent Light Kitchen/Laundry w/Assist Yes: Corie Other Outcome/Goals Pt tolerates OT tx session well this date. She does not break any THP during session. She is able to recall 3/3 THP. Progression Toward Outcome/Goals Progressing DVT Prophylaxis- Improve/Maintain Start: 11/12/19 21:58 Freq: DAILY@0700,1900 Status: Active Target: 11/23/19 Protocol: Activity Type Activity Date Activity User E-Sign Co-Sign Detail Recorded Client Recorded Date Recorded By Document 11/20/19 07:00 [id number] 11/20/19 11:33 [id number] 11/20/19 07:00 PMRU Outcome: DVT Prophylaxis Current DVT Outcome/Goals Remains Free of DVT Complies with DVT Prophylaxis /Treatment Demonstrates Knowledge of DVT Prevention/ Treatment TEDS Stockings on Every AM, Off at HS Progression Toward Outcome/Goals Progressing Discharge Planning - Improve/Maintain Start: 11/12/19 21:58 Freq: DAILY@0700,1900 Status: Active Target: 11/23/19 Protocol: Activity Type Activity Date Activity User E-Sign Co-Sign Detail Recorded Client Recorded Date Recorded By Document 11/20/19 07:00 [id number] [email or web address] 11/20/19 11:33 [id number] 11/20/19 07:00 PMRU Outcome: Discharge Planning Update Patient Family Yes: What has already been done with care before he came in Current Discharge Planning Outcome/Goals Demonstrates Understanding of Discharge Plan Homecare Referral - See Comment Progression Toward Outcome/Goals Progressing Education-Improve/Maintain Start: 11/12/19 21:58 Freq: DAILY@0700,1900 Status: Active Target: 11/23/19 Protocol: Activity Type Activity Date Activity User E-Sign Co-Sign Detail Recorded Client Recorded Date Recorded By Document 11/20/19 07:00 [id number] 11/20/19 11:33 [id number] 11/20/19 07:00 PMRU Outcome: Education Current Education Outcome/Goals Demonstrate/ Verbalize Understanding of Written Discharge Instructions Demonstrates Skills Encourage Questions Progression Toward Outcome/Goals Progressing /GI-Improve/Maintain Start: 11/12/19 21:58 Freq: DAILY@0700,1900 Status: Active Target: 11/23/19 Protocol: Activity Type Activity Date Activity User E-Sign Co-Sign Detail Recorded Client Recorded Date Recorded By Document 11/20/19 07:00 [id number] 11/20/19 11:33 [id number] 11/20/19 07:00 PMRU Outcome: Genitourinary/ Gastrointestinal Current Gastrointestinal Outcome/Goals Maintain/ Achieve Bowel Regularity in Accordance with Pt's Baseline Remain Free of Emesis Prevent Constipation Laxatives as Ordered Progression Toward Outcome/Goals Progressing Current Genitourinary Outcome/Goals Maintain/ Achieve Urinary Continence Remain Free of Hospital- Acquired UTI Progression Toward Outcome/Goals Progressing Medication Administration Start: 11/12/19 21:58 Freq: DAILY@699,[id number] Status: Active Target: 11/23/19 Protocol: Activity Type Activity Date Activity User E-Sign Co-Sign Detail Recorded Client Recorded Date Recorded By Document 11/20/19 07:00 [id number] 11/20/19 11:33 [id number] 11/20/19 07:00 PMRU Outcome: Medication Administration Assess Patient Knowledge/Teach Med Yes Education for all Meds Current [place] Outcome/Goals Patient Independent with Medication Administration at Home Demonstrates Understanding Progression Towards Outcome/Goals Progressing Is Patient Going Home on Lovenox? No Mobility- Improve/Maintain Start: 11/12/19 21:58 Freq: DAILY@07,1900 Status: Active Target: 11/19/19 Protocol: Activity Type Activity Date Activity User E-Sign Co-Sign Detail Recorded Client Recorded Date Recorded By Document 11/13/19 16:26 [id number] 11/13/19 16:26 [id number] 11/13/19 16:26 PMRU Outcome: Mobility Physical Therapy Evaluation and Yes Treatment Activity OOB with Assistance Yes WBAT Yes NWB No TTWB No Device Yes Assistance Yes Patient to be seen 5x/wk for 60-120 min/ Therex day for: Mobility Training Gait Training Balance Other Current Mobility Outcome/Goals Maintain/ Achieve Baseline Mobility Status Improve Mobility Status Demonstrates Proper Use of Assistive Devices Free from Complications of Immobility Progression Toward Outcome/Goals Goal Initiation Bed Mobility Yes: Independent Transfers Yes: Independent with RW Gait x ft Yes: 150 with RW Independent W/C Mobility x ft No Up/Down Stairs Yes: 12 with 2 rails Independent With HEP Yes: Independent Pain/Comfort- Improve/Maintain Start: 11/12/19 21:58 Freq: DAILY@699,1899 Status: Active Target: 11/23/19 Protocol: Activity Type Activity Date Activity User E-Sign Co-Sign Detail Recorded Client Recorded Date Recorded By Document 11/20/19 07:00 [id number] 11/20/19 11:33 [id number] 11/20/19 07:00 PMRU Outcome: Pain/Comfort Current Pain/Comfort Outcome/Goals Demonstrates Knowledge and Use of Available Comfort Measures Achieves Acceptable Comfort/Pain Level as Determined by Patient/Condit Maintain Comfort Level Allowing Patient to Fully Participate in Rehab Progression Toward Outcome/Goals Progressing Rec Therapy- Improve/Maintain Start: 11/12/19 13:18 Freq: DAILY@699,1899 Status: Active Target: 11/23/19 Protocol: Activity Type Activity Date Activity User E-Sign Co-Sign Detail Recorded Client Recorded Date Recorded By Document 11/19/19 16:15 [id number] [email or web address] 11/19/19 16:16 [id number] 11/19/19 16:15 PMRU Outcome: Recreation Therapy Current Rec Ther Outcome/Goals Complete Rec Therapy Assessment Meet with Patient Regularly for Support Encourage Leisure Involvement Progression Toward Outcome/Goals Progressing Lack of Progression Comment Met with pt for a brief leisure visit before she had a friend visiting. Outcome/Goals Met Complete Rec Therapy Assessment Safety- Improve/Maintain Start: 11/12/19 12:06 Freq: DAILY@699,1899 Status: Active Target: 11/23/19 Protocol: Activity Type Activity Date Activity User E-Sign Co-Sign Detail Recorded Client Recorded Date Recorded By Document 11/20/19 07:00 [id number] 11/20/19 11:33 [id number] 11/20/19 07:00 PMRU Outcome: Safety Current Safety Outcome/Goals Remain Free of Injury or Harm Cooperates with Safety Measures for Least Restrictive Environment Prevent Falls/ Injury Progression Toward Outcome/Goals Progressing Skin- Improve/Maintain Start: 11/12/19 21:58 Freq: DAILY@0700,1900 Status: Active Target: 11/23/19 Protocol: Activity Type Activity Date Activity User E-Sign Co-Sign Detail Recorded Client Recorded Date Recorded By Document 11/20/19 07:00 [id number] [id number] 11/20/19 11:33 [id number] 11/20/19 07:00 PMRU Outcome: Skin Skin Risk Level Mild Risk Skin Orders Heels Off Bed Turn/Position q2hr While in Bed Current Skin Outcome/Goals Maintain/ Improve Skin Integrity Free from Pressure Injury Surgical Incisions Healing Progression Toward Outcome/Goals Progressing - Interdisciplinary Staff Present Scientific Glass Blower/Social Work Staff Present: Haley Ceballos. [facility] [place] Staff Present: Kelsi Soni RN OT Staff Present: Diamond Fallon PT Staff Present: Franklin Potts ORGAN BUILDER Staff Present: Ralph Amador Medicine Note: Length of Stay: 3 days Anticipated Discharge Destination: Home Tentative Discharge Date: 11/23/19 Discharged to: Home
[2019-11-20] MEDS: BEANO PO SCH (16:23)
--- NOTE | 2019-11-20 17:09 | PN ---
Progress Note Date of Service: 11/20/19 Note: DONELL KOHLI was visited. Therapy notes read and reviewed. She was discussed in interdisciplinary team rounds. Making agains and on target for Tuesday. Can repeat hip precautions but has trouble putting them into practice. Surgery was , will remove ritika prior to d/c Current Medications: Active Medications Generic Name Dose Route Start Last Admin Trade Name Freq PRN Reason Stop Dose Admin Acetaminophen 650 mg 11/12/19 12:08 11/20/19 11:15 Tylenol Tab* PO 650 mg Q6H PRN Administration MILD PAIN or TEMP > 100.4 Amlodipine Besylate 10 mg 11/13/19 09:00 11/20/19 09:00 Norvasc Tab* PO 10 mg DAILY PRINCESS Administration Docusate Sodium 100 mg 11/12/19 21:00 11/20/19 09:01 Colace Cap* PO 100 mg BID PRINCESS Administration Enoxaparin Sodium 30 mg 11/13/19 09:00 11/20/19 09:01 Lovenox(*) SUBCUT 30 mg Q24H PRINCESS Administration Fluoxetine HCl 60 mg 11/13/19 09:00 11/20/19 09:00 Prozac Cap* PO 60 mg DAILY PRINCESS Administration Folic Acid 1 mg 11/13/19 09:00 11/20/19 09:00 Folvite Tab* PO 1 mg DAILY PRINCESS Administration Magnesium Hydroxide 30 ml 11/12/19 12:08 Milk Of Magnesia Liq* PO Q6H PRN CONSTIPATION Nicotine 1 patch 11/13/19 08:00 11/20/19 08:59 Nicotine Patch 14 Mg/24 Hr* TRANSDERM 1 patch 0800 PRINCESS Administration Pto: Beano 1 Tab 1 tab 11/15/19 16:30 11/20/19 16:23 PO 1 tab 1630 PRINCESS Administration Pto: Biofreeze 1 1 applic 11/14/19 21:00 11/20/19 09:00 Applic) TOPICAL Not Given BID PRINCESS Non-Formulary Medication 1 applic 11/19/19 21:00 11/20/19 09:02 Arnica TOPICAL 1 applic BID PRINCESS Administration Ondansetron HCl 4 mg 11/12/19 12:16 11/17/19 15:56 Zofran Odt Tab* PO 4 mg Q6H PRN Administration NAUSEA Pantoprazole Sodium 40 mg 11/13/19 09:00 11/20/19 09:01 Protonix Tab* PO 40 mg DAILY PRINCESS Administration Pharmacy Profile Note 1 note 11/12/19 21:00 11/19/19 20:58 Nicotine Patch Removal Note* FOLLOW UP 1 note 2100 PRINCESS Administration Senna 2 tab 11/12/19 12:08 Senokot 8.6 Mg Tab* PO BEDTIME PRN CONSTIPATION Simethicone 80 mg 11/12/19 17:55 11/19/19 20:52 Mylicon Tab* PO 80 mg Q6H PRN Administration DYSPEPSIA Thiamine HCl 100 mg 11/13/19 09:00 11/20/19 09:00 Vitamin B-1 Tab* PO 100 mg DAILY PRINCESS Administration Tramadol HCl 50 mg 11/12/19 12:16 Ultram* PO Q6H PRN PAIN - MODERATE Vital Signs: Vital Signs Temp Pulse Resp BP Pulse Ox 97.8 F 82 22 106/52 99 11/20/19 15:45 11/20/19 15:45 11/20/19 15:45 11/20/19 15:45 11/20/19 16:14 Exam: GENERAL: Alert and oriented LUNGS: Clear HEART: Reg rhythm ABDOMEN: Soft +BS EXTREMITIES: left hip wound C/D/I NEUROLOGIC: Sensation intact. Strength 5/5 except left hip due to pain Assessment/Plan: 1. Left Hip fracture, S/P L PATRICK: PT/OT. WBAT. Follow up with Dr. Montaño after d/c 2. COPD: Has not needed inhalers 3. Hypokalemia: Resolved 4. DVT Prophylaxis: Lovenox 5. Advance Directives: DNR. Has MOLST 6. Nicotine addiction: nicotone substitute as warranted 11/20/19 17:09
[2019-11-20] MEDS: Nicotine Patch Removal NOTE FOLLOW UP SCH (20:33)
[2019-11-20] MEDS: Simethicone TAB* 80 MG TAB.CHEW PO PRN (20:38)
[2019-11-21 06:20] LABS: ABS Basophils 0.1 10^3/ul (0-0.2); ABS Eosinophils 0.2 10^3/ul (0-0.6); ABS Monocytes 0.5 10^3/ul (0-0.8); Eosinophil % 2.5 %; Hematocrit 29 % (35-47); Hemoglobin 9.7 g/dL (12.0-16.0); Lymphocyte % 15.5 %; Mean Corpuscular HGB Conc 34 g/dL (31-36); Mean Corpuscular Hemoglobin 33 pg (27-31); Mean Corpuscular Volume 97 fL (80-97); Mean Platelet Volume 9.5 fL (7.4-10.4); Platelet Count 387 10^3/uL (150-450); Red Blood Count 2.98 10^6 /uL (3.70-4.87); Red Cell Distribution Width 14 % (10-15); White Blood Count 6.7 10^3/uL (3.5-10.8)
[2019-11-21 06:40] LABS: Albumin 3.3 g/dL (3.2-5.2); Albumin/Globulin Ratio 1.2 (1-3); BUN/Creatinine Ratio 26.8 (8-20); EGFR African American 65.9 (>60); EGFR Non-African American 54.5 (>60); Globulin 2.8 g/dL (2-4); Potassium 3.8 mmol/L (3.5-5.0); Total Bilirubin 0.2 mg/dL (0.2-1.0); Total Protein 6.1 g/dL (6.4-8.9)
[2019-11-21] MEDS: FLUoxetine CAP* 20 MG PO SCH (08:57)
[2019-11-21] MEDS: Pantoprazole TAB * 40 MG TAB PO SCH (08:58)
[2019-11-21] MEDS: Thiamine TAB* 100 MG TAB PO SCH (08:58)
[2019-11-21] MEDS: amLODIPine TAB* 5 MG PO SCH (08:58)
[2019-11-21] MEDS: Folic Acid TAB* 1 MG PO SCH (08:58)
[2019-11-21] MEDS: Enoxaparin(*) 30 MG/0.3 ML SYR SUBCUT SCH (08:59)
[2019-11-21] MEDS: BIOFREEZE TOPICAL SCH ×2 (09:08→20:31)
[2019-11-21] MEDS: Docusate CAP* 100 MG PO SCH ×2 (09:10→20:30)
[2019-11-21] MEDS: Acetaminophen TAB* 325 MG PO PRN ×2 (11:40→22:16)
[2019-11-21] MEDS: Nicotine PATCH 14 MG/24 HR* PATCH TRANSDERM SCH (11:40)
[2019-11-21] MEDS: ARNICA TOPICAL SCH ×2 (11:42→20:30)
[2019-11-21] MEDS: BEANO PO SCH (16:26)
--- NOTE | 2019-11-21 18:39 | PN ---
Progress Note Date of Service: 11/21/19 Note: DONELL KOHLI was visited. Therapy notes read and reviewed. She has a little gas after dinner but otherwise is doing ok and wants to go home Tuesday Current Medications: Active Medications Generic Name Dose Route Start Last Admin Trade Name Freq PRN Reason Stop Dose Admin Acetaminophen 650 mg 11/12/19 12:08 11/21/19 11:40 Tylenol Tab* PO 650 mg Q6H PRN Administration MILD PAIN or TEMP > 100.4 Amlodipine Besylate 10 mg 11/13/19 09:00 11/21/19 08:58 Norvasc Tab* PO 10 mg DAILY PRINCESS Administration Docusate Sodium 100 mg 11/12/19 21:00 11/21/19 09:10 Colace Cap* PO Not Given BID PRINCESS Enoxaparin Sodium 30 mg 11/13/19 09:00 11/21/19 08:59 Lovenox(*) SUBCUT 30 mg Q24H PRINCESS Administration Fluoxetine HCl 60 mg 11/13/19 09:00 11/21/19 08:57 Prozac Cap* PO 60 mg DAILY PRINCESS Administration Folic Acid 1 mg 11/13/19 09:00 11/21/19 08:58 Folvite Tab* PO 1 mg DAILY PRINCESS Administration Magnesium Hydroxide 30 ml 11/12/19 12:08 Milk Of Magnesia Liq* PO Q6H PRN CONSTIPATION Nicotine 1 patch 11/13/19 08:00 11/21/19 11:40 Nicotine Patch 14 Mg/24 Hr* TRANSDERM 1 patch 0800 PRINCESS Administration Pto: Beano 1 Tab 1 tab 11/15/19 16:30 11/21/19 16:26 PO 1 tab 1630 PRINCESS Administration Pto: Biofreeze 1 1 applic 11/14/19 21:00 11/21/19 09:08 Applic) TOPICAL Not Given BID PRINCESS Non-Formulary Medication 1 applic 11/19/19 21:00 11/21/19 11:42 Arnica TOPICAL Not Given BID PRINCESS Ondansetron HCl 4 mg 11/12/19 12:16 11/17/19 15:56 Zofran Odt Tab* PO 4 mg Q6H PRN Administration NAUSEA Pantoprazole Sodium 40 mg 11/13/19 09:00 11/21/19 08:58 Protonix Tab* PO 40 mg DAILY PRINCESS Administration Pharmacy Profile Note 1 note 11/12/19 21:00 11/20/19 20:33 Nicotine Patch Removal Note* FOLLOW UP 1 note 2100 PRINCESS Administration Senna 2 tab 11/12/19 12:08 Senokot 8.6 Mg Tab* PO BEDTIME PRN CONSTIPATION Simethicone 80 mg 11/12/19 17:55 11/20/19 20:38 Mylicon Tab* PO 80 mg Q6H PRN Administration DYSPEPSIA Thiamine HCl 100 mg 11/13/19 09:00 11/21/19 08:58 Vitamin B-1 Tab* PO 100 mg DAILY PRINCESS Administration Tramadol HCl 50 mg 11/12/19 12:16 Ultram* PO Q6H PRN PAIN - MODERATE Vital Signs: Vital Signs Temp Pulse Resp BP Pulse Ox 98.6 F 91 18 137/57 98 11/21/19 16:27 11/21/19 16:27 11/21/19 16:27 11/21/19 16:27 11/21/19 16:27 Lab Results: Laboratory Results - last 24 hr 11/21/19 11/21/19 05:51 05:51 WBC 6.7 RBC 2.98 L Hgb 9.7 L Hct 29 L MCV 97 MCH 33 H MCHC 34 RDW 14 Plt Count 387 MPV 9.5 Neut % (Auto) 74.4 Lymph % (Auto) 15.5 [place] % (Auto) 6.8 Eos % (Auto) 2.5 Baso % (Auto) 0.8 Absolute Neuts (auto) 5.0 Absolute Lymphs (auto) 1.0 Absolute Monos (auto) 0.5 Absolute Eos (auto) 0.2 Absolute Basos (auto) 0.1 Absolute Nucleated RBC 0.0 Nucleated RBC % 0.0 Sodium 139 Potassium 3.8 Chloride 103 Carbon Dioxide 29 Anion Gap 7 BUN 26 H Creatinine 0.97 H Est GFR ( Amer) 65.9 Est GFR (Non-Af Amer) 54.5 BUN/Creatinine Ratio 26.8 H Glucose 114 H Calcium 9.0 Total Bilirubin 0.20 AST 34 ALT 45 Alkaline Phosphatase 115 H Total Protein 6.1 L Albumin 3.3 Globulin 2.8 Albumin/Globulin Ratio 1.2 Exam: GENERAL: Alert and oriented LUNGS: Clear HEART: Reg rhythm ABDOMEN: Soft +BS EXTREMITIES: left hip wound C/D/I NEUROLOGIC: Sensation intact. Strength 5/5 except left hip due to pain Assessment/Plan: 1. Left Hip fracture, S/P L PATRICK: PT/OT. WBAT. Follow up with Dr. Montaño after d/c , may remove ritika tomorrow 2. COPD: Has not needed inhalers 3. Hypokalemia: Resolved 4. DVT Prophylaxis: Lovenox 5. Advance Directives: DNR. Has MOLST 6. Nicotine addiction: nicotone substitute as warranted 11/21/19 18:39
[2019-11-21] MEDS: Nicotine Patch Removal NOTE FOLLOW UP SCH (20:33)
[2019-11-22] MEDS: FLUoxetine CAP* 20 MG PO SCH (08:27)
[2019-11-22] MEDS: Thiamine TAB* 100 MG TAB PO SCH (08:27)
[2019-11-22] MEDS: Folic Acid TAB* 1 MG PO SCH (08:27)
[2019-11-22] MEDS: amLODIPine TAB* 5 MG PO SCH (08:28)
[2019-11-22] MEDS: Docusate CAP* 100 MG PO SCH ×2 (08:28→20:12)
[2019-11-22] MEDS: Enoxaparin(*) 30 MG/0.3 ML SYR SUBCUT SCH (08:28)
[2019-11-22] MEDS: Pantoprazole TAB * 40 MG TAB PO SCH (08:28)
[2019-11-22] MEDS: ARNICA TOPICAL SCH ×2 (10:42→20:14)
[2019-11-22] MEDS: Nicotine PATCH 14 MG/24 HR* PATCH TRANSDERM SCH (10:42)
[2019-11-22] MEDS: BIOFREEZE TOPICAL SCH ×2 (10:48→20:15)
[2019-11-22] MEDS: Acetaminophen TAB* 325 MG PO PRN (11:07)
--- NOTE | 2019-11-22 14:22 | PN ---
Progress Note Date of Service: 11/22/19 Note: DONELL KOHLI was visited. Therapy notes read and reviewed. She has no specific complaints. Her ritika were removed without incident. Steri strips applied. She is ready to go home. Current Medications: Active Medications Generic Name Dose Route Start Last Admin Trade Name Freq PRN Reason Stop Dose Admin Acetaminophen 650 mg 11/12/19 12:08 11/22/19 11:07 Tylenol Tab* PO 650 mg Q6H PRN Administration MILD PAIN or TEMP > 100.4 Amlodipine Besylate 10 mg 11/13/19 09:00 11/22/19 08:28 Norvasc Tab* PO 10 mg DAILY PRINCESS Administration Docusate Sodium 100 mg 11/12/19 21:00 11/22/19 08:28 Colace Cap* PO 100 mg BID PRINCESS Administration Enoxaparin Sodium 30 mg 11/13/19 09:00 11/22/19 08:28 Lovenox(*) SUBCUT 30 mg Q24H PRINCESS Administration Fluoxetine HCl 60 mg 11/13/19 09:00 11/22/19 08:27 Prozac Cap* PO 60 mg DAILY PRINCESS Administration Folic Acid 1 mg 11/13/19 09:00 11/22/19 08:27 Folvite Tab* PO 1 mg DAILY PRINCESS Administration Magnesium Hydroxide 30 ml 11/12/19 12:08 Milk Of Magnwillis Liq* PO Q6H PRN CONSTIPATION Nicotine 1 patch 11/13/19 08:00 11/22/19 10:42 Nicotine Patch 14 Mg/24 Hr* TRANSDERM 1 patch 0800 PRINCESS Administration Pto: Beano 1 Tab 1 tab 11/15/19 16:30 11/21/19 16:26 PO 1 tab 1630 PRINCESS Administration Pto: Biofreeze 1 1 applic 11/14/19 21:00 11/22/19 10:48 Applic) TOPICAL Not Given BID PRINCESS Non-Formulary Medication 1 applic 11/19/19 21:00 11/22/19 10:42 Arnica TOPICAL 1 applic BID PRINCESS Administration Ondansetron HCl 4 mg 11/12/19 12:16 11/17/19 15:56 Zofran Odt Tab* PO 4 mg Q6H PRN Administration NAUSEA Pantoprazole Sodium 40 mg 11/13/19 09:00 11/22/19 08:28 Protonix Tab* PO 40 mg DAILY PRINCESS Administration Pharmacy Profile Note 1 note 11/12/19 21:00 11/21/19 20:33 Nicotine Patch Removal Note* FOLLOW UP 1 note 2100 PRINCESS Administration Senna 2 tab 11/12/19 12:08 Senokot 8.6 Mg Tab* PO BEDTIME PRN CONSTIPATION Simethicone 80 mg 11/12/19 17:55 11/20/19 20:38 Mylicon Tab* PO 80 mg Q6H PRN Administration DYSPEPSIA Thiamine HCl 100 mg 11/13/19 09:00 11/22/19 08:27 Vitamin B-1 Tab* PO 100 mg DAILY PRINCESS Administration Tramadol HCl 50 mg 11/12/19 12:16 Ultram* PO Q6H PRN PAIN - MODERATE Vital Signs: Vital Signs Temp Pulse Resp BP Pulse Ox 98.2 F 90 18 131/49 96 11/22/19 05:59 11/22/19 05:59 11/22/19 05:59 11/22/19 05:59 11/22/19 05:59 Exam: GENERAL: Alert and oriented LUNGS: Clear HEART: Reg rhythm ABDOMEN: Soft +BS EXTREMITIES: left hip wound C/D/I, ritika removed. NEUROLOGIC: Sensation intact. Strength 5/5 except left hip due to pain Assessment/Plan: 1. Left Hip fracture, S/P L PATRICK: PT/OT. WBAT. Follow up with Dr. Montaño after d/c , removed ritika 2. COPD: Has not needed inhalers 3. Hypokalemia: Resolved 4. DVT Prophylaxis: Lovenox 5. Advance Directives: DNR. Has MOLST 6. Nicotine addiction: nicotone substitute as warranted 11/22/19 14:22
[2019-11-22] MEDS: BEANO PO SCH (17:23)
[2019-11-22] MEDS: Nicotine Patch Removal NOTE FOLLOW UP SCH (21:46)
[2019-11-23] MEDS: Acetaminophen TAB* 325 MG PO PRN (02:12)
[2019-11-23 06:18] VITALS: BP 140/71
[2019-11-23] MEDS: amLODIPine TAB* 5 MG PO SCH (09:56)
[2019-11-23] MEDS: ARNICA TOPICAL SCH (09:56)
[2019-11-23] MEDS: BIOFREEZE TOPICAL SCH (09:56)
[2019-11-23] MEDS: Docusate CAP* 100 MG PO SCH (09:56)
[2019-11-23] MEDS: Folic Acid TAB* 1 MG PO SCH (09:57)
[2019-11-23] MEDS: FLUoxetine CAP* 20 MG PO SCH (09:57)
[2019-11-23] MEDS: Thiamine TAB* 100 MG TAB PO SCH (09:57)
[2019-11-23] MEDS: Nicotine PATCH 14 MG/24 HR* PATCH TRANSDERM SCH (09:57)
[2019-11-23] MEDS: Pantoprazole TAB * 40 MG TAB PO SCH (09:57)
--- NOTE | 2019-11-23 11:00 | PN ---
Progress Note Date of Service: 11/23/19 Note: DONELL KOHLI was visited. Nursing and therapy notes read and reviewed. No chest pain, shortness of breath or abdominal pain. She thinks her friend Olga can do her lovenox injections. Her son will learn how to do them and teach her as well. Current Medications: Active Medications Generic Name Dose Route Start Last Admin Trade Name Freq PRN Reason Stop Dose Admin Acetaminophen 650 mg 11/12/19 12:08 11/23/19 02:12 Tylenol Tab* PO 650 mg Q6H PRN Administration MILD PAIN or TEMP > 100.4 Amlodipine Besylate 10 mg 11/13/19 09:00 11/23/19 09:56 Norvasc Tab* PO 10 mg DAILY PRINCESS Administration Docusate Sodium 100 mg 11/12/19 21:00 11/23/19 09:56 Colace Cap* PO 100 mg BID PRINCESS Administration Enoxaparin Sodium 30 mg 11/13/19 09:00 11/22/19 08:28 Lovenox(*) SUBCUT 30 mg Q24H PRINCESS Administration Fluoxetine HCl 60 mg 11/13/19 09:00 11/23/19 09:57 Prozac Cap* PO 60 mg DAILY PRINCESS Administration Folic Acid 1 mg 11/13/19 09:00 11/23/19 09:57 Folvite Tab* PO 1 mg DAILY PRINCESS Administration Magnesium Hydroxide 30 ml 11/12/19 12:08 Milk Of Magnesia Liq* PO Q6H PRN CONSTIPATION Nicotine 1 patch 11/13/19 08:00 11/23/19 09:57 Nicotine Patch 14 Mg/24 Hr* TRANSDERM 1 patch 0800 PRINCESS Administration Pto: Beano 1 Tab 1 tab 11/15/19 16:30 11/22/19 17:23 PO 1 tab 1630 PRINCESS Administration Pto: Biofreeze 1 1 applic 11/14/19 21:00 11/23/19 09:56 Applic) TOPICAL 1 applic BID PRINCESS Administration Non-Formulary Medication 1 applic 11/19/19 21:00 11/23/19 09:56 Arnica TOPICAL 1 applic BID PRINCESS Administration Ondansetron HCl 4 mg 11/12/19 12:16 11/17/19 15:56 Zofran Odt Tab* PO 4 mg Q6H PRN Administration NAUSEA Pantoprazole Sodium 40 mg 11/13/19 09:00 11/23/19 09:57 Protonix Tab* PO 40 mg DAILY PRINCESS Administration Pharmacy Profile Note 1 note 11/12/19 21:00 11/22/19 21:46 Nicotine Patch Removal Note* FOLLOW UP 1 note 2100 PRINCESS Administration Senna 2 tab 11/12/19 12:08 Senokot 8.6 Mg Tab* PO BEDTIME PRN CONSTIPATION Simethicone 80 mg 11/12/19 17:55 11/20/19 20:38 Mylicon Tab* PO 80 mg Q6H PRN Administration DYSPEPSIA Thiamine HCl 100 mg 11/13/19 09:00 11/23/19 09:57 Vitamin B-1 Tab* PO 100 mg DAILY PRINCESS Administration Tramadol HCl 50 mg 11/12/19 12:16 Ultram* PO Q6H PRN PAIN - MODERATE Vital Signs: Vital Signs Temp Pulse Resp BP Pulse Ox 97.7 F 90 16 140/71 97 11/23/19 06:17 11/23/19 06:17 11/23/19 06:30 11/23/19 06:17 11/23/19 06:17 Exam: GENERAL: Alert and appropriate LUNGS: Clear to auscultation bilaterally. HEART: Regular rate and rhythm ABDOMEN: + bowel sounds, soft, non-tender, non-distended. EXTREMITIES: left hip wound C/D/I with steristrips NEUROLOGIC: Sensation intact. Strength 5/5 BLE except left hip due to discomfort. Assessment/Plan: 1. Left Hip fracture, S/P L PATRICK: WBAT. Hip precautions. Follow up with Dr. Montaño after d/c. Removed ritika 11/22/2019 2. COPD: Has not needed inhalers 3. Hypokalemia: Resolved 4. DVT Prophylaxis: Lovenox. Teach family to assist. 5. Advance Directives: DNR. Has MOLST 6. Nicotine addiction: nicotone substitute as warranted 7. Dispo: discharge home today with family and friend support. 11/23/19 10:59
[2019-11-23] MEDS: Enoxaparin(*) 30 MG/0.3 ML SYR SUBCUT SCH (14:10)
--- NOTE | 2019-11-23 23:31 | DS ---
CC: Dr. Montaño; Dr. Reyes [facility] DISCHARGE SUMMARY: DATE OF ADMISSION: 11/12/19 DATE OF DISCHARGE: 11/23/19 ORTHOPEDIC SURGEON: Dr. Montaño. PRIMARY CARE PROVIDER: Dr. Reyes. 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 HISTORY OF PRESENT ILLNESS: For full details of her acute hospitalization leading up to her admission to [facility], please see the note dictated by Dr. Brewer on 11/12/19. REHABILITATION COURSE: During her time on the [facility], she participated well with physical therapy. At the time of discharge, she has been shown to be independent with bed mobility, transfers using a two-wheeled walker, ambulation for 150 feet using a two- wheeled walker, and climbing 12 steps using 2 rails. She can do a home exercise program independently and can recite and practice her hip precautions. She also participated well with occupational therapy and at the time of discharge is independent eating, bathing with a shower chair and using a long handled sponge to wash her feet, and dressing her upper body, but she needs assistance to thread both legs through pants and underwear. She also needs assistance for socks and shoes. She is independent with toileting and toilet transfers with a over the toilet commode and walker. She needs assistance with home management and cooking at discharge. She has been receiving Lovenox for DVT prophylaxis, but when her son went to pick it up he refused to pay the over $200 for this medication. Orthopedics was called and Benoit Alvarez advised she could go home on full dose aspririn for DVT prophylaxis. After today, she has 10 more days of required DVT prophylaxis. Her ritika were removed by Dr. Brewer on 11/21/12 with Steri-Strips placed. No incidents. Of note, she has not needed to use inhalers for her COPD during her rehabilitation stay. DISCHARGE CONDITION: Good. DISCHARGE DISPOSITION: Home with family and friends support. DISCHARGE MEDICATIONS: 1. Amlodipine 10 mg daily. 2. Arnica topically b.i.d. p.r.n. 3. Beano 1 tablet daily. 4. Biofreeze applied topically b.i.d. 5. Aspirin 325mg q. 24 hours for 10 more doses. 6. Fluoxetine 60 mg daily. FOLLOWUP: 1. Follow up with Dr. Montaño in the next week. 2. Follow up with Dr. Reyes in 1 to 2 weeks. 3. A referral is being sent for a visiting nurse services home care. DISCHARGE DIAGNOSES: 1. 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 2. Chronic obstructive pulmonary disease. 3. Depression. 4. Visual impairment. [id number]/[facility] #: [id number] MTDD
== END 2019-11-23 16:47 | disposition home health service (06) | DRG 561 ==
LOC: PMRU 11:42
PROVIDERS: ADMIT Physical Medicine & Rehabilitation; ATTEND Physical Medicine & Rehabilitation
PROC: F07Z5ZZ Bed Mobility Treatment (ICD-10-PCS; principal; 2019-11-12)
PROC: F07Z9ZZ Gait Training/Functional Ambulation Treatment (ICD-10-PCS; 2019-11-12)
PROC: F07Z8ZZ Transfer Training Treatment (ICD-10-PCS; 2019-11-12)
PROC: F08Z0ZZ Bathing/Showering Techniques Treatment (ICD-10-PCS; 2019-11-12)
PROC: F08Z1ZZ Dressing Techniques Treatment (ICD-10-PCS; 2019-11-12)
PROC: F08Z3ZZ Feeding/Eating Treatment (ICD-10-PCS; 2019-11-12)
PROC: F08Z2ZZ Grooming/Personal Hygiene Treatment (ICD-10-PCS; 2019-11-12)
DX: Z47.1 Aftercare following joint replacement surgery (principal); Z96.642 Presence of left artificial hip joint; J44.9 Chronic obstructive pulmonary disease, unspecified; F32.9 Major depressive disorder, single episode, unspecified; H54.7 Unspecified visual loss; F17.210 Nicotine dependence, cigarettes, uncomplicated; E87.6 Hypokalemia; Z66 Do not resuscitate; S72.012D Unspecified intracapsular fracture of left femur, subsequent encounter for closed fracture with routine healing; W18.30XD Fall on same level, unspecified, subsequent encounter; Z79.899 Other long term (current) drug therapy
CPT/HCPCS: 36415; 80053; 85025; A9270-GY; J1650

== ENCOUNTER 2020-10-12 19:16 | Observation (INO) ==
[2020-10-12] MEDS ORDERED: NS 0.9% 1000 ml BAG 1,000 ML IV ONE (19:32)
[2020-10-12] MEDS ORDERED: Ondansetron 4 mg VIAL 2 MG/ML 2 ml VIAL IV ONE (19:32)
[2020-10-12] MEDS ORDERED: Ondansetron 4 mg VIAL 2 MG/ML 2 ml VIAL IV PRN (20:22)
[2020-10-12] MEDS ORDERED: Iodixanol (CONTRAST) 320 MG/ML 100 ML SDV IV ONE (20:32)
[2020-10-12 21:11] LABS: Activated Partial Thrombo Time 27.6 seconds (26.0-38.0); INR 0.97 (0.82-1.09)
[2020-10-12 21:24] LABS: Troponin I 0.03 ng/mL (<0.03)
[2020-10-12 22:46] LABS: ABS Lymphocytes 0.6 10^3/ul (1.0-4.8); ABS Monocytes 0.3 10^3/ul (0-0.8); ABS Neutrophils 3.6 10^3/ul (1.5-7.7); Eosinophil % 0.8 %; Hematocrit 37 % (35-47); Hemoglobin 12.3 g/dL (12.0-16.0); Lymphocyte % 12.3 %; Mean Corpuscular HGB Conc 33 g/dL (31-36); Mean Corpuscular Hemoglobin 31 pg (27-31); Mean Corpuscular Volume 95 fL (80-97); Mean Platelet Volume 10.3 fL (7.4-10.4); Platelet Count 242 10^3/uL (150-450); Red Blood Count 3.92 10^6 /uL (3.70-4.87); Red Cell Distribution Width 14 % (10-15); White Blood Count 4.6 10^3/uL (3.5-10.8)
[2020-10-12] MEDS: Heparin 5000 UNITS/ML 1 mL VIAL SUBCUT SCH (22:52)
[2020-10-12 22:58] LABS: Anion Gap 8 mmol/L (2-11); BUN/Creatinine Ratio 20.5 (8-20); Blood Urea Nitrogen 23 mg/dL (6-24); CO2 Carbon Dioxide 26 mmol/L (22-32); Calcium 9.2 mg/dL (8.6-10.3); Chloride 103 mmol/L (101-111); EGFR African American 55.7 (>60); Glucose 135 mg/dL (70-100); Potassium 3.9 mmol/L (3.5-5.0); Sodium 137 mmol/L (135-145)
[2020-10-13] MEDS: NS 0.9% 1000 ml BAG 1,000 ML IV SCH ×2 (00:05→10:06)
[2020-10-13] MEDS ORDERED: diPHENhydraMINE 25 mg TAB PO PRN (00:18)
[2020-10-13 00:46] LABS: Troponin I 0.04 ng/mL (<0.03)
[2020-10-13 03:10] LABS: Troponin I 0.04 ng/mL (<0.03)
[2020-10-13] MEDS: Heparin 5000 UNITS/ML 1 mL VIAL SUBCUT SCH ×2 (05:41→13:37)
[2020-10-13 07:48] LABS: Urine Appearance Clear; Urine Bilirubin Negative (Negative); Urine Blood Negative (Negative); Urine Color Straw; Urine Glucose Negative (Negative); Urine Ketones Negative (Negative); Urine Nitrite Negative (Negative); Urine Protein Negative (Negative); Urine Specific Gravity 1.013 (1.010-1.030); Urine Urobilinogen Negative (Negative)
[2020-10-13 08:35] LABS: ABS Basophils 0.1 10^3/ul (0-0.2); ABS Eosinophils 0.1 10^3/ul (0-0.6); ABS Lymphocytes 0.7 10^3/ul (1.0-4.8); ABS Monocytes 0.4 10^3/ul (0-0.8); ABS Neutrophils 2.9 10^3/ul (1.5-7.7); Eosinophil % 1.8 %; Hematocrit 33 % (35-47); Hemoglobin 10.9 g/dL (12.0-16.0); Lymphocyte % 16.7 %; Mean Corpuscular HGB Conc 34 g/dL (31-36); Mean Corpuscular Hemoglobin 31 pg (27-31); Mean Corpuscular Volume 93 fL (80-97); Nucleated Red Blood Cells % 0.1; Platelet Count 212 10^3/uL (150-450); Red Blood Count 3.48 10^6 /uL (3.70-4.87); Red Cell Distribution Width 14 % (10-15)
[2020-10-13 08:51] LABS: BUN/Creatinine Ratio 15.2 (8-20); Calcium 8.7 mg/dL (8.6-10.3); EGFR Non-African American 49.6 (>60); Potassium 3.6 mmol/L (3.5-5.0)
[2020-10-13] MEDS ORDERED: Multivitamins/Minerals TAB PO SCH (09:00)
[2020-10-13 16:08] VITALS: BP 150/66
== END 2020-10-13 18:20 | disposition home or self-care (01) ==
LOC: ED 19:16 → MED 19:16
PROVIDERS: ADMIT Internal Medicine; ATTEND Hospitalist

== ENCOUNTER 2022-07-29 11:10 | Inpatient (IN) ==
[2022-07-29] MEDS ORDERED: Morphine 2 MG/ML SYRINGE IV PRN (12:01)
[2022-07-29] MEDS ORDERED: Dexamethasone IV 4 MG/ML VIAL 1 ml VIAL IV SLOW PU ONE (12:02)
[2022-07-29] MEDS ORDERED: Lidocaine PATCH 5% PATCH TRANSDERM ONE (12:02)
[2022-07-29] MEDS ORDERED: Ondansetron 4 mg VIAL 2 MG/ML 2 ml VIAL IV ONE (12:07)
[2022-07-29 13:20] LABS: ABS Eosinophils 0.1 10^3/ul (0-0.6); ABS Monocytes 0.3 10^3/ul (0-0.8); ABS Neutrophils 2.7 10^3/ul (1.5-7.7); Eosinophil % 2.5 %; Hematocrit 35 % (35-47); Hemoglobin 10.9 g/dL (12.0-16.0); Lymphocyte % 24.8 %; Mean Corpuscular HGB Conc 32 g/dL (31-36); Mean Corpuscular Hemoglobin 33 pg (27-31); Mean Corpuscular Volume 103 fL (80-97); Nucleated Red Blood Cells % 0.1; Platelet Count 201 10^3/uL (150-450); Red Blood Count 3.36 10^6 /uL (3.70-4.87); Red Cell Distribution Width 16 % (10-15); White Blood Count 4.1 10^3/uL (3.5-10.8)
[2022-07-29 13:22] LABS: Calcium 8.7 mg/dL (8.6-10.3); Potassium 4.5 mmol/L (3.5-5.0); eGFR CKD-EPI 41.6 (>60)
[2022-07-29] MEDS ORDERED: Morphine 2 MG/ML SYRINGE IV ONE (13:44)
[2022-07-29 15:18] LABS: Urine Appearance Clear; Urine Bilirubin Negative (Negative); Urine Blood Negative (Negative); Urine Color Colorless; Urine Glucose Negative (Negative); Urine Ketones Negative (Negative); Urine Nitrite Negative (Negative); Urine Protein Negative (Negative); Urine Specific Gravity 1.008 (1.002-1.030); Urine Urobilinogen Negative (Negative)
[2022-07-29] MEDS ORDERED: Orphenadrine Citrate INJ 30 mg/ml 2 ml VIAL (60 mg) IV ONE (15:49)
[2022-07-29] MEDS ORDERED: NS 0.9% 500 ml BAG 500 ML IV ONE (17:09)
[2022-07-29] MEDS ORDERED: Ondansetron 4 mg VIAL 2 MG/ML 2 ml VIAL IV PRN (17:13)
[2022-07-29] MEDS: Enoxaparin 30 MG/0.3 ML SYR SUBCUT SCH (19:40)
[2022-07-30] MEDS: Morphine 2 MG/ML SYRINGE IV PRN ×4 (01:17→21:02)
[2022-07-30] MEDS ORDERED: Senna TAB 8.6 mg TAB PO PRN (05:59)
[2022-07-30] MEDS ORDERED: Magnesium Hydroxide LIQ 30 ML UDC PO PRN (05:59)
[2022-07-30] MEDS ORDERED: Polyethylene Glycol 3350 17 GM PACKET PO PRN (05:59)
[2022-07-30 09:23] LABS: Calcium 8.2 mg/dL (8.6-10.3); Potassium 4.5 mmol/L (3.5-5.0); eGFR CKD-EPI 38.6 (>60)
[2022-07-30] MEDS: Nicotine PATCH 14 MG/24 HR PATCH TRANSDERM SCH (10:44)
[2022-07-30] MEDS: Cholecalciferol (VIT D3) 1,000 unit TAB PO SCH (10:44)
[2022-07-30] MEDS: NF: Mirabegron 50 mg ER TAB (NF) PO SCH (10:55)
[2022-07-30] MEDS: Magnesium Hydroxide LIQ 30 ML UDC PO SCH ×2 (10:59→23:10)
[2022-07-30] MEDS: Enoxaparin 30 MG/0.3 ML SYR SUBCUT SCH (17:50)
[2022-07-31 07:51] LABS: ABS Lymphocytes 0.7 10^3/ul (1.0-4.8); ABS Monocytes 0.2 10^3/ul (0-0.8); ABS Neutrophils 3.2 10^3/ul (1.5-7.7); Eosinophil % 0.2 %; Hematocrit 31 % (35-47); Hemoglobin 10.3 g/dL (12.0-16.0); Lymphocyte % 16.9 %; Mean Corpuscular HGB Conc 33 g/dL (31-36); Mean Corpuscular Hemoglobin 33 pg (27-31); Mean Corpuscular Volume 100 fL (80-97); Mean Platelet Volume 10.5 fL (7.4-10.4); Platelet Count 187 10^3/uL (150-450); Red Blood Count 3.14 10^6 /uL (3.70-4.87); Red Cell Distribution Width 15 % (10-15); White Blood Count 4.1 10^3/uL (3.5-10.8)
[2022-07-31 08:18] LABS: Calcium 8.6 mg/dL (8.6-10.3); Magnesium 2.3 mg/dL (1.9-2.7); Potassium 4.7 mmol/L (3.5-5.0); eGFR CKD-EPI 39.7 (>60)
[2022-07-31] MEDS: Cholecalciferol (VIT D3) 1,000 unit TAB PO SCH (10:42)
[2022-07-31] MEDS: Nicotine PATCH 14 MG/24 HR PATCH TRANSDERM SCH (10:42)
[2022-07-31] MEDS: Magnesium Hydroxide LIQ 30 ML UDC PO SCH ×2 (10:42→20:35)
[2022-07-31] MEDS: NF: Mirabegron 50 mg ER TAB (NF) PO SCH (10:50)
[2022-07-31] MEDS: Enoxaparin 30 MG/0.3 ML SYR SUBCUT SCH (18:05)
[2022-08-01 06:18] LABS: ABS Lymphocytes 0.8 10^3/ul (1.0-4.8); ABS Monocytes 0.4 10^3/ul (0-0.8); ABS Neutrophils 5.2 10^3/ul (1.5-7.7); Eosinophil % 0.1 %; Hematocrit 34 % (35-47); Lymphocyte % 11.8 %; Mean Corpuscular HGB Conc 32 g/dL (31-36); Mean Corpuscular Hemoglobin 32 pg (27-31); Mean Corpuscular Volume 100 fL (80-97); Mean Platelet Volume 10.2 fL (7.4-10.4); Platelet Count 216 10^3/uL (150-450); Red Blood Count 3.39 10^6 /uL (3.70-4.87); Red Cell Distribution Width 15 % (10-15); White Blood Count 6.4 10^3/uL (3.5-10.8)
[2022-08-01 06:46] LABS: Calcium 8.9 mg/dL (8.6-10.3); Magnesium 2.9 mg/dL (1.9-2.7); Potassium 4.6 mmol/L (3.5-5.0); eGFR CKD-EPI 50.2 (>60)
[2022-08-01] MEDS: Cholecalciferol (VIT D3) 1,000 unit TAB PO SCH (10:50)
[2022-08-01] MEDS: Nicotine PATCH 14 MG/24 HR PATCH TRANSDERM SCH ×2 (10:51→11:02)
[2022-08-01] MEDS: Magnesium Hydroxide LIQ 30 ML UDC PO SCH ×2 (10:52→21:04)
[2022-08-01] MEDS: NF: Mirabegron 50 mg ER TAB (NF) PO SCH (10:52)
[2022-08-01] MEDS: Enoxaparin 30 MG/0.3 ML SYR SUBCUT SCH (21:04)
[2022-08-02 06:33] LABS: ABS Lymphocytes 1.1 10^3/ul (1.0-4.8); ABS Monocytes 0.4 10^3/ul (0-0.8); Eosinophil % 0.3 %; Hematocrit 34 % (35-47); Hemoglobin 10.9 g/dL (12.0-16.0); Lymphocyte % 24.7 %; Mean Corpuscular HGB Conc 32 g/dL (31-36); Mean Corpuscular Hemoglobin 32 pg (27-31); Mean Corpuscular Volume 100 fL (80-97); Mean Platelet Volume 10.5 fL (7.4-10.4); Platelet Count 198 10^3/uL (150-450); Red Blood Count 3.38 10^6 /uL (3.70-4.87); Red Cell Distribution Width 16 % (10-15); White Blood Count 4.5 10^3/uL (3.5-10.8)
[2022-08-02 06:51] LABS: Anion Gap 9 mmol/L (2-11); Blood Urea Nitrogen 43 mg/dL (6-24); CO2 Carbon Dioxide 30 mmol/L (22-32); Calcium 8.7 mg/dL (8.6-10.3); Chloride 102 mmol/L (101-111); Glucose 89 mg/dL (70-100); Potassium 4.6 mmol/L (3.5-5.0); Sodium 141 mmol/L (135-145)
[2022-08-02] MEDS ORDERED: NS 0.9% 500 ml BAG 500 ML IV SCH (08:00)
[2022-08-02 10:18] LABS: % Iron Saturation 23 % (15-55); Iron 67 ug/dL (50-212); Total Iron Binding Capacity 291 mcg/dL (250-450); Transferrin 208 mg/dL (203-362); Unsaturated Iron Binding 224 ug/dL
[2022-08-02 10:38] LABS: Ferritin 92.8 ng/mL (11-307)
[2022-08-02 10:44] LABS: PCO2 Arterial 46 mmHg (35-45); PO2 Arterial 82 mmHg (80-100)
[2022-08-02] MEDS: NF: Mirabegron 50 mg ER TAB (NF) PO SCH (10:49)
[2022-08-02 11:01] LABS: Folate > 20.00 ng/mL (5.90-24.80)
[2022-08-02 11:02] LABS: Vitamin B12 341 pg/mL (180-914)
[2022-08-02] MEDS: Cholecalciferol (VIT D3) 1,000 unit TAB PO SCH (11:14)
[2022-08-02] MEDS: Nicotine PATCH 14 MG/24 HR PATCH TRANSDERM SCH (11:17)
[2022-08-02 11:19] LABS: Urine Appearance Clear; Urine Bilirubin Negative (Negative); Urine Blood Negative (Negative); Urine Color Straw; Urine Glucose Negative (Negative); Urine Ketones Negative (Negative); Urine Nitrite Negative (Negative); Urine Protein Negative (Negative); Urine Specific Gravity 1.011 (1.002-1.030); Urine Urobilinogen Negative (Negative)
[2022-08-02] MEDS ORDERED: Sodium Phosphate ADULT ENEMA 133 ML BTL PR PRN (14:19)
[2022-08-02 15:47] LABS: Albumin 3.9 g/dL (3.2-5.2); Albumin/Globulin Ratio 1.7 (1-3); Calcium 8.7 mg/dL (8.6-10.3); Globulin 2.3 g/dL (2-4); Total Bilirubin 0.4 mg/dL (0.2-1.0); Total Protein 6.2 g/dL (6.4-8.9)
[2022-08-02] MEDS: Enoxaparin 30 MG/0.3 ML SYR SUBCUT SCH (18:05)
[2022-08-03] MEDS: Senna TAB 8.6 mg TAB PO SCH ×2 (00:38→23:35)
[2022-08-03 06:36] LABS: ABS Eosinophils 0.1 10^3/ul (0-0.6); ABS Lymphocytes 1.6 10^3/ul (1.0-4.8); ABS Monocytes 0.4 10^3/ul (0-0.8); ABS Neutrophils 2.2 10^3/ul (1.5-7.7); Eosinophil % 2.3 %; Hematocrit 35 % (35-47); Hemoglobin 11.5 g/dL (12.0-16.0); Lymphocyte % 36.1 %; Mean Corpuscular HGB Conc 33 g/dL (31-36); Mean Corpuscular Hemoglobin 33 pg (27-31); Mean Corpuscular Volume 100 fL (80-97); Mean Platelet Volume 10.5 fL (7.4-10.4); Platelet Count 234 10^3/uL (150-450); Red Cell Distribution Width 16 % (10-15); White Blood Count 4.3 10^3/uL (3.5-10.8)
[2022-08-03 07:25] LABS: Calcium 8.9 mg/dL (8.6-10.3); Potassium 4.2 mmol/L (3.5-5.0); eGFR CKD-EPI 37.2 (>60)
[2022-08-03] MEDS: Nicotine PATCH 14 MG/24 HR PATCH TRANSDERM SCH ×2 (10:08→10:15)
[2022-08-03] MEDS: Cholecalciferol (VIT D3) 1,000 unit TAB PO SCH (10:09)
[2022-08-03] MEDS: NF: Mirabegron 50 mg ER TAB (NF) PO SCH (10:09)
[2022-08-03] MEDS: CMCS: Alendronate 70 mg TAB (NF) PO SCH (10:16)
[2022-08-03 16:59] LABS: High Sensitivity Troponin 1 Hr 15 pg/mL (<15)
[2022-08-03] MEDS: Enoxaparin 30 MG/0.3 ML SYR SUBCUT SCH (17:25)
[2022-08-04 09:32] LABS: Hematocrit 39 % (35-47); Hemoglobin 12.6 g/dL (12.0-16.0); Mean Corpuscular HGB Conc 32 g/dL (31-36); Mean Corpuscular Hemoglobin 32 pg (27-31); Mean Corpuscular Volume 100 fL (80-97); Red Blood Count 3.92 10^6 /uL (3.70-4.87); Red Cell Distribution Width 16 % (10-15); White Blood Count 4.2 10^3/uL (3.5-10.8)
[2022-08-04 09:51] LABS: Calcium 9.1 mg/dL (8.6-10.3); Magnesium 2.1 mg/dL (1.9-2.7); Potassium 4.1 mmol/L (3.5-5.0); eGFR CKD-EPI 45.5 (>60)
[2022-08-04 09:55] LABS: ABS Eosinophils 0.2 10^3/ul (0-0.6); ABS Lymphocytes 1.1 10^3/ul (1.0-4.8); ABS Monocytes 0.4 10^3/ul (0-0.8); ABS Neutrophils 2.6 10^3/ul (1.5-7.7); Eosinophil % 4.3 %; Mean Platelet Volume 10.6 fL (7.4-10.4); Nucleated Red Blood Cells % 0.2; Platelet Count 239 10^3/uL (150-450)
[2022-08-04] MEDS: Nicotine PATCH 14 MG/24 HR PATCH TRANSDERM SCH (10:08)
[2022-08-04] MEDS: Cholecalciferol (VIT D3) 1,000 unit TAB PO SCH (10:09)
[2022-08-04] MEDS: NF: Mirabegron 50 mg ER TAB (NF) PO SCH (10:09)
[2022-08-04] MEDS: Enoxaparin 30 MG/0.3 ML SYR SUBCUT SCH (17:19)
[2022-08-04] MEDS: Senna TAB 8.6 mg TAB PO SCH (23:22)
[2022-08-05] MEDS: Cholecalciferol (VIT D3) 1,000 unit TAB PO SCH (10:22)
[2022-08-05] MEDS: Nicotine PATCH 14 MG/24 HR PATCH TRANSDERM SCH (10:23)
[2022-08-05] MEDS: NF: Mirabegron 50 mg ER TAB (NF) PO SCH (10:28)
[2022-08-05] MEDS: Enoxaparin 30 MG/0.3 ML SYR SUBCUT SCH (17:30)
[2022-08-05] MEDS: Senna TAB 8.6 mg TAB PO SCH (20:53)
[2022-08-06 05:22] LABS: ABS Eosinophils 0.2 10^3/ul (0-0.6); ABS Lymphocytes 1.5 10^3/ul (1.0-4.8); ABS Monocytes 0.4 10^3/ul (0-0.8); ABS Neutrophils 1.8 10^3/ul (1.5-7.7); Eosinophil % 5.7 %; Hematocrit 33 % (35-47); Hemoglobin 10.8 g/dL (12.0-16.0); Lymphocyte % 37.4 %; Mean Corpuscular HGB Conc 32 g/dL (31-36); Mean Corpuscular Hemoglobin 33 pg (27-31); Mean Corpuscular Volume 101 fL (80-97); Mean Platelet Volume 10.9 fL (7.4-10.4); Platelet Count 196 10^3/uL (150-450); Red Blood Count 3.31 10^6 /uL (3.70-4.87); Red Cell Distribution Width 15 % (10-15)
[2022-08-06 05:35] LABS: Calcium 8.5 mg/dL (8.6-10.3); Potassium 4.2 mmol/L (3.5-5.0); eGFR CKD-EPI 37.6 (>60)
[2022-08-06] MEDS ORDERED: Lactated Ringers 1000 ml BAG 1,000 ML IV SCH (09:00)
[2022-08-06] MEDS: Cholecalciferol (VIT D3) 1,000 unit TAB PO SCH (09:01)
[2022-08-06] MEDS: Nicotine PATCH 14 MG/24 HR PATCH TRANSDERM SCH (09:03)
[2022-08-06] MEDS: NF: Mirabegron 50 mg ER TAB (NF) PO SCH (09:07)
[2022-08-06] MEDS: Enoxaparin 30 MG/0.3 ML SYR SUBCUT SCH (16:54)
[2022-08-06] MEDS: Senna TAB 8.6 mg TAB PO SCH (20:29)
[2022-08-07 06:51] LABS: ABS Eosinophils 0.2 10^3/ul (0-0.6); ABS Lymphocytes 1.3 10^3/ul (1.0-4.8); ABS Monocytes 0.5 10^3/ul (0-0.8); ABS Neutrophils 2.4 10^3/ul (1.5-7.7); Eosinophil % 4.9 %; Hematocrit 32 % (35-47); Hemoglobin 10.6 g/dL (12.0-16.0); Lymphocyte % 29.4 %; Mean Corpuscular HGB Conc 33 g/dL (31-36); Mean Corpuscular Hemoglobin 33 pg (27-31); Mean Corpuscular Volume 100 fL (80-97); Platelet Count 195 10^3/uL (150-450); Red Blood Count 3.22 10^6 /uL (3.70-4.87); Red Cell Distribution Width 15 % (10-15); White Blood Count 4.4 10^3/uL (3.5-10.8)
[2022-08-07 07:15] LABS: Calcium 8.5 mg/dL (8.6-10.3); Potassium 4.3 mmol/L (3.5-5.0)
[2022-08-07] MEDS: Cholecalciferol (VIT D3) 1,000 unit TAB PO SCH (08:43)
[2022-08-07] MEDS: NF: Mirabegron 50 mg ER TAB (NF) PO SCH (08:54)
[2022-08-07] MEDS: Nicotine PATCH 14 MG/24 HR PATCH TRANSDERM SCH (08:55)
[2022-08-07] MEDS ORDERED: Lactated Ringers 1000 ml BAG 1,000 ML IV SCH (11:00)
[2022-08-07] MEDS: Enoxaparin 30 MG/0.3 ML SYR SUBCUT SCH (17:43)
[2022-08-07] MEDS: Senna TAB 8.6 mg TAB PO SCH (19:27)
[2022-08-08 07:12] LABS: Calcium 8.7 mg/dL (8.6-10.3); Potassium 4.4 mmol/L (3.5-5.0); eGFR CKD-EPI 43.7 (>60)
[2022-08-08] MEDS: Cholecalciferol (VIT D3) 1,000 unit TAB PO SCH (09:02)
[2022-08-08] MEDS: Nicotine PATCH 14 MG/24 HR PATCH TRANSDERM SCH (09:03)
[2022-08-08] MEDS: NF: Mirabegron 50 mg ER TAB (NF) PO SCH (09:03)
[2022-08-08] MEDS: Enoxaparin 30 MG/0.3 ML SYR SUBCUT SCH (17:45)
[2022-08-08] MEDS: Senna TAB 8.6 mg TAB PO SCH (19:53)
[2022-08-09 07:22] LABS: Calcium 8.7 mg/dL (8.6-10.3); Potassium 4.1 mmol/L (3.5-5.0); eGFR CKD-EPI 47.5 (>60)
[2022-08-09] MEDS: Cholecalciferol (VIT D3) 1,000 unit TAB PO SCH ×3 (09:26→11:08)
[2022-08-09] MEDS: NF: Mirabegron 50 mg ER TAB (NF) PO SCH (09:38)
[2022-08-09] MEDS: Nicotine PATCH 14 MG/24 HR PATCH TRANSDERM SCH (09:39)
[2022-08-09] MEDS: Enoxaparin 30 MG/0.3 ML SYR SUBCUT SCH (17:03)
[2022-08-09] MEDS: Senna TAB 8.6 mg TAB PO SCH (20:28)
[2022-08-10] MEDS: Nicotine PATCH 14 MG/24 HR PATCH TRANSDERM SCH (09:30)
[2022-08-10] MEDS: CMCS: Alendronate 70 mg TAB (NF) PO SCH (09:36)
[2022-08-10] MEDS: Cholecalciferol (VIT D3) 1,000 unit TAB PO SCH (09:36)
[2022-08-10] MEDS: NF: Mirabegron 50 mg ER TAB (NF) PO SCH (09:38)
[2022-08-10 11:36] VITALS: BP 104/61
[2022-08-10 13:22] LABS: Rapid COVID-19 Molecular Undetected (Undetected)
== END 2022-08-10 13:00 | DRG 551 ==
LOC: ED 11:10 → EDHOLD 11:10 → SUATTDRO 17:11 → MED 07-30 10:03 → SUATTDRO 07-31 16:30 → MED 08-01 05:18
PROVIDERS: ADMIT Internal Medicine; ATTEND Internal Medicine